=== PATIENT | female | born 1950 | race Caucasian/White ===

== ENCOUNTER 2017-10-20 06:07 | Inpatient (IN) | payer MEDICARE, OTHER, SELFPAY ==
[2017-10-20 06:08] VITALS: BP 173/86; PULSE 70; RESP 22; TEMP 36.4; O2SAT 95; BMI 28.9
--- NOTE | 2017-10-20 06:46 | ED.DCSUM_ITS ---
- ER Visit Summary Date of Service: 10/20/17 Chief Complaint: Nausea and vomiting History of Present Illness: The patient is a 67 F presents by EMS for nausea and vomiting since last evening. Total 4 episodes. No hematemesis. No diarrhea. 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 States his lives in an apartment, states her DPOA is next door. States she has not eaten in 2 days. Denies fever, chills, sweats. No abdominal pain. No cough. Has not vomited in a long while per patient. States unable to keep fluids down. Physical Examination: General: Alert and oriented ?3, no acute distress HEENT: Normocephalic, atraumatic. Moist mucosa membranes Neck: supple, nontender. Cardiovascular: Regular rate and rhythm, no murmurs Respiratory: Normal breath sounds, symmetric, no distress Abdomen: Soft, nontender, nondistended. No guarding or rebound. Negative Sanchez's or McBurney's tenderness. Extremities: Bilateral below knee amputation. No erythema. Neuro: no focal neurological deficits. Test Results: CBC, BMP pending Emergency Department Course and Treatment: Patient vital signs stable. Reports unable to tolerate p.o. intake. She had a emesis bag nearby. IV will be placed , fluids will be given. I will order for basic labs and Zofran. Plan to reevaluate in tests with p.o. challenge. Treatment Plan: [] Disposition: [] Impression: 1. Nausea and vomiting This note was generated with [employer] dictation software. It may contain incorrect words, spelling, and punctuation that were not noted in review of the chart prior to signing ED Disposition - Plan for ED Patient: Disposition: Home or Assisted Living Chief Complaint: Nausea/Vomiting Diagnosis: Nausea & vomiting Instructions: ED Nausea Vomiting Prescriptions: Ondansetron [Zofran Odt] 8 mg PO Q6H PRN PRN #10 PRN Reason: nausea or vomiting Referrals: Jarret Clark MD [Primary Care Provider] - 3-5 Days
[2017-10-20] MEDS: Ondansetron 4 MG/2 ML Vial IV (06:47)
[2017-10-20 06:58] LABS: Anion Gap 16 (5-15); BUN 63 mg/dL (7-18); BUN/Creat Ratio 33.7 RATIO (10-20); Calcium,Total 8.8 mg/dL (8.5-10.1); Chloride 110 mmol/L (98-107); Creatinine, Serum 1.87 mg/dL (0.55-1.02); EST Glomerular Filtration Rate 28 mL/min (>60); Est Glom Filt Rate - Afr Amer 34 mL/min (>60); Estimated Creatinine Clearance 22.77 ml/min; Glucose 235 mg/dL (70-110); Potassium 4.6 mmol/L (3.5-5.1); Sodium Level 140 mmol/L (136-145)
[2017-10-20 07:05] LABS: Absolute Lymphocyte Count 1.15 X10^3/ul (0.83-4.51); Absolute Neutrophil Count 7.7 X10^3/uL (2.0-7.7); Basophil# 0.03 X10^3/uL; Basophil% 0.3 % (0-1); Eosinophil# 0.05 X10^3/uL; Eosinophils% 0.5 % (0-5); Hematocrit 22.3 % (37-47); Hemoglobin 7.3 g/dl (12.0-15.0); Lymphocyte # 1.15 X10^3/ul (4.0); Lymphocyte % 12.3 % (19-41); Mean Corp Hgb Conc 32.7 g/gl (32-36); Mean Corpuscular Hgb 28.9 pg (27.0-32.0); Mean Corpuscular Volume 88.1 fL (81-99); Mean Platelet Vol. 10.2 fl (6.2-12.0); Monocyte# 0.36 X10^3/uL; Monocyte% 3.9 % (0-10); Neutrophil # 7.73 X10^3/uL (2.7-7.7); Neutrophil % 82.9 % (47-70); Platelet Count 418 K/mm3 (150-450); RBC Distribution Width CV 14.7 % (11.6-14.6); Red Blood Count 2.53 M/mm3 (4.2-5.4); White Blood Count 9.3 K/mm3 (4.4-11.0)
[2017-10-20 07:16] LABS: POSITIVE COUNT NO; POSITIVE DIFFERENTIAL NO; POSITIVE MORPHOLOGY NO
--- NOTE | 2017-10-20 07:39 | EKG12_ITS ---
Test Reason : N/V Blood Pressure : / mmHG Vent. Rate : 074 BPM Atrial Rate : 074 BPM P-R Int : 180 ms QRS Dur : 090 ms QT Int : 428 ms P-R-T Axes : 088 073 251 degrees QTc Int : 475 ms Normal sinus rhythm ST & T wave abnormality, consider inferior ischemia ST & T wave abnormality, consider anterolateral ischemia Prolonged QT Abnormal ECG Possible digoxin effect Confirmed by BRYANT KILGORE ([id number]), acquisitions editor TEVIN DE LA ROSA ([id number]) on 10/21/2017 11:35:58 AM Referred By: LORETO Confirmed By:BRYANT KILGORE
--- NOTE | 2017-10-20 08:04 | NURSING ---
called ccadriana suarez, talked to elena paul. she will fax most recent labs, last office visit and med list.
[2017-10-20 08:19] LABS: AST(SGOT) 11 U/L (15-37); Alanine Aminotransfer ALT/SGPT 11 U/L (12-78); Albumin, Serum 3.4 g/dL (3.4-5.0); Alkaline Phosphatase 74 U/L (45-117); Bilirubin, Direct 0.08 mg/dL (0.00-0.30); Globulin 3.4 g/dL (2.2-4.2); Protein, Total 6.8 g/dL (6.4-8.2)
[2017-10-20] MEDS: 0.9% Normal Saline 1,000 ML 999 ML IV (08:20)
[2017-10-20 08:22] LABS: Lipase 74 U/L (73-393)
[2017-10-20 08:23] LABS: Mucous, Urine 0 SEEN /hpf (<or=2+)
[2017-10-20 08:26] LABS: Color, Urine Yellow (Yellow); Glucose, Dipstick 50 mg/dl (Normal); Ketone-Dipstick 50 mg/dl (Negative); Leukocyte Esterase-Dipstick 25 /ul (Negative); Nitrite-Dipstick Negative (Negative); Occult Blood-Urine 10 /ul (Negative); Protein-Dipstick 100 mg/dl (Negative); Urine Bilirubin Dipstick Negative (Negative); Urine Clarity Sl. Cloudy (Clear); Urine Urobilinogen Normal (Normal)
[2017-10-20 08:32] LABS: Bacteria 2+ /hpf (None Seen); Red Blood Cells-Urine 0-5 SEEN /hpf (0-5); Squamous Epithelial Cells - UA 0-5 SEEN /hpf (5-10); White Blood Cells 0-5 SEEN /hpf (0-5)
[2017-10-20 08:32] LABS: Lactic Acid 2.1 mmol/L (0.4-2.0)
[2017-10-20 08:37] VITALS: BP 176/70; PULSE 88; RESP 17; O2SAT 99
[2017-10-20 09:01] VITALS: BP 180/63; PULSE 81; RESP 17; O2SAT 100
--- NOTE | 2017-10-20 09:01 | NURSING ---
MED SURG OBS N, Leonie VARMA
--- NOTE | 2017-10-20 09:19 | ED.RN ---
THIS NURSE NOTIFIED VANIA MARTIN PER PATIENT REQUEST THAT SHE WAS BEING ADMITTED. PATIENT ALSO REQUESTS THAT SHE BE ADDED TO HER CONTACT LIST. [phone]
[2017-10-20 09:58] VITALS: BMI 23.1; BMI 29.0
[2017-10-20] MEDS: 0.9% Normal Saline 1,000 ML 150 ML IV ×3 (10:00→23:02)
[2017-10-20 10:17] VITALS: BP 146/56; PULSE 87; RESP 18; TEMP 36.7; O2SAT 97
[2017-10-20 11:41] LABS: Bedside Glucose 168 mg/dL (70-110)
[2017-10-20] MEDS: Heparin Injection 5,000 UNITS/ML Syringe 5000 UNITS SC ×2 (11:41→22:00)
[2017-10-20 12:00] LABS: Reflex Lactate? Y
[2017-10-20 12:58] LABS: Lactic Acid 1.5 mmol/L (0.4-2.0)
--- NOTE | 2017-10-20 13:04 | HP.PCM_ITS ---
Problem List (1) RIK (acute kidney injury) Status: Acute (2) Dehydration Status: Acute (3) Nausea & vomiting Status: Acute (4) DM2 (diabetes mellitus, type 2) Status: Chronic Qualifiers: Diabetes mellitus complication status: with kidney complications Diabetes mellitus complication detail: with chronic kidney disease Chronic kidney disease stage: stage 3 (moderate) (5) Essential (primary) hypertension Status: Chronic History of Present Illness Date of Admission: 10/20/17 Chief Complaint: Intractable nausea and vomiting The patient is a 67 year old F with past medical history sent on for diabetes mellitus type 2, chronic kidney disease stage III, essential hypertension bilateral below knee amputee who presented with intractable nausea vomiting. Patient symptoms started a day prior to coming in. In addition to above symptoms patient did complain of chills but did not experience any subjective fever. Her symptoms persisted throughout the whole night and elected to present to the ED in the a.m. Patient workup was only significant for slight increase in her creatinine. She was admitted to regular nursing floor for subsequent management. Past Medical History Past Medical History (Chronic Problems): Chronic Problems DM2 (diabetes mellitus, type 2) (Chronic) Essential (primary) hypertension (Chronic) Allergies allopurinol Allergy (Verified 10/20/17 06:16) Unknown bacitracin Allergy (Verified 10/20/17 06:16) Unknown gemfibrozil [Gemfibrozil] Allergy (Verified 10/20/17 06:16) Unknown gentamicin [Gentamicin] Allergy (Verified 10/20/17 06:16) Unknown Penicillins Allergy (Verified 10/20/17 06:16) Unknown pentoxifylline Allergy (Verified 10/20/17 06:16) Unknown pioglitazone Allergy (Verified 10/20/17 06:16) Unknown pioglitazone HCl [From Actos] Allergy (Verified 10/20/17 06:16) Unknown tramadol HCl [From Ultram] Allergy (Verified 10/20/17 06:16) Unknown simvastatin Adverse Reaction (Verified 10/20/17 06:16) Pain in joints Home Medications: Ambulatory Orders Medication Instructions Recorded Enalapril Maleate [Vasotec] 10 mg PO DAILY 07/03/13 Gabapentin [Neurontin] 600 mg PO DAILY 07/03/13 Aspirin 325 mg PO DAILY@0800 07/18/13 Clopidogrel Bisulfate [Plavix] 75 mg PO DAILY 07/18/13 Fluoxetine [Prozac] 10 mg PO DAILY 02/08/14 Meloxicam [Meloxicam] 15 mg PO DAILY 10/20/17 Metformin HCl [Glucophage] 500 mg PO BID 10/20/17 Oxybutynin Chloride [Ditropan Xl] 15 mg PO DAILY 10/20/17 Surgical History: - - Bilateral BKA Lives: Alone Smoking Status: Former smoker - *Family History Maternal History Items: No pertinent history Review of Systems Constitutional: Reports: Chills HEENT: Denies: Head Aches, Sinus Congestion, Sinus Drainage Cardiovascular: Reports: Chest Pain Gastrointestinal: Reports: Nausea, Vomiting. Denies: Diarrhea Genitourinary: Denies: Dysuria, Frequency, Hematuria, Urgency Musculoskeletal: Denies: Joint Pain, Joint Tenderness Skin: Denies: Rash Neurological: Denies: Focal weakness, Numbness, Tingling Psychiatric: Reports: Anxiety Hematologic/ Lymphatic: Denies: Easy Bruising, Easy Bleeding VTE Information - Inpt Only VTE Present on Admission: No VTE Mechan Device Prophylaxis: Knee High QUINTIN Hose VTE Pharm Prophylaxis ordered?: Yes Patient Problems: Active and Suspected Problems Nausea & vomiting (Acute) RIK (acute kidney injury) (Acute) Dehydration (Acute) Objective: GENERAL: Appears ill looking HEENT: Clear conjunctiva, NECK; supple, normal thyroid, CHEST: Clear to auscultation bilaterally,. HEART: Regular S1 S2, no audible murmurs ABDOMEN: soft, normoactive bowel sounds, RECTAL: deferred EXTREMITIES: Right BKA SURGERY SCHEDULER: Awake, no lateralizing signs. SKIN: No rash - Physical Exam Vital Signs Temp Pulse Resp BP Pulse Ox 98.1 F 87 18 146/56 H 97 10/20/17 10:17 10/20/17 10:17 10/20/17 10:17 10/20/17 10:17 10/20/17 10:17 Oxygen Delivery Method Room Air Weight: 66.9 kg Body Mass Index (BMI) 23.1 Laboratory Tests Past 24 Hrs 10/20/17 12:20 Lactic Acid 1.5 POC Glucose 10/20/17 11:34 POC Glucose 168 H Assessment/Plan Active and Suspected Problems Nausea & vomiting (Acute) RIK (acute kidney injury) (Acute) Dehydration (Acute) Patient is a 67 year old lady with past medical history significant for for hypertension, diabetes mellitus type 2, bilateral BKA presented with intractable nausea and vomiting 1. Intractable nausea vomiting suspected to be secondary to gastritis admitted to regular nursing floor for symptomatic treatment with PPI as well as antinausea medication. In view of patient associated chills also ordered for influenza as a 2. Acute kidney injury secondary to dehydration as a result of above patient is on IV fluids with monitoring of electrolyte 3. Diabetes mellitus type 2 patient oral hypoglycemic agents held, subsequently placed on 1800 ADA diet with Accu-Cheks before meals and at bedtime with sliding scale coverage 4. Hypertension-blood pressure controlled, home medications continued with dose adjustment as needed 5. Lactic acidosis secondary to use of metformin; held patient does not have any evidence of sepsis 6. Chronic kidney disease stage III secondary to diabetic nephropathy X 7. Peripheral vascular disease with bilateral lower extremity below-knee amputation patient is currently on dual antiplatelet therapy with aspirin and Plavix did continue 8. Anemia secondary to anemia of chronic disorder/CKD monitoring H&H with plans to transfuse if patient becomes symptomatic or hemoglobin falls below 7. Did order for stool guaiac in addition to iron studies 9. DVT prophylaxis; SC heparin CODE STATUS; full code Code Visit Inpatient E&M: 24313 Init Hosp L3
[2017-10-20 16:15] VITALS: BP 141/61; PULSE 77; RESP 18; TEMP 36.7; O2SAT 97
[2017-10-20 17:26] LABS: Bedside Glucose 191 mg/dL (70-110)
[2017-10-20 20:59] VITALS: BP 104/70; PULSE 95; RESP 16; TEMP 37.2; O2SAT 92
[2017-10-20 22:01] LABS: Bedside Glucose 161 mg/dL (70-110)
[2017-10-20] MEDS: MELATONIN 10 MG TABLET PO (23:01)
[2017-10-21] VITALS (38 sets, daily range): BP systolic 88–122; BP diastolic 47–83; PULSE 62–89; RESP 13–20; TEMP 36.3–37.1; O2SAT 95–100
[2017-10-21] MEDS: 0.9% Normal Saline 1,000 ML 150 ML IV ×3 (05:38→22:57)
[2017-10-21 06:40] LABS: Anion Gap 12 (5-15); BUN 38 mg/dL (7-18); BUN/Creat Ratio 27.9 RATIO (10-20); Calcium,Total 7.8 mg/dL (8.5-10.1); Chloride 112 mmol/L (98-107); Creatinine, Serum 1.36 mg/dL (0.55-1.02); EST Glomerular Filtration Rate 41 mL/min (>60); Est Glom Filt Rate - Afr Amer 50 mL/min (>60); Glucose 186 mg/dL (70-110); Magnesium 1.7 mg/dL (1.6-2.6); Sodium Level 138 mmol/L (136-145)
[2017-10-21 06:41] LABS: Bedside Glucose 175 mg/dL (70-110)
[2017-10-21] MEDS: FLUoxetine 10 MG Capsule PO (08:21)
[2017-10-21] MEDS: Aspirin 325 MG Tablet PO (08:21)
[2017-10-21] MEDS: Clopidogrel Bisulfate 75 MG Tablet PO (08:21)
[2017-10-21] MEDS: Heparin Injection 5,000 UNITS/ML Syringe 5000 UNITS SC (08:21)
[2017-10-21] MEDS: Lisinopril 10 MG Tablet PO (08:21)
[2017-10-21] MEDS: Gabapentin 100 MG Capsule PO ×3 (08:21→16:54)
[2017-10-21] MEDS: Tolterodine Tartrate 4 MG CAP.SA PO (08:24)
--- NOTE | 2017-10-21 09:15 | PCM.PN.HOSP ---
Patient Problems: Active and Suspected Problems Nausea & vomiting (Acute) RIK (acute kidney injury) (Acute) Dehydration (Acute) Subjective: Patient seen still complains of nausea. She however has a new symptom which is significant epigastric discomfort. EKG obtained reviewed demonstrated anterolateral ischemia which is not new. Subsequently ordered serial cardiac enzymes and a nuclear stress test to be performed on 10/22/17 Objective: GENERAL: Appears ill looking HEENT: Clear conjunctiva, NECK; supple, normal thyroid, CHEST: Clear to auscultation bilaterally,. HEART: Regular S1 S2, no audible murmurs ABDOMEN: soft, normoactive bowel sounds, RECTAL: deferred EXTREMITIES: Bilateral BKA ESTATE PLANNING DIRECTOR: Awake, no lateralizing signs. SKIN: No rash Vitals/I&O's: Vital Signs Temp Pulse Resp BP Pulse Ox 98.2 F 89 18 105/70 95 10/21/17 03:00 10/21/17 03:00 10/21/17 03:00 10/21/17 03:00 10/21/17 03:00 Oxygen Delivery Method Room Air Weight: 66.9 kg Body Mass Index (BMI) 23.1 Intake and Output for Last 24 Hours 10/19/17 10/20/17 10/21/17 23:59 23:59 23:59 Intake Total 1450 / 1450 919 / 919 Balance 1450 / 1450 919 / 919 Laboratory Results 10/20/17 11:34: POC Glucose 168 H 10/20/17 12:20: Lactic Acid 1.5 10/20/17 17:20: POC Glucose 191 H 10/20/17 21:54: POC Glucose 161 H 10/21/17 05:52: Sodium 138, Potassium 4.0, Chloride 112 H, Carbon Dioxide 14.0 L, Anion Gap 12, BUN 38 H, Creatinine 1.36 H, Estim Creat Clear Calc 38.50, Est GFR (MDRD) Af Amer 50 L, Est GFR (MDRD) Non-Af 41 L, BUN/Creatinine Ratio 27.9 H, Glucose 186 H, Calcium 7.8 L, Magnesium 1.7 10/21/17 06:34: POC Glucose 175 H Current Medications Aspirin (Aspirin) 325 mg PO DAILY@0800 [facility] Last Admin: 10/21/17 08:21 Dose: 325 mg Clopidogrel Bisulfate (Plavix) 75 mg PO DAILY [facility] Last Admin: 10/21/17 08:21 Dose: 75 mg Dextrose (D50w Syringe) 0 gm IV X1 PRN; Protocol PRN Reason: Hypoglycemia Fluoxetine HCl (Prozac) 10 mg PO DAILY [facility] Last Admin: 10/21/17 08:21 Dose: 10 mg Gabapentin (Neurontin) 100 mg PO TIDCM [facility] Last Admin: 10/21/17 08:21 Dose: 100 mg Glucagon () 1 mg IM .X1 PRN PRN Reason: Hypoglycemia Heparin Sodium (Porcine) () 5,000 units SC BID [facility] Last Admin: 10/21/17 08:21 Dose: 5,000 units Sodium Chloride () 1,000 mls @ 150 mls/hr IV .Q6H40M [facility] Last Admin: 10/21/17 05:38 Dose: 150 mls/hr Insulin Aspart (Novolog Flexpen (Bkc)) 0 units SC TIDAC [facility] PRN Reason: Protocol Last Admin: 10/21/17 06:36 Dose: Not Given Lisinopril (Zestril) 10 mg PO DAILY [facility] Last Admin: 10/21/17 08:21 Dose: 10 mg Magnesium Hydroxide (Milk Of Magnesia) 30 ml PO DAILY PRN PRN PRN Reason: Constipation Melatonin (Melatonin) 10 mg PO QHS [facility] Last Admin: 10/20/17 23:01 Dose: 10 mg Sodium Chloride () 5 - 30 ml IV UD PRN PRN Reason: SALINE FLUSH Tolterodine Tartrate (Detrol La) 4 mg PO DAILY [facility] Last Admin: 10/21/17 08:24 Dose: 4 mg Assessment/Plan Active and Suspected Problems Nausea & vomiting (Acute) RIK (acute kidney injury) (Acute) Dehydration (Acute) Patient is a 67 year old lady with past medical history significant for for hypertension, diabetes mellitus type 2, bilateral BKA presented with intractable nausea and vomiting 1. Intractable nausea vomiting suspected to be secondary to gastritis admitted to regular nursing floor for symptomatic treatment with PPI as well as antinausea medication. In view of patient associated chills also ordered for influenza as a 2. Acute kidney injury secondary to dehydration as a result of above patient is on IV fluids with monitoring of electrolyte. Patient's kidney function improving 3. Chest pain ordered serial cardiac enzymes and EKGs. Given patient significant risk factors including her peripheral vascular disease, hypertension and diabetes mellitus type 2 ordered Lexiscan stress test to be performed on 10/22/17 4. Diabetes mellitus type 2 patient oral hypoglycemic agents held, subsequently placed on 1800 ADA diet with Accu-Cheks before meals and at bedtime with sliding scale coverage 5. Hypertension-blood pressure controlled, home medications continued with dose adjustment as needed 6. Lactic acidosis secondary to use of metformin; held patient does not have any evidence of sepsis 7. Chronic kidney disease stage III secondary to diabetic nephropathy X 8. Peripheral vascular disease with bilateral lower extremity below-knee amputation patient is currently on dual antiplatelet therapy with aspirin and Plavix did continue 9. Anemia secondary to anemia of chronic disorder/CKD monitoring H&H with plans to transfuse if patient becomes symptomatic or hemoglobin falls below 7. Did order for stool guaiac in addition to iron studies 10. DVT prophylaxis; SC heparin CODE STATUS; full code Code Visit OBSV E&M: 37006 Subsequent observation care L3
--- NOTE | 2017-10-21 09:24 | PN_ITS ---
Patient Problems: Active and Suspected Problems Nausea & vomiting (Acute) RIK (acute kidney injury) (Acute) Dehydration (Acute) Subjective: Patient seen still complains of nausea. She however has a new symptom which is significant epigastric discomfort. EKG obtained reviewed demonstrated anterolateral ischemia which is not new. Subsequently ordered serial cardiac enzymes and a nuclear stress test to be performed on 10/22/17 Objective: GENERAL: Appears ill looking HEENT: Clear conjunctiva, NECK; supple, normal thyroid, CHEST: Clear to auscultation bilaterally,. HEART: Regular S1 S2, no audible murmurs ABDOMEN: soft, normoactive bowel sounds, RECTAL: deferred EXTREMITIES: Bilateral BKA COURTROOM CLERK: Awake, no lateralizing signs. SKIN: No rash Vitals/I&O's: Vital Signs Temp Pulse Resp BP Pulse Ox 98.2 F 89 18 105/70 95 10/21/17 03:00 10/21/17 03:00 10/21/17 03:00 10/21/17 03:00 10/21/17 03:00 Oxygen Delivery Method Room Air Weight: 66.9 kg Body Mass Index (BMI) 23.1 Intake and Output for Last 24 Hours 10/19/17 10/20/17 10/21/17 23:59 23:59 23:59 Intake Total 1450 / 1450 919 / 919 Balance 1450 / 1450 919 / 919 Laboratory Results 10/20/17 11:34: POC Glucose 168 H 10/20/17 12:20: Lactic Acid 1.5 10/20/17 17:20: POC Glucose 191 H 10/20/17 21:54: POC Glucose 161 H 10/21/17 05:52: Sodium 138, Potassium 4.0, Chloride 112 H, Carbon Dioxide 14.0 L , Anion Gap 12, BUN 38 H, Creatinine 1.36 H, Estim Creat Clear Calc 38.50, Est GFR (MDRD) Af Amer 50 L, Est GFR (MDRD) Non-Af 41 L, BUN/Creatinine Ratio 27.9 H , Glucose 186 H, Calcium 7.8 L, Magnesium 1.7 10/21/17 06:34: POC Glucose 175 H Current Medications Aspirin (Aspirin) 325 mg PO DAILY@0800 [facility] Last Admin: 10/21/17 08:21 Dose: 325 mg Clopidogrel Bisulfate (Plavix) 75 mg PO DAILY [facility] Last Admin: 10/21/17 08:21 Dose: 75 mg Dextrose (D50w Syringe) 0 gm IV X1 PRN; Protocol PRN Reason: Hypoglycemia Fluoxetine HCl (Prozac) 10 mg PO DAILY [facility] Last Admin: 10/21/17 08:21 Dose: 10 mg Gabapentin (Neurontin) 100 mg PO TIDCM [facility] Last Admin: 10/21/17 08:21 Dose: 100 mg Glucagon () 1 mg IM .X1 PRN PRN Reason: Hypoglycemia Heparin Sodium (Porcine) () 5,000 units SC BID [facility] Last Admin: 10/21/17 08:21 Dose: 5,000 units Sodium Chloride () 1,000 mls @ 150 mls/hr IV .Q6H40M [facility] Last Admin: 10/21/17 05:38 Dose: 150 mls/hr Insulin Aspart (Novolog Flexpen (Bkc)) 0 units SC TIDAC [facility] PRN Reason: Protocol Last Admin: 10/21/17 06:36 Dose: Not Given Lisinopril (Zestril) 10 mg PO DAILY [facility] Last Admin: 10/21/17 08:21 Dose: 10 mg Magnesium Hydroxide (Milk Of Magnesia) 30 ml PO DAILY PRN PRN PRN Reason: Constipation Melatonin (Melatonin) 10 mg PO QHS [facility] Last Admin: 10/20/17 23:01 Dose: 10 mg Sodium Chloride () 5 - 30 ml IV UD PRN PRN Reason: SALINE FLUSH Tolterodine Tartrate (Detrol La) 4 mg PO DAILY [facility] Last Admin: 10/21/17 08:24 Dose: 4 mg Assessment/Plan Active and Suspected Problems Nausea & vomiting (Acute) RIK (acute kidney injury) (Acute) Dehydration (Acute) Patient is a 67 year old lady with past medical history significant for for hypertension, diabetes mellitus type 2, bilateral BKA presented with intractable nausea and vomiting 1. Intractable nausea vomiting suspected to be secondary to gastritis admitted to regular nursing floor for symptomatic treatment with PPI as well as antinausea medication. In view of patient associated chills also ordered for influenza as a 2. Acute kidney injury secondary to dehydration as a result of above patient is on IV fluids with monitoring of electrolyte. Patient's kidney function improving 3. Chest pain ordered serial cardiac enzymes and EKGs. Given patient significant risk factors including her peripheral vascular disease, hypertension and diabetes mellitus type 2 ordered Lexiscan stress test to be performed on 10/22/17 4. Diabetes mellitus type 2 patient oral hypoglycemic agents held, subsequently placed on 1800 ADA diet with Accu-Cheks before meals and at bedtime with sliding scale coverage 5. Hypertension-blood pressure controlled, home medications continued with dose adjustment as needed 6. Lactic acidosis secondary to use of metformin; held patient does not have any evidence of sepsis 7. Chronic kidney disease stage III secondary to diabetic nephropathy X 8. Peripheral vascular disease with bilateral lower extremity below-knee amputation patient is currently on dual antiplatelet therapy with aspirin and Plavix did continue 9. Anemia secondary to anemia of chronic disorder/CKD monitoring H&H with plans to transfuse if patient becomes symptomatic or hemoglobin falls below 7. Did order for stool guaiac in addition to iron studies 10. DVT prophylaxis; SC heparin CODE STATUS; full code Code Visit OBSV E&M: 83423 Subsequent observation care L3
--- NOTE | 2017-10-21 09:28 | NURSING ---
0850-NOTIFIED BY BURRING WHEEL OPERATOR, MARIE-PT REPORTING MIDSTERNAL CHEST PAIN THAT HAS BEEN THERE ON/OFF SINCE YESTERDAY. VITALS RECENTLY OBTAINED. NOTIFIED.
--- NOTE | 2017-10-21 09:47 | EKG12_ITS ---
Test Reason : Blood Pressure : / mmHG Vent. Rate : 084 BPM Atrial Rate : 084 BPM P-R Int : 184 ms QRS Dur : 086 ms QT Int : 442 ms P-R-T Axes : 013 062 175 degrees QTc Int : 522 ms Normal sinus rhythm ST & T wave abnormality, consider anterolateral ischemia Prolonged QT Abnormal ECG When compared with ECG of 20-OCT-2017 07:50, MANUAL COMPARISON REQUIRED, DATA IS UNCONFIRMED Confirmed by DIMAS JOHNSON, SAUNDRA ([id number]), manager editorial TEVIN DE LA ROSA ([id number]) on 10/29/2017 11:58:36 AM Referred By: SUKHJINDER Confirmed By:SAUNDRA COCHRAN MD
--- NOTE | 2017-10-21 09:51 | NURSING ---
aware of orders to transfer pt to ICU, primary RN placing on tele, cps informed of stat EKG. Telegraph Dispatcher informed of orders awaiting bed. pt requesting Janeth contact lens flashing puncher to be notified. Janeth called by this nurse, awaRe she will be on her way in and was informed of transfer to icu order
--- NOTE | 2017-10-21 10:14 | NURSING ---
REPORT CALLED TO FRANKLIN AMAYA ON ICU FOR TRANSFER.
--- NOTE | 2017-10-21 10:33 | ECHOD_ITS ---
Reason For Study: S/P AK Procedure This was a 2D Doppler, Color Flow transthoracic echocardiogram. Exam performed portable in ICU/CCU. Left Ventricle Normal size and thickness. The estimated ejection fraction is 30-35 %. Anterior, Anterior apical akinesis. Right Ventricle Thickened RV free wall, consider pericardial fat. Atria The left atrium is mildly enlarged. Normal right atrium. Bubble contrast study negative for right to left interatrial shunt. Mitral Valve Moderate (2+) mitral valve insufficiency. Tricuspid Valve Trivial tricuspid valve insufficiency. Aortic Valve The aortic valve is not well visualized. Pulmonic Valve The pulmonic valve is not well visualized. Great Vessels Normal aortic root. Pericardium/Pleural No pericardial effusion. Pericardial fat pad. Medication Performed a rapid injection of agitated mix of 9 cc saline and 1cc air to assess for atrial septal defect. MMode/2D Measurements & Calculations LVIDd: 4.6 cm IVSd: 1.6 cm Ao root diam: 3.1 cm LVIDs: 3.3 cm LVPWd: 1.5 cm LA dimension: 3.7 cm RVDd: 2.7 cm FS: 29.4 % LAV(MOD-bp): 52.4 ml LAV(MOD-bp) Indexed: 29.4 ml/m2 LA A4 area: 16.8 cm2 RA A4 area: 9.9 cm2 LAV(MOD-sp2): 75.0 ml LAV(MOD-sp4): 37.0 ml Doppler Measurements & Calculations MV E max mayito: 52.6 cm/sec Lat Peak E' Mayito: 3.7 cm/sec Med Peak E' Mayito: 3.0 cm/sec MV A max mayito: 66.0 cm/sec E/E' lat: 14.3 E/E' med: 17.4 MV E/A: 0.80 Ao V2 max: 119.9 cm/sec LV V1 max: 79.4 cm/sec PA V2 max: 110.0 cm/sec Ao max P.8 mmHg LV V1 max P.5 mmHg TR max mayito: 281.0 cm/sec TR max P.7 mmHg Interpretation Summary The estimated ejection fraction is 30-35 %. Anterior, Anterior apical akinesis Thickened RV free wall, consider pericardial fat Moderate (2+) mitral valve insufficiency. Ordering Physician: Brock Villafuerte Referring Physician: MD Jarret Clark Performed By: Madalyn Terry RDCS
[2017-10-21 11:36] LABS: Bedside Glucose 179 mg/dL (70-110)
[2017-10-21] MEDS: Metoprolol Tartrate 25 MG Tablet 12.5 MG PO ×2 (11:36→22:56)
[2017-10-21 11:40] LABS: International Normalized Ratio 1.4; Prothrombin Time (Protime)PT. 16.2 SECONDS (11.7-14.9)
[2017-10-21 11:41] LABS: Partial Thromboplast Time 37.3 Seconds (24.1-36.2)
--- NOTE | 2017-10-21 11:56 | PCM.CONS.C ---
Problem List (1) NSTEMI (non-ST elevated myocardial infarction) Status: Acute Reason for Consult Date of Consultation: 10/21/17 History of Present Illness: The patient is a 67 year old F with past medical history significant for diabetes mellitus, hypertension, chronic kidney disease and peripheral arterial disease. She is status post bilateral below knee amputations. Patient presented to the hospital with complaints of intractable nausea and vomiting that started day before yesterday. It lasted the night and she was therefore admitted to the hospital. In, she also had some vague chest discomfort. Troponins were checked. They were noted to be elevated consistent with a non-ST elevation myocardial infarction. Patient not aware of any previous history of coronary artery disease. Records from the [facility] showed that she has had echocardiogram done which showed anterior and anteroseptal akinesis. She apparently also had a stress test done suggested possibility of an anterior scar with minimal rosalie-infarct ischemia. Patient denies any history of angina pectoris. Her functional capacity is limited secondary to her bilateral below knee amputations. She denies any history of orthopnea paroxysmal nocturnal dyspnea. No history of CVA. Denies any shortness of breath. [] Past Medical History Allergies/Adverse Reactions: Allergies allopurinol Allergy (Verified 10/20/17 06:16) Unknown bacitracin Allergy (Verified 10/20/17 06:16) Unknown gemfibrozil [Gemfibrozil] Allergy (Verified 10/20/17 06:16) Unknown gentamicin [Gentamicin] Allergy (Verified 10/20/17 06:16) Unknown Penicillins Allergy (Verified 10/20/17 06:16) Unknown pentoxifylline Allergy (Verified 10/20/17 06:16) Unknown pioglitazone Allergy (Verified 10/20/17 06:16) Unknown pioglitazone HCl [From Actos] Allergy (Verified 10/20/17 06:16) Unknown tramadol HCl [From Ultram] Allergy (Verified 10/20/17 06:16) Unknown simvastatin Adverse Reaction (Verified 10/20/17 06:16) Pain in joints Home Medications: Ambulatory Orders Medication Instructions Recorded Enalapril Maleate [Vasotec] 10 mg PO DAILY 07/03/13 Gabapentin [Neurontin] 600 mg PO DAILY 07/03/13 Aspirin 325 mg PO DAILY@0800 07/18/13 Clopidogrel Bisulfate [Plavix] 75 mg PO DAILY 07/18/13 Fluoxetine [Prozac] 10 mg PO DAILY 02/08/14 Meloxicam [Meloxicam] 15 mg PO DAILY 10/20/17 Metformin HCl [Glucophage] 500 mg PO BID 10/20/17 Oxybutynin Chloride [Ditropan Xl] 15 mg PO DAILY 10/20/17 Past Medical History (Chronic Problems): Chronic Problems DM2 (diabetes mellitus, type 2) (Chronic) Essential (primary) hypertension (Chronic) Surgical History: - - Bilateral BKA - *Family History Maternal History Items: No pertinent history Lives: Alone Smoking Status: Former smoker Review of Systems - Review of Systems General: Reports: Normal Appetite. Denies: Anorexia Cardiovascular: Denies: Chest Discomfort, Shortness of Breath, PND, Near Syncope, Syncope Respiratory: Denies: Hemoptysis, Shortness of Breath, Wheezing Gastrointestinal: Reports: Nausea, Emesis. Denies: Hematemesis, Hematochezia, Melena Skin: Denies: Jaundice Neurological: Denies: History of TIA, History of CVA Psychiatric: Reports: Depression Endocrine: Denies: Heat Intolerance, Cold Intolerance Hematologic/ Lymphatic: Denies: Easy Brusing, Easy Bleeding Subjectve: Comfortable. No apparent distress. Lying flat in the bed. Objective: Vital Signs Temp Pulse Resp BP Pulse Ox 98.3 F 84 18 116/70 95 10/21/17 08:20 10/21/17 11:36 10/21/17 08:20 10/21/17 11:36 10/21/17 08:20 Oxygen Delivery Method Nasal Cannula Weight: 66.9 kg Body Mass Index (BMI) 23.1 Intake and Output for Last 24 Hours 10/19/17 10/20/17 10/21/17 23:59 23:59 23:59 Intake Total 1450 / 1450 919 / 919 Balance 1450 / 1450 919 / 919 General: Awake, Alert, Oriented x 3 HEENT: Atraumatic, Normocephalic, Pallor Oral: Moist Mucosa Neck: Supple, No JVD Lungs: Clear to auscultation Cardiovascular: Regular Rhythm, Normal S1, Normal S2, No Murmurs Vascular: No Carotid Bruits Abdomen: Bowel Sounds Present, Soft, Non Tender Extremities: - - Bilateral below knee amputations Neurological: No Focal Motor or Sensory Deficit Psych/Mental Status: Appropriate 10/20/17 12:20: Lactic Acid 1.5 10/21/17 05:52: Sodium 138, Potassium 4.0, Chloride 112 H, Carbon Dioxide 14.0 L, Anion Gap 12, BUN 38 H, Creatinine 1.36 H, Est GFR (MDRD) Af Amer 50 L, Est GFR (MDRD) Non-Af 41 L, BUN/Creatinine Ratio 27.9 H, Glucose 186 H, Calcium 7.8 L, Magnesium 1.7 10/21/17 09:15: Troponin I 20.60 H* 10/21/17 11:15: PT 16.2 H, INR 1.4, APTT 37.3 H Rhythm: Normal sinus rhythm EKG: EKG shows normal sinus rhythm. ST-T changes consistent with anterolateral ischemia. She also had similar ST changes on an EKG from 2012. Since then, however she has developed new ST changes in inferior leads suggestive of inferior ischemia as well ECHO: Preliminary echocardiography shows ejection fraction of 30-35% Assessment/Plan 1. Non-ST elevation myocardial infarction. Patient has new ST segment changes in inferior leads. Continue with aspirin and Plavix. She has been ordered a heparin infusion. Monitor H&H closely. Recommend doing a stool guaiac examination to evaluate for occult blood prior to starting heparin infusion 2. Start low-dose beta blockers. Nitropaste next 3. Patient will eventually need coronary angiography to evaluate her coronary anatomy and possible revascularization. However I will defer that for now in view of her significant anemia and mild renal insufficiency. Monitor H&H closely. If her hemoglobin stays stable, then would proceed with coronary angiography. The plan was discussed with the patient. Risks benefits and alternatives explained. She understands and agrees 4. Severe LV systolic dysfunction. Ischemic cardiomyopathy. Be judicious with IV fluids not to overload her. Patient is on HEATHER inhibitors. Start low-dose beta blockers clinically patient is euvolemic at present 5. Severe anemia. Manage as per internal medicine. However in view of her NSTEMI, recommend keeping hemoglobin more than 8. Transfuse 1 unit PRBC 6. Renal insufficiency. Recommend consultation with nephrology next 7. History of peripheral arterial disease status post bilateral below-knee amputations 8. Diabetes mellitus 9. Will continue to follow with you
--- NOTE | 2017-10-21 12:10 | CON.PCM_ITS ---
Problem List (1) NSTEMI (non-ST elevated myocardial infarction) Status: Acute Reason for Consult Date of Consultation: 10/21/17 History of Present Illness: The patient is a 67 year old F with past medical history significant for diabetes mellitus, hypertension, chronic kidney disease and peripheral arterial disease. She is status post bilateral below knee amputations. Patient presented to the hospital with complaints of intractable nausea and vomiting that started day before yesterday. It lasted the night and she was therefore admitted to the hospital. In, she also had some vague chest discomfort. Troponins were checked. They were noted to be elevated consistent with a non-ST elevation myocardial infarction. Patient not aware of any previous history of coronary artery disease. Records from the [facility] showed that she has had echocardiogram done which showed anterior and anteroseptal akinesis. She apparently also had a stress test done suggested possibility of an anterior scar with minimal rosalie- infarct ischemia. Patient denies any history of angina pectoris. Her functional capacity is limited secondary to her bilateral below knee amputations. She denies any history of orthopnea paroxysmal nocturnal dyspnea. No history of CVA. Denies any shortness of breath. [] Past Medical History Allergies/Adverse Reactions: Allergies allopurinol Allergy (Verified 10/20/17 06:16) Unknown bacitracin Allergy (Verified 10/20/17 06:16) Unknown gemfibrozil [Gemfibrozil] Allergy (Verified 10/20/17 06:16) Unknown gentamicin [Gentamicin] Allergy (Verified 10/20/17 06:16) Unknown Penicillins Allergy (Verified 10/20/17 06:16) Unknown pentoxifylline Allergy (Verified 10/20/17 06:16) Unknown pioglitazone Allergy (Verified 10/20/17 06:16) Unknown pioglitazone HCl [From Actos] Allergy (Verified 10/20/17 06:16) Unknown tramadol HCl [From Ultram] Allergy (Verified 10/20/17 06:16) Unknown simvastatin Adverse Reaction (Verified 10/20/17 06:16) Pain in joints Home Medications: Ambulatory Orders Medication Instructions Recorded Enalapril Maleate [Vasotec] 10 mg PO DAILY 07/03/13 Gabapentin [Neurontin] 600 mg PO DAILY 07/03/13 Aspirin 325 mg PO DAILY@0800 07/18/13 Clopidogrel Bisulfate [Plavix] 75 mg PO DAILY 07/18/13 Fluoxetine [Prozac] 10 mg PO DAILY 02/08/14 Meloxicam [Meloxicam] 15 mg PO DAILY 10/20/17 Metformin HCl [Glucophage] 500 mg PO BID 10/20/17 Oxybutynin Chloride [Ditropan Xl] 15 mg PO DAILY 10/20/17 Past Medical History (Chronic Problems): Chronic Problems DM2 (diabetes mellitus, type 2) (Chronic) Essential (primary) hypertension (Chronic) Surgical History: - - Bilateral BKA - *Family History Maternal History Items: No pertinent history Lives: Alone Smoking Status: Former smoker Review of Systems - Review of Systems General: Reports: Normal Appetite. Denies: Anorexia Cardiovascular: Denies: Chest Discomfort, Shortness of Breath, PND, Near Syncope , Syncope Respiratory: Denies: Hemoptysis, Shortness of Breath, Wheezing Gastrointestinal: Reports: Nausea, Emesis. Denies: Hematemesis, Hematochezia, Melena Skin: Denies: Jaundice Neurological: Denies: History of TIA, History of CVA Psychiatric: Reports: Depression Endocrine: Denies: Heat Intolerance, Cold Intolerance Hematologic/ Lymphatic: Denies: Easy Brusing, Easy Bleeding Subjectve: Comfortable. No apparent distress. Lying flat in the bed. Objective: Vital Signs Temp Pulse Resp BP Pulse Ox 98.3 F 84 18 116/70 95 10/21/17 08:20 10/21/17 11:36 10/21/17 08:20 10/21/17 11:36 10/21/17 08:20 Oxygen Delivery Method Nasal Cannula Weight: 66.9 kg Body Mass Index (BMI) 23.1 Intake and Output for Last 24 Hours 10/19/17 10/20/17 10/21/17 23:59 23:59 23:59 Intake Total 1450 / 1450 919 / 919 Balance 1450 / 1450 919 / 919 General: Awake, Alert, Oriented x 3 HEENT: Atraumatic, Normocephalic, Pallor Oral: Moist Mucosa Neck: Supple, No JVD Lungs: Clear to auscultation Cardiovascular: Regular Rhythm, Normal S1, Normal S2, No Murmurs Vascular: No Carotid Bruits Abdomen: Bowel Sounds Present, Soft, Non Tender Extremities: - - Bilateral below knee amputations Neurological: No Focal Motor or Sensory Deficit Psych/Mental Status: Appropriate 10/20/17 12:20: Lactic Acid 1.5 10/21/17 05:52: Sodium 138, Potassium 4.0, Chloride 112 H, Carbon Dioxide 14.0 L , Anion Gap 12, BUN 38 H, Creatinine 1.36 H, Est GFR (MDRD) Af Amer 50 L, Est GFR (MDRD) Non-Af 41 L, BUN/Creatinine Ratio 27.9 H, Glucose 186 H, Calcium 7.8 L, Magnesium 1.7 10/21/17 09:15: Troponin I 20.60 H* 10/21/17 11:15: PT 16.2 H, INR 1.4, APTT 37.3 H Rhythm: Normal sinus rhythm EKG: EKG shows normal sinus rhythm. ST-T changes consistent with anterolateral ischemia. She also had similar ST changes on an EKG from 2012. Since then, however she has developed new ST changes in inferior leads suggestive of inferior ischemia as well ECHO: Preliminary echocardiography shows ejection fraction of 30-35% Assessment/Plan 1. Non-ST elevation myocardial infarction. Patient has new ST segment changes in inferior leads. Continue with aspirin and Plavix. She has been ordered a heparin infusion. Monitor H&H closely. Recommend doing a stool guaiac examination to evaluate for occult blood prior to starting heparin infusion 2. Start low-dose beta blockers. Nitropaste next 3. Patient will eventually need coronary angiography to evaluate her coronary anatomy and possible revascularization. However I will defer that for now in view of her significant anemia and mild renal insufficiency. Monitor H&H closely. If her hemoglobin stays stable, then would proceed with coronary angiography. The plan was discussed with the patient. Risks benefits and alternatives explained. She understands and agrees 4. Severe LV systolic dysfunction. Ischemic cardiomyopathy. Be judicious with IV fluids not to overload her. Patient is on HEATHER inhibitors. Start low- dose beta blockers clinically patient is euvolemic at present 5. Severe anemia. Manage as per internal medicine. However in view of her NSTEMI, recommend keeping hemoglobin more than 8. Transfuse 1 unit PRBC 6. Renal insufficiency. Recommend consultation with nephrology next 7. History of peripheral arterial disease status post bilateral below-knee amputations 8. Diabetes mellitus 9. Will continue to follow with you
[2017-10-21 13:12] LABS: Hematocrit 20.5 % (37-47); Hemoglobin 6.6 g/dl (12.0-15.0); Mean Corp Hgb Conc 32.2 g/gl (32-36); Mean Corpuscular Hgb 29.3 pg (27.0-32.0); Mean Corpuscular Volume 91.1 fL (81-99); Mean Platelet Vol. 10.3 fl (6.2-12.0); Platelet Count 337 K/mm3 (150-450); RBC Distribution Width CV 15.4 % (11.6-14.6); RBC Distribution Width SD 47.7 fl (35.1-43.9); Red Blood Count 2.25 M/mm3 (4.2-5.4); White Blood Count 10.2 K/mm3 (4.4-11.0)
[2017-10-21 13:17] LABS: Scan Indicated on CBC? Y/N NO
[2017-10-21 13:38] LABS: M R Staph aureus DNA By PCR POSITIVE (Negative); Probe Check PASS
[2017-10-21] MEDS: Nitroglycerin Oint 1 INCH PACKET TRANSDERM. ×2 (14:14→22:44)
[2017-10-21 14:52] LABS: Immature Platelet Fraction 1.4 % (1.0-7.9); RET-HE 30.4 pg (30-35); Reticulocyte Count 5.88 % (0.5-1.5)
[2017-10-21 15:46] LABS: Iron 41 ug/dL (50-170); Iron Binding Capacity,Total 300 ug/dL (250-450); PERCENT IRON SATURATION 13.7 % (15.0-55.0)
--- NOTE | 2017-10-21 16:35 | CHAPLAIN ---
Type of Pastoral Visit _x__ Initial Visit ___ Follow-up Visit ___ On-call Visit ___ General Patient Visit ___ Spiritual Assessment ___ Family Conference ___ Bereavement ___ Rapid Response ___ Code Blue ___ Other (describe below) Pastoral Care Referral From _x__ Patient ___ Family _x__ Nurse ___ Physician ___ Director Of Partner Marketing ___ Computer Designer ___ Other (describe below) Sacrament/Intervention _x__ Active listening ___ Anointing ___ Rastafarian ___ Bereavement ___ Communion _x__ Sabina exploration ___ ___ Life review _x__ Prayer ___ Reconciliation ___ Sacrament of Sick _x__ Supportive presence ___ Wedding ___ Other (describe below) Pastoral Comments
[2017-10-21] MEDS: 0.9% NaCl Peripheral Flush Adult/Peds IV (16:54)
[2017-10-21 16:55] LABS: Bedside Glucose 159 mg/dL (70-110)
[2017-10-21] MEDS: Furosemide 20 MG/2 ML VIAL IV (17:56)
[2017-10-21 19:09] LABS: Hemoglobin 7.4 g/dl (12.0-15.0)
[2017-10-21 19:10] LABS: Hematocrit 22.9 % (37-47)
[2017-10-21] MEDS: MELATONIN 10 MG TABLET PO (22:44)
[2017-10-21 22:56] LABS: Bedside Glucose 183 mg/dL (70-110)
[2017-10-22] VITALS (36 sets, daily range): BP systolic 72–137; BP diastolic 34–73; PULSE 46–71; RESP 10–17; TEMP 36.6–37; O2SAT 95–100
[2017-10-22 04:43] LABS: Hematocrit 25.2 % (37-47); Hemoglobin 8.4 g/dl (12.0-15.0)
[2017-10-22 05:22] LABS: Anion Gap 11 (5-15); BUN 31 mg/dL (7-18); BUN/Creat Ratio 20.7 RATIO (10-20); Calcium,Total 7.4 mg/dL (8.5-10.1); Chloride 110 mmol/L (98-107); EST Glomerular Filtration Rate 37 mL/min (>60); Est Glom Filt Rate - Afr Amer 44 mL/min (>60); Estimated Creatinine Clearance 34.91 ml/min; Glucose 204 mg/dL (70-110); Potassium 4.1 mmol/L (3.5-5.1); Sodium Level 137 mmol/L (136-145)
[2017-10-22] MEDS: 0.9% NaCl Peripheral Flush Adult/Peds IV (05:28)
[2017-10-22] MEDS: 0.9% Normal Saline 1,000 ML 150 ML IV (05:28)
[2017-10-22] MEDS: Nitroglycerin Oint 1 INCH PACKET TRANSDERM. (05:29)
[2017-10-22 06:11] LABS: Bedside Glucose 194 mg/dL (70-110)
--- NOTE | 2017-10-22 07:13 | PN_ITS ---
Patient Problems: Active and Suspected Problems Nausea & vomiting (Acute) RIK (acute kidney injury) (Acute) Dehydration (Acute) NSTEMI (non-ST elevated myocardial infarction) (Acute) Subjective: Patient was transferred on the regular nursing floor to the ICU on 10/21/17 following development of chest pain and subsequent elevation in her troponin level consistent with acute non-ST PA. Patient was also found to have drop in her hemoglobin level from 1.3 on admission to 6.6. Patient was transfused 2 units PRBC and order given by cardiology. Patient was not started on heparin in view of her significant anemia consultation was placed to Dr. Aquino for possible endoscopic evaluation as part of management of his severe anemia. Decision for patient to undergo intervention deferred to cardiology. Objective: GENERAL: Appears ill looking HEENT: Clear conjunctiva, NECK; supple, normal thyroid, CHEST: Clear to auscultation bilaterally,. HEART: Regular S1 S2, no audible murmurs ABDOMEN: soft, normoactive bowel sounds, RECTAL: deferred EXTREMITIES: Bilateral BKA LINE CLOSER: Awake, no lateralizing signs. SKIN: No rash Vitals/I&O's: Vital Signs Temp Pulse Resp BP Pulse Ox 97.9 F 65 16 137/66 H 97 10/22/17 05:00 10/22/17 06:00 10/22/17 06:00 10/22/17 06:00 10/22/17 06:00 Oxygen Flow Rate 2 Oxygen Delivery Method Room Air Weight: 72.4 kg Body Mass Index (BMI) 23.1 Intake and Output for Last 24 Hours 10/20/17 10/21/17 10/22/17 23:59 23:59 23:59 Intake Total 1450 / 1450 4526 / 4526 1773 / 1773 Balance 1450 / 1450 4526 / 4526 1773 / 1773 Microbiology Past 72 Hours 10/20/17 13:55 Mucosa - Nasopharyngeal Respiratory Panel (PCR) - Final Laboratory Results 10/21/17 05:52: Iron 41 L, TIBC 300, Iron Saturation 13.7 L, Folate 8.90 10/21/17 09:15: Troponin I 20.60 H* 10/21/17 10:40: MRSA (PCR) POSITIVE H 10/21/17 11:15: PT 16.2 H, INR 1.4, APTT 37.3 H 10/21/17 11:28: POC Glucose 179 H 10/21/17 12:50: Troponin I 27.40 H* 10/21/17 12:50: WBC 10.2, RBC 2.25 L, Hgb 6.6 L, Hct 20.5 L, MCV 91.1, MCH 29.3 , MCHC 32.2, RDW 15.4 H, RDW Differential 47.7 H, Plt Count 337, MPV 10.3 10/21/17 12:50: Blood Type AB POSITIVE, Antibody Screen NEGATIVE, Crossmatch See Detail 10/21/17 12:50: Crossmatch See Detail 10/21/17 12:50: Immature Plt Fraction 1.4, Retic Count 5.88 H, Immature Retic Fraction 21.00 H, Retic Hgb Equivalent 30.4 10/21/17 15:10: Vitamin B12 Pending 10/21/17 16:49: POC Glucose 159 H 10/21/17 18:40: Troponin I 37.10 H* 10/21/17 18:40: Hgb 7.4 L, Hct 22.9 L 10/21/17 22:41: POC Glucose 183 H 10/21/17 23:05: Troponin I 36.50 H* 10/22/17 04:20: Hgb 8.4 L, Hct 25.2 L 10/22/17 05:00: Sodium 137, Potassium 4.1, Chloride 110 H, Carbon Dioxide 16.0 L , Anion Gap 11, BUN 31 H, Creatinine 1.50 H, Estim Creat Clear Calc 34.91, Est GFR (MDRD) Af Amer 44 L, Est GFR (MDRD) Non-Af 37 L, BUN/Creatinine Ratio 20.7 H , Glucose 204 H, Calcium 7.4 L 10/22/17 06:04: POC Glucose 194 H Current Medications Aspirin (Aspirin) 325 mg PO DAILY@0800 [facility] Last Admin: 10/21/17 08:21 Dose: 325 mg Clopidogrel Bisulfate (Plavix) 75 mg PO DAILY [facility] Last Admin: 10/21/17 08:21 Dose: 75 mg Dextrose (D50w Syringe) 0 gm IV X1 PRN; Protocol PRN Reason: Hypoglycemia Fluoxetine HCl (Prozac) 10 mg PO DAILY [facility] Last Admin: 10/21/17 08:21 Dose: 10 mg Gabapentin (Neurontin) 100 mg PO TIDCM [facility] Last Admin: 10/21/17 16:54 Dose: 100 mg Glucagon () 1 mg IM .X1 PRN PRN Reason: Hypoglycemia Heparin Sodium (Porcine) () 0 units IV UD PRN PRN Reason: Protocol Sodium Chloride () 1,000 mls @ 150 mls/hr IV .Q6H40M [facility] Last Admin: 10/22/17 05:28 Dose: 150 mls/hr Insulin Aspart (Novolog Flexpen (Bkc)) 0 units SC TIDAC [facility] PRN Reason: Protocol Last Admin: 10/21/17 16:53 Dose: 2 u Lisinopril (Zestril) 10 mg PO DAILY [facility] Last Admin: 10/21/17 08:21 Dose: 10 mg Magnesium Hydroxide (Milk Of Magnesia) 30 ml PO DAILY PRN PRN PRN Reason: Constipation Melatonin (Melatonin) 10 mg PO QHS [facility] Last Admin: 10/21/17 22:44 Dose: 10 mg Metoprolol Tartrate (Lopressor (Beta Ghassan)) 12.5 mg PO BID [facility] Last Admin: 10/21/17 22:56 Dose: 12.5 mg Nitroglycerin (Nitrostat) 0.4 mg SUBLINGUAL Q5M PRN PRN Reason: CHEST PAIN Nitroglycerin (Nitrobid) 1 inch TRANSDERM. Q8 [facility] Last Admin: 10/22/17 05:29 Dose: 1 inch Sodium Chloride () 5 - 30 ml IV UD PRN PRN Reason: SALINE FLUSH Last Admin: 10/22/17 05:28 Dose: 20 ml Tolterodine Tartrate (Detrol La) 4 mg PO DAILY [facility] Last Admin: 10/21/17 08:24 Dose: 4 mg Assessment/Plan Active and Suspected Problems Nausea & vomiting (Acute) RIK (acute kidney injury) (Acute) Dehydration (Acute) NSTEMI (non-ST elevated myocardial infarction) (Acute) Patient is a 67 year old lady with past medical history significant for for hypertension, diabetes mellitus type 2, bilateral BKA presented with intractable nausea and vomiting. Patient did develop chest pain on the morning of 10/21/17 cardiac enzymes obtained as part of her evaluation came back at 20 consistent with acute non-ST PA. Did initiate treatment per protocol consult placed to cardiology and patient transferred to the ICU 1. Acute non-ST PA: Patient started on HEATHER inhibitors as well as dual antiplatelet therapy added beta-blockers. Did not initiate statins patient states she has allergy to statins. Patient transferred from a regular nursing floor to the ICU with consultation placed to cardiology patient heparin was not initiated in view of her significant anemia. Decision for patient undergo intervention deferred to cardiology 2. Intractable nausea vomiting to be precipitated by above 3. Acute kidney injury secondary to dehydration as a result of above patient is on IV fluids with monitoring of electrolyte. Patient's kidney function improving 4. Diabetes mellitus type 2 patient oral hypoglycemic agents held, subsequently placed on 1800 ADA diet with Accu-Cheks before meals and at bedtime with sliding scale coverage 5. Hypertension-blood pressure controlled, home medications continued with dose adjustment as needed 6. Lactic acidosis secondary to use of metformin; held patient does not have any evidence of sepsis 7. Chronic kidney disease stage III secondary to diabetic nephropathy consultation was placed to nephrology 8. Peripheral vascular disease with bilateral lower extremity below-knee amputation patient is currently on dual antiplatelet therapy with aspirin and Plavix did continue 9. Anemia secondary to anemia of chronic disorder/CKD did order iron studies as well as stool guaiac. Consult was placed to Dr. Aquino with general surgery for endoscopic evaluation prior to patient being discharged. Patient did receive 2 units PRBC transfusion on 10. DVT prophylaxis; SC heparin TOTAL CC TIME 50 MINUTES CODE STATUS; full code Code Visit Inpatient E&M: 03525 Subs Hosp L3
[2017-10-22] MEDS: Gabapentin 100 MG Capsule PO ×3 (08:19→18:00)
[2017-10-22] MEDS: Aspirin 325 MG Tablet PO (08:19)
[2017-10-22 08:23] LABS: Vitamin B12 190 pg/mL (211-911)
[2017-10-22] MEDS: oxyCODONE 5 MG Tablet PO (08:32)
[2017-10-22] MEDS: FLUoxetine 10 MG Capsule PO (10:12)
[2017-10-22] MEDS: Lisinopril 10 MG Tablet PO (10:12)
[2017-10-22] MEDS: Clopidogrel Bisulfate 75 MG Tablet PO (10:12)
[2017-10-22] MEDS: Tolterodine Tartrate 4 MG CAP.SA PO (10:12)
[2017-10-22] MEDS: Metoprolol Tartrate 25 MG Tablet 12.5 MG PO (10:13)
[2017-10-22] MEDS: CHLORHEXIDINE GLUC 2% CLOTH 1 EACH TOWELETTE TOPICAL (10:17)
--- NOTE | 2017-10-22 10:30 | PCM.PN.CARD ---
Subjectve: No chest pain or shortness of breath. Received 2 units of packed red blood cells yesterday for severe anemia Objective: Vital Signs Temp Pulse Resp BP Pulse Ox 98.4 F 69 15 137/73 H 98 10/22/17 10:00 10/22/17 10:13 10/22/17 10:00 10/22/17 10:00 10/22/17 10:00 Oxygen Flow Rate 2 Oxygen Delivery Method Room Air Weight: 72.4 kg Intake and Output for Last 24 Hours 10/20/17 10/21/17 10/22/17 23:59 23:59 23:59 Intake Total 360 / [id number] 177 Balance 3606 General: - - Appears pale. Lying flat in the bed. No apparent distress HEENT: Atraumatic Oral: Moist Mucosa Neck: Supple, No JVD Lungs: Clear to auscultation Cardiovascular: Normal S1, Normal S2 Abdomen: Bowel Sounds Present, Soft - Mildly tender in epigastric region with palpation. No guarding. No rigidity Extremities: - - Bilateral below knee amputations Neurological: No Focal Motor or Sensory Deficit Psych/Mental Status: Appropriate 10/21/17 11:15: PT 16.2 H, INR 1.4, APTT 37.3 H 10/21/17 12:50: Troponin I 27.40 H* 10/21/17 12:50: WBC 10.2, RBC 2.25 L, Hgb 6.6 L, Hct 20.5 L, MCV 91.1, MCH 29.3, MCHC 32.2, RDW 15.4 H, RDW Differential 47.7 H, Plt Count 337, MPV 10.3 10/21/17 18:40: Troponin I 37.10 H* 10/21/17 18:40: Hgb 7.4 L, Hct 22.9 L 10/21/17 23:05: Troponin I 36.50 H* 10/22/17 04:20: Hgb 8.4 L, Hct 25.2 L 10/22/17 05:00: Sodium 137, Potassium 4.1, Chloride 110 H, Carbon Dioxide 16.0 L, Anion Gap 11, BUN 31 H, Creatinine 1.50 H, Est GFR (MDRD) Af Amer 44 L, Est GFR (MDRD) Non-Af 37 L, BUN/Creatinine Ratio 20.7 H, Glucose 204 H, Calcium 7.4 L Rhythm: Normal sinus ECHO: EF approximately 30% : Assessment/Plan 1. Non-ST elevation myocardial infarction. Continue current medications. No anticoagulation as patient's hemoglobin is not stable. She has received 2 units of blood and her hemoglobin only went from 6.6 to 8.4. This morning again she looks very pale. Check serial H&H. Per RN, GI has already been consulted. If further drop in hemoglobin, then may even need to consider stopping clopidogrel and/or aspirin 2. No coronary angiography for now until her severe anemia is addressed in her H&H is stable 3. Renal insufficiency. 4. Severe LV systolic dysfunction. Ischemic cardiomyopathy. Be judicious with IV fluids not to overload her. Patient is on HEATHER inhibitors. Start low-dose beta blockers clinically patient is euvolemic at present 5. Severe anemia. GI has been consulted 6. Diabetes mellitus 7. History of peripheral arterial disease status post bilateral below-knee amputations Overall prognosis is guarded
--- NOTE | 2017-10-22 10:37 | PN.CARD_ITS ---
Subjectve: No chest pain or shortness of breath. Received 2 units of packed red blood cells yesterday for severe anemia Objective: Vital Signs Temp Pulse Resp BP Pulse Ox 98.4 F 69 15 137/73 H 98 10/22/17 10:00 10/22/17 10:13 10/22/17 10:00 10/22/17 10:00 10/22/17 10:00 Oxygen Flow Rate 2 Oxygen Delivery Method Room Air Weight: 72.4 kg Intake and Output for Last 24 Hours 10/20/17 10/21/17 10/22/17 23:59 23:59 23:59 Intake Total 360 / [id number] 177 Balance 3606 General: - - Appears pale. Lying flat in the bed. No apparent distress HEENT: Atraumatic Oral: Moist Mucosa Neck: Supple, No JVD Lungs: Clear to auscultation Cardiovascular: Normal S1, Normal S2 Abdomen: Bowel Sounds Present, Soft - Mildly tender in epigastric region with palpation. No guarding. No rigidity Extremities: - - Bilateral below knee amputations Neurological: No Focal Motor or Sensory Deficit Psych/Mental Status: Appropriate 10/21/17 11:15: PT 16.2 H, INR 1.4, APTT 37.3 H 10/21/17 12:50: Troponin I 27.40 H* 10/21/17 12:50: WBC 10.2, RBC 2.25 L, Hgb 6.6 L, Hct 20.5 L, MCV 91.1, MCH 29.3 , MCHC 32.2, RDW 15.4 H, RDW Differential 47.7 H, Plt Count 337, MPV 10.3 10/21/17 18:40: Troponin I 37.10 H* 10/21/17 18:40: Hgb 7.4 L, Hct 22.9 L 10/21/17 23:05: Troponin I 36.50 H* 10/22/17 04:20: Hgb 8.4 L, Hct 25.2 L 10/22/17 05:00: Sodium 137, Potassium 4.1, Chloride 110 H, Carbon Dioxide 16.0 L , Anion Gap 11, BUN 31 H, Creatinine 1.50 H, Est GFR (MDRD) Af Amer 44 L, Est GFR (MDRD) Non-Af 37 L, BUN/Creatinine Ratio 20.7 H, Glucose 204 H, Calcium 7.4 L Rhythm: Normal sinus ECHO: EF approximately 30% : Assessment/Plan 1. Non-ST elevation myocardial infarction. Continue current medications. No anticoagulation as patient's hemoglobin is not stable. She has received 2 units of blood and her hemoglobin only went from 6.6 to 8.4. This morning again she looks very pale. Check serial H&H. Per RN, GI has already been consulted. If further drop in hemoglobin, then may even need to consider stopping clopidogrel and/or aspirin 2. No coronary angiography for now until her severe anemia is addressed in her H&H is stable 3. Renal insufficiency. 4. Severe LV systolic dysfunction. Ischemic cardiomyopathy. Be judicious with IV fluids not to overload her. Patient is on HEATHER inhibitors. Start low- dose beta blockers clinically patient is euvolemic at present 5. Severe anemia. GI has been consulted 6. Diabetes mellitus 7. History of peripheral arterial disease status post bilateral below-knee amputations Overall prognosis is guarded
--- NOTE | 2017-10-22 11:13 | PCM.CONS.R ---
Problem List (1) Acute kidney injury superimposed on chronic kidney disease Status: Acute Consultation - Renal PCP/ Referring MD: Requesting physician: [] Primary care physician: Jarret Clark - History of Present Illness History of Present Illness: The patient is a 67 year old F past medical history of hypertension , diabetes for 20 years , chronic kidney disease from diabetic nephropathy , below knee amputation bilaterally , peripheral vascular disease , osteoarthritis presented to the hospital on October 21 for intractable nausea and vomiting . Initially the patient was thought to have gastritis . Then troponin came back elevated at 20 . EKG shows no ST elevation . Patient was transferred to ICU for further care . Patient was found to creatinine elevation at 1.8 mg/dL presentation. A care was contributed to dehydration from the nausea vomiting and was started on fluid normal saline 1 50 cc/h. creatinine improved to 1.39 yesterday creatinine today is 1.5 mg/dL.. Patient still in IV fluid at the same rate. Patient also was found to have anemia at presentation 7.3 . Hemoglobin dropped to 6.6 . Cardiology was consulted for non-ST MS inpatient management . Patient was not started on heparin due to anemia . Cardiac cath was not done due to kidney acute kidney injury . Echocardiogram showed severe left ventricular dysfunction Patient is currently in the ICU . Hemodynamically stable . She said she is tolerating liquid intake but she does not have any appetite to have solid food . No chest pain . Her breathing is okay [ By reviewing her medication at home, patient was taken meloxicam for hip pain. Also the patient was on enalapril 10 mg p.o. daily which she was kept on for left ventricular dysfunction and MS ROS: 12 systems review is negative except what mentioned in HPI] - Allergies Allergies: Allergies allopurinol Allergy (Verified 10/20/17 06:16) Unknown bacitracin Allergy (Verified 10/20/17 06:16) Unknown gemfibrozil [Gemfibrozil] Allergy (Verified 10/20/17 06:16) Unknown gentamicin [Gentamicin] Allergy (Verified 10/20/17 06:16) Unknown Penicillins Allergy (Verified 10/20/17 06:16) Unknown pentoxifylline Allergy (Verified 10/20/17 06:16) Unknown pioglitazone Allergy (Verified 10/20/17 06:16) Unknown pioglitazone HCl [From Actos] Allergy (Verified 10/20/17 06:16) Unknown tramadol HCl [From Ultram] Allergy (Verified 10/20/17 06:16) Unknown simvastatin Adverse Reaction (Verified 10/20/17 06:16) Pain in joints - Current Medications Current Medications: Current Medications Aspirin (Aspirin) 325 mg PO DAILY@0800 [facility] Last Admin: 10/22/17 08:19 Dose: 325 mg Chlorhexidine Gluconate () 1 each TOPICAL DAILY [facility] Last Admin: 10/22/17 10:17 Dose: 1 each Clopidogrel Bisulfate (Plavix) 75 mg PO DAILY [facility] Last Admin: 10/22/17 10:12 Dose: 75 mg Dextrose (D50w Syringe) 0 gm IV X1 PRN; Protocol PRN Reason: Hypoglycemia Fluoxetine HCl (Prozac) 10 mg PO DAILY [facility] Last Admin: 10/22/17 10:12 Dose: 10 mg Gabapentin (Neurontin) 100 mg PO TIDCM [facility] Last Admin: 10/22/17 08:19 Dose: 100 mg Glucagon () 1 mg IM .X1 PRN PRN Reason: Hypoglycemia Heparin Sodium (Porcine) () 0 units IV UD PRN PRN Reason: Protocol Insulin Aspart (Novolog Flexpen (Bkc)) 0 units SC TIDAC [facility] PRN Reason: Protocol Last Admin: 10/22/17 08:18 Dose: 2 u Lisinopril (Zestril) 10 mg PO DAILY [facility] Last Admin: 10/22/17 10:12 Dose: 10 mg Magnesium Hydroxide (Milk Of Magnesia) 30 ml PO DAILY PRN PRN PRN Reason: Constipation Melatonin (Melatonin) 10 mg PO QHS [facility] Last Admin: 10/21/17 22:44 Dose: 10 mg Metoprolol Tartrate (Lopressor (Beta Ghassan)) 12.5 mg PO BID [facility] Last Admin: 10/22/17 10:13 Dose: 12.5 mg Nitroglycerin (Nitrostat) 0.4 mg SUBLINGUAL Q5M PRN PRN Reason: CHEST PAIN Nitroglycerin (Nitrobid) 1 inch TRANSDERM. Q8 [facility] Last Admin: 10/22/17 05:29 Dose: 1 inch Oxycodone HCl (Oxyir) 5 mg PO Q4H PRN PRN PRN Reason: PAIN Last Admin: 10/22/17 08:32 Dose: 5 mg Sodium Chloride () 5 - 30 ml IV UD PRN PRN Reason: SALINE FLUSH Last Admin: 10/22/17 05:28 Dose: 20 ml Tolterodine Tartrate (Detrol La) 4 mg PO DAILY [facility] Last Admin: 10/22/17 10:12 Dose: 4 mg - Past Medical History Past Medical History (Chronic Problems): Chronic Problems DM2 (diabetes mellitus, type 2) (Chronic) Essential (primary) hypertension (Chronic) - Past Surgical History Surgical History: - - Bilateral BKA - Social History Smoking Status: Former smoker - Family History Maternal History Items: No pertinent history Patient Problems: Active and Suspected Problems Nausea & vomiting (Acute) RIK (acute kidney injury) (Acute) Dehydration (Acute) NSTEMI (non-ST elevated myocardial infarction) (Acute) Acute kidney injury superimposed on chronic kidney disease (Acute) - Physical Exam General: Alert, Oriented x3 HEENT: Atraumatic Oral: Moist Mucosa Neck: Supple, No JVD Lungs: Clear to auscultation, Normal air movement, No rhonchi, No wheeze Cardiovascular: Regular rate, Regular Rhythm, Normal S2 Abdomen: Bowel Sounds Present, Soft, Non Tender, Non-Distended Extremities: - - Below knee amputation laterally Skin: No rashes Musculoskeletal: No Tenderness to Palpation of Joints or Extremities Lymphatic: No Cervical, Supraclavicular, or Inguinal Adenopathy Neurological: Cranial nerves II-XII grossly intact, Neuro grossly intact Psych/Mental Status: Normal Affect Vital Signs Temp Pulse Resp BP Pulse Ox 98.4 F 65 17 122/62 H 100 10/22/17 10:00 10/22/17 11:00 10/22/17 11:00 10/22/17 11:00 10/22/17 11:00 Oxygen Flow Rate 2 Oxygen Delivery Method Room Air Weight: 72.4 kg Intake and Output for Last 24 Hours 10/20/17 10/21/17 10/22/17 23:59 23:59 23:59 Intake Total 1747 / 4526 1773 / 1773 Balance 3607 / 4526 1773 / 177 Laboratory Tests Past 24 Hrs 10/21/17 10/21/17 10/21/17 10:40 11:15 12:50 WBC RBC Hgb Hct MCV MCH MCHC RDW RDW Differential Plt Count MPV Immature Plt Fraction Retic Count Immature Retic Fraction Retic Hgb Equivalent PT 16.2 H INR 1.4 APTT 37.3 H Sodium Potassium Chloride Carbon Dioxide Anion Gap BUN Creatinine Estim Creat Clear Calc Est GFR (MDRD) Af Amer Est GFR (MDRD) Non-Af BUN/Creatinine Ratio Glucose Calcium Troponin I 27.40 H* Vitamin B12 MRSA (PCR) POSITIVE H Blood Type Antibody Screen Crossmatch 10/21/17 10/21/17 10/21/17 12:50 12:50 12:50 WBC 10.2 RBC 2.25 L Hgb 6.6 L Hct 20.5 L MCV 91.1 MCH 29.3 MCHC 32.2 RDW 15.4 H RDW Differential 47.7 H Plt Count 337 MPV 10.3 Immature Plt Fraction Retic Count Immature Retic Fraction Retic Hgb Equivalent PT INR APTT Sodium Potassium Chloride Carbon Dioxide Anion Gap BUN Creatinine Estim Creat Clear Calc Est GFR (MDRD) Af Amer Est GFR (MDRD) Non-Af BUN/Creatinine Ratio Glucose Calcium Troponin I Vitamin B12 MRSA (PCR) Blood Type AB POSITIVE Antibody Screen NEGATIVE Crossmatch See Detail See Detail 10/21/17 10/21/17 10/21/17 12:50 15:10 18:40 WBC RBC Hgb Hct MCV MCH MCHC RDW RDW Differential Plt Count MPV Immature Plt Fraction 1.4 Retic Count 5.88 H Immature Retic Fraction 21.00 H Retic Hgb Equivalent 30.4 PT INR APTT Sodium Potassium Chloride Carbon Dioxide Anion Gap BUN Creatinine Estim Creat Clear Calc Est GFR (MDRD) Af Amer Est GFR (MDRD) Non-Af BUN/Creatinine Ratio Glucose Calcium Troponin I 37.10 H* Vitamin B12 190 L MRSA (PCR) Blood Type Antibody Screen Crossmatch 10/21/17 10/21/17 10/22/17 18:40 23:05 04:20 WBC RBC Hgb 7.4 L 8.4 L Hct 22.9 L 25.2 L MCV MCH MCHC RDW RDW Differential Plt Count MPV Immature Plt Fraction Retic Count Immature Retic Fraction Retic Hgb Equivalent PT INR APTT Sodium Potassium Chloride Carbon Dioxide Anion Gap BUN Creatinine Estim Creat Clear Calc Est GFR (MDRD) Af Amer Est GFR (MDRD) Non-Af BUN/Creatinine Ratio Glucose Calcium Troponin I 36.50 H* Vitamin B12 MRSA (PCR) Blood Type Antibody Screen Crossmatch 10/22/17 05:00 WBC RBC Hgb Hct MCV MCH MCHC RDW RDW Differential Plt Count MPV Immature Plt Fraction Retic Count Immature Retic Fraction Retic Hgb Equivalent PT INR APTT Sodium 137 Potassium 4.1 Chloride 110 H Carbon Dioxide 16.0 L Anion Gap 11 BUN 31 H Creatinine 1.50 H Estim Creat Clear Calc 34.91 Est GFR (MDRD) Af Amer 44 L Est GFR (MDRD) Non-Af 37 L BUN/Creatinine Ratio 20.7 H Glucose 204 H Calcium 7.4 L Troponin I Vitamin B12 MRSA (PCR) Blood Type Antibody Screen Crossmatch POC Glucose 10/22/17 10/21/17 10/21/17 06:04 22:41 16:49 POC Glucose 194 H 183 H 159 H 10/21/17 11:28 POC Glucose 179 H Assessment/Plan Active and Suspected Problems Nausea & vomiting (Acute) RIK (acute kidney injury) (Acute) Dehydration (Acute) NSTEMI (non-ST elevated myocardial infarction) (Acute) Acute kidney injury superimposed on chronic kidney disease (Acute) 1-acute kidney injury on chronic kidney disease. Unknown baseline. Patient seems has diabetic nephropathy with proteinuria. Patient presented with a creatinine 1.8 and improved with IV fluid to 1.39 yesterday. Acute kidney injury is most probably prerenal from dehydration in addition to HEATHER inhibitor and meloxicam . Now on IV fluid 1 50 cc/h. echocardiogram shows severe left ventricular dysfunction. Creatinine is slightly up today at 1.5. I will DC the IV fluid since creatinine went up today from yesterday and to avoid CHF exacerbation. Okay to continue enalapril. If kidney function continues to worsen, enalapril dose may be decreased or discontinued No need for replacement therapy. No need for further workup for acute kidney injury at this point I will continue to monitor kidney function along with a accurate input and output documentation. Keep mean arterial pressure more than 65. Okay to pursue cardiac cath if indicated by cardiology service. I explained to the patient that her kidney function might worsen with IV contrast exposure and she might end up needing dialysis. She did verbalize understanding. 2-hypertension. Blood pressure is well controlled. Patient on Enalapril 10 mg p.o. daily. 4-high anion gap metabolic acidosis. Most probably related to acute kidney injury and metformin use. Improving. No need for sodium bicarb was replacement 5-anemia. Rule out GI bleed. Status post 2 RBCs unit transfusion. I will defer the management to the primary service/GI team 6-non-ST MS elevation. Cardiology is following. Not on heparin drip due to anemia. 7-diabetes. Glucose management as per the primary service. Thank you for the consult. We will continue to follow. Yon Browning MD
--- NOTE | 2017-10-22 11:26 | CON.PCM_ITS ---
Problem List (1) Acute kidney injury superimposed on chronic kidney disease Status: Acute Consultation - Renal PCP/ Referring MD: Requesting physician: [] Primary care physician: Jarret Clark - History of Present Illness History of Present Illness: The patient is a 67 year old F past medical history of hypertension , diabetes for 20 years , chronic kidney disease from diabetic nephropathy , below knee amputation bilaterally , peripheral vascular disease , osteoarthritis presented to the hospital on October 21 for intractable nausea and vomiting . Initially the patient was thought to have gastritis . Then troponin came back elevated at 20 . EKG shows no ST elevation . Patient was transferred to ICU for further care . Patient was found to creatinine elevation at 1.8 mg/dL presentation. A care was contributed to dehydration from the nausea vomiting and was started on fluid normal saline 1 50 cc/h. creatinine improved to 1.39 yesterday creatinine today is 1.5 mg/dL.. Patient still in IV fluid at the same rate. Patient also was found to have anemia at presentation 7.3 . Hemoglobin dropped to 6.6 . Cardiology was consulted for non-ST PR inpatient management . Patient was not started on heparin due to anemia . Cardiac cath was not done due to kidney acute kidney injury . Echocardiogram showed severe left ventricular dysfunction Patient is currently in the ICU . Hemodynamically stable . She said she is tolerating liquid intake but she does not have any appetite to have solid food . No chest pain . Her breathing is okay [ By reviewing her medication at home, patient was taken meloxicam for hip pain. Also the patient was on enalapril 10 mg p.o. daily which she was kept on for left ventricular dysfunction and PR ROS: 12 systems review is negative except what mentioned in HPI] - Allergies Allergies: Allergies allopurinol Allergy (Verified 10/20/17 06:16) Unknown bacitracin Allergy (Verified 10/20/17 06:16) Unknown gemfibrozil [Gemfibrozil] Allergy (Verified 10/20/17 06:16) Unknown gentamicin [Gentamicin] Allergy (Verified 10/20/17 06:16) Unknown Penicillins Allergy (Verified 10/20/17 06:16) Unknown pentoxifylline Allergy (Verified 10/20/17 06:16) Unknown pioglitazone Allergy (Verified 10/20/17 06:16) Unknown pioglitazone HCl [From Actos] Allergy (Verified 10/20/17 06:16) Unknown tramadol HCl [From Ultram] Allergy (Verified 10/20/17 06:16) Unknown simvastatin Adverse Reaction (Verified 10/20/17 06:16) Pain in joints - Current Medications Current Medications: Current Medications Aspirin (Aspirin) 325 mg PO DAILY@0800 [facility] Last Admin: 10/22/17 08:19 Dose: 325 mg Chlorhexidine Gluconate () 1 each TOPICAL DAILY [facility] Last Admin: 10/22/17 10:17 Dose: 1 each Clopidogrel Bisulfate (Plavix) 75 mg PO DAILY [facility] Last Admin: 10/22/17 10:12 Dose: 75 mg Dextrose (D50w Syringe) 0 gm IV X1 PRN; Protocol PRN Reason: Hypoglycemia Fluoxetine HCl (Prozac) 10 mg PO DAILY [facility] Last Admin: 10/22/17 10:12 Dose: 10 mg Gabapentin (Neurontin) 100 mg PO TIDCM [facility] Last Admin: 10/22/17 08:19 Dose: 100 mg Glucagon () 1 mg IM .X1 PRN PRN Reason: Hypoglycemia Heparin Sodium (Porcine) () 0 units IV UD PRN PRN Reason: Protocol Insulin Aspart (Novolog Flexpen (Bkc)) 0 units SC TIDAC [facility] PRN Reason: Protocol Last Admin: 10/22/17 08:18 Dose: 2 u Lisinopril (Zestril) 10 mg PO DAILY [facility] Last Admin: 10/22/17 10:12 Dose: 10 mg Magnesium Hydroxide (Milk Of Magnesia) 30 ml PO DAILY PRN PRN PRN Reason: Constipation Melatonin (Melatonin) 10 mg PO QHS [facility] Last Admin: 10/21/17 22:44 Dose: 10 mg Metoprolol Tartrate (Lopressor (Beta Ghassan)) 12.5 mg PO BID [facility] Last Admin: 10/22/17 10:13 Dose: 12.5 mg Nitroglycerin (Nitrostat) 0.4 mg SUBLINGUAL Q5M PRN PRN Reason: CHEST PAIN Nitroglycerin (Nitrobid) 1 inch TRANSDERM. Q8 [facility] Last Admin: 10/22/17 05:29 Dose: 1 inch Oxycodone HCl (Oxyir) 5 mg PO Q4H PRN PRN PRN Reason: PAIN Last Admin: 10/22/17 08:32 Dose: 5 mg Sodium Chloride () 5 - 30 ml IV UD PRN PRN Reason: SALINE FLUSH Last Admin: 10/22/17 05:28 Dose: 20 ml Tolterodine Tartrate (Detrol La) 4 mg PO DAILY [facility] Last Admin: 10/22/17 10:12 Dose: 4 mg - Past Medical History Past Medical History (Chronic Problems): Chronic Problems DM2 (diabetes mellitus, type 2) (Chronic) Essential (primary) hypertension (Chronic) - Past Surgical History Surgical History: - - Bilateral BKA - Social History Smoking Status: Former smoker - Family History Maternal History Items: No pertinent history Patient Problems: Active and Suspected Problems Nausea & vomiting (Acute) RIK (acute kidney injury) (Acute) Dehydration (Acute) NSTEMI (non-ST elevated myocardial infarction) (Acute) Acute kidney injury superimposed on chronic kidney disease (Acute) - Physical Exam General: Alert, Oriented x3 HEENT: Atraumatic Oral: Moist Mucosa Neck: Supple, No JVD Lungs: Clear to auscultation, Normal air movement, No rhonchi, No wheeze Cardiovascular: Regular rate, Regular Rhythm, Normal S2 Abdomen: Bowel Sounds Present, Soft, Non Tender, Non-Distended Extremities: - - Below knee amputation laterally Skin: No rashes Musculoskeletal: No Tenderness to Palpation of Joints or Extremities Lymphatic: No Cervical, Supraclavicular, or Inguinal Adenopathy Neurological: Cranial nerves II-XII grossly intact, Neuro grossly intact Psych/Mental Status: Normal Affect Vital Signs Temp Pulse Resp BP Pulse Ox 98.4 F 65 17 122/62 H 100 10/22/17 10:00 10/22/17 11:00 10/22/17 11:00 10/22/17 11:00 10/22/17 11:00 Oxygen Flow Rate 2 Oxygen Delivery Method Room Air Weight: 72.4 kg Intake and Output for Last 24 Hours 10/20/17 10/21/17 10/22/17 23:59 23:59 23:59 Intake Total 6427 / 4526 1773 / 1773 Balance 3607 / 4526 1773 / 177 Laboratory Tests Past 24 Hrs 10/21/17 10/21/17 10/21/17 10:40 11:15 12:50 WBC RBC Hgb Hct MCV MCH MCHC RDW RDW Differential Plt Count MPV Immature Plt Fraction Retic Count Immature Retic Fraction Retic Hgb Equivalent PT 16.2 H INR 1.4 APTT 37.3 H Sodium Potassium Chloride Carbon Dioxide Anion Gap BUN Creatinine Estim Creat Clear Calc Est GFR (MDRD) Af Amer Est GFR (MDRD) Non-Af BUN/Creatinine Ratio Glucose Calcium Troponin I 27.40 H* Vitamin B12 MRSA (PCR) POSITIVE H Blood Type Antibody Screen Crossmatch 10/21/17 10/21/17 10/21/17 12:50 12:50 12:50 WBC 10.2 RBC 2.25 L Hgb 6.6 L Hct 20.5 L MCV 91.1 MCH 29.3 MCHC 32.2 RDW 15.4 H RDW Differential 47.7 H Plt Count 337 MPV 10.3 Immature Plt Fraction Retic Count Immature Retic Fraction Retic Hgb Equivalent PT INR APTT Sodium Potassium Chloride Carbon Dioxide Anion Gap BUN Creatinine Estim Creat Clear Calc Est GFR (MDRD) Af Amer Est GFR (MDRD) Non-Af BUN/Creatinine Ratio Glucose Calcium Troponin I Vitamin B12 MRSA (PCR) Blood Type AB POSITIVE Antibody Screen NEGATIVE Crossmatch See Detail See Detail 10/21/17 10/21/17 10/21/17 12:50 15:10 18:40 WBC RBC Hgb Hct MCV MCH MCHC RDW RDW Differential Plt Count MPV Immature Plt Fraction 1.4 Retic Count 5.88 H Immature Retic Fraction 21.00 H Retic Hgb Equivalent 30.4 PT INR APTT Sodium Potassium Chloride Carbon Dioxide Anion Gap BUN Creatinine Estim Creat Clear Calc Est GFR (MDRD) Af Amer Est GFR (MDRD) Non-Af BUN/Creatinine Ratio Glucose Calcium Troponin I 37.10 H* Vitamin B12 190 L MRSA (PCR) Blood Type Antibody Screen Crossmatch 10/21/17 10/21/17 10/22/17 18:40 23:05 04:20 WBC RBC Hgb 7.4 L 8.4 L Hct 22.9 L 25.2 L MCV MCH MCHC RDW RDW Differential Plt Count MPV Immature Plt Fraction Retic Count Immature Retic Fraction Retic Hgb Equivalent PT INR APTT Sodium Potassium Chloride Carbon Dioxide Anion Gap BUN Creatinine Estim Creat Clear Calc Est GFR (MDRD) Af Amer Est GFR (MDRD) Non-Af BUN/Creatinine Ratio Glucose Calcium Troponin I 36.50 H* Vitamin B12 MRSA (PCR) Blood Type Antibody Screen Crossmatch 10/22/17 05:00 WBC RBC Hgb Hct MCV MCH MCHC RDW RDW Differential Plt Count MPV Immature Plt Fraction Retic Count Immature Retic Fraction Retic Hgb Equivalent PT INR APTT Sodium 137 Potassium 4.1 Chloride 110 H Carbon Dioxide 16.0 L Anion Gap 11 BUN 31 H Creatinine 1.50 H Estim Creat Clear Calc 34.91 Est GFR (MDRD) Af Amer 44 L Est GFR (MDRD) Non-Af 37 L BUN/Creatinine Ratio 20.7 H Glucose 204 H Calcium 7.4 L Troponin I Vitamin B12 MRSA (PCR) Blood Type Antibody Screen Crossmatch POC Glucose 10/22/17 10/21/17 10/21/17 06:04 22:41 16:49 POC Glucose 194 H 183 H 159 H 10/21/17 11:28 POC Glucose 179 H Assessment/Plan Active and Suspected Problems Nausea & vomiting (Acute) RIK (acute kidney injury) (Acute) Dehydration (Acute) NSTEMI (non-ST elevated myocardial infarction) (Acute) Acute kidney injury superimposed on chronic kidney disease (Acute) 1-acute kidney injury on chronic kidney disease. Unknown baseline. Patient seems has diabetic nephropathy with proteinuria. Patient presented with a creatinine 1.8 and improved with IV fluid to 1.39 yesterday. Acute kidney injury is most probably prerenal from dehydration in addition to HEATHER inhibitor and meloxicam . Now on IV fluid 1 50 cc/h. echocardiogram shows severe left ventricular dysfunction. Creatinine is slightly up today at 1.5. I will DC the IV fluid since creatinine went up today from yesterday and to avoid CHF exacerbation. Okay to continue enalapril. If kidney function continues to worsen, enalapril dose may be decreased or discontinued No need for replacement therapy. No need for further workup for acute kidney injury at this point I will continue to monitor kidney function along with a accurate input and output documentation. Keep mean arterial pressure more than 65. Okay to pursue cardiac cath if indicated by cardiology service. I explained to the patient that her kidney function might worsen with IV contrast exposure and she might end up needing dialysis. She did verbalize understanding. 2-hypertension. Blood pressure is well controlled. Patient on Enalapril 10 mg p.o. daily. 4-high anion gap metabolic acidosis. Most probably related to acute kidney injury and metformin use. Improving. No need for sodium bicarb was replacement 5-anemia. Rule out GI bleed. Status post 2 RBCs unit transfusion. I will defer the management to the primary service/GI team 6-non-ST PR elevation. Cardiology is following. Not on heparin drip due to anemia. 7-diabetes. Glucose management as per the primary service. Thank you for the consult. We will continue to follow. Yon Browning MD
[2017-10-22] MEDS: oxyCODONE 5 MG Tablet 10 MG PO ×2 (11:54→21:41)
[2017-10-22] MEDS: Cyanocobalamin 500 MCG Tablet 1000 MCG PO (12:03)
[2017-10-22 12:06] LABS: Bedside Glucose 182 mg/dL (70-110)
--- NOTE | 2017-10-22 12:51 | CASEMGMT ---
See RN CM assessment Link. DC Plan: home on discharge. Pt lives independently in own apartment. Utilizes wheelchair around apartment. Denies needs at this time. Pt states she does not need assistance and is able to manage at home.Sydni REID BSN ACM
[2017-10-22 13:03] LABS: Hematocrit 23.6 % (37-47)
[2017-10-22 17:17] LABS: Bedside Glucose 159 mg/dL (70-110)
--- NOTE | 2017-10-22 18:19 | CON.PCM_ITS ---
Reason for Consult Date of Consultation: 10/22/17 History of Present Illness: The patient is a 67 year old F admitted with an NSTEMI. She is anemic. on admission she was found hemoglobin of 7.0, which dropped to 6.6. She was transfused 2 units of packed red cells. Her hemoglobin increased to 8.4 and his symptoms slightly decreased to 8.0. Given her recent myocardial infarction , course of action would include anticoagulation. There is concern if she may have peptic ulcer disease. I am asked to perform upper endoscopy to assess for risk of GI bleeding on anticoagulation. The patient has a long-standing history of diabetes and severe peripheral vascular disease. she has had multiple vascular interventions including occlusion of her lower extremity arterial. The patient has had a lateral below- knee amputations. The patient denies abdominal pain. She denies black tarry stools or other difficulties. Hemoccult cards of her stool have been ordered, but the patient has not had a bowel movement since admission. She had unremarkable. Upper and lower endoscopy performed by Dr. Sanchez in 2004. There is also a note of upper endoscopy performed in 2010. Past Medical History Past Medical History (Chronic Problems): Chronic Problems DM2 (diabetes mellitus, type 2) (Chronic) Essential (primary) hypertension (Chronic) Allergies allopurinol Allergy (Verified 10/20/17 06:16) Unknown bacitracin Allergy (Verified 10/20/17 06:16) Unknown gemfibrozil [Gemfibrozil] Allergy (Verified 10/20/17 06:16) Unknown gentamicin [Gentamicin] Allergy (Verified 10/20/17 06:16) Unknown Penicillins Allergy (Verified 10/20/17 06:16) Unknown pentoxifylline Allergy (Verified 10/20/17 06:16) Unknown pioglitazone Allergy (Verified 10/20/17 06:16) Unknown pioglitazone HCl [From Actos] Allergy (Verified 10/20/17 06:16) Unknown tramadol HCl [From Ultram] Allergy (Verified 10/20/17 06:16) Unknown simvastatin Adverse Reaction (Verified 10/20/17 06:16) Pain in joints Home Medications: Ambulatory Orders Medication Instructions Recorded Enalapril Maleate [Vasotec] 10 mg PO DAILY 07/03/13 Gabapentin [Neurontin] 600 mg PO DAILY 07/03/13 Aspirin 325 mg PO DAILY@0800 07/18/13 Clopidogrel Bisulfate [Plavix] 75 mg PO DAILY 07/18/13 Fluoxetine [Prozac] 10 mg PO DAILY 02/08/14 Meloxicam [Meloxicam] 15 mg PO DAILY 10/20/17 Metformin HCl [Glucophage] 500 mg PO BID 10/20/17 Oxybutynin Chloride [Ditropan Xl] 15 mg PO DAILY 10/20/17 Surgical History: - - Bilateral BKA, previous endovascular interventions for severe peripheral vascular disease Lives: Alone Smoking Status: Former smoker - *Family History Maternal History Items: No pertinent history Review of Systems Constitutional: Denies: Chills, Fever, Weight Change HEENT: Denies: Head Aches, Sinus Congestion, Sinus Drainage Cardiovascular: Denies: Chest Pain, Palpitations Respiratory: Denies: Cough, Shortness of breath at rest, Sputum production Gastrointestinal: Denies: Abdominal Pain, Nausea, Vomiting Genitourinary: Denies: Dysuria Musculoskeletal: Denies: Joint Pain, Joint Tenderness Skin: Denies: Rash, Wounds Neurological: Denies: Numbness, Tingling, Focal weakness Psychiatric: Denies: Anxiety, Depression, Homicidal Ideations, Suicidal Ideations Hematologic/ Lymphatic: Denies: Easy Bruising, Easy Bleeding Patient Problems: Active and Suspected Problems Nausea & vomiting (Acute) RIK (acute kidney injury) (Acute) Dehydration (Acute) NSTEMI (non-ST elevated myocardial infarction) (Acute) Acute kidney injury superimposed on chronic kidney disease (Acute) - Physical Exam General: Alert, Oriented x3 Lungs: Clear to auscultation, Normal air movement Cardiovascular: Regular rate, Regular Rhythm Abdomen: Bowel Sounds Present, Soft, Non Tender Extremities: - - bilateral lower extremity below-knee amputations Vital Signs Temp Pulse Resp BP Pulse Ox 98.6 F 54 L 10 L 130/66 H 96 10/22/17 12:00 10/22/17 15:00 10/22/17 15:00 10/22/17 15:00 10/22/17 15:00 Oxygen Flow Rate 2 Oxygen Delivery Method Room Air Weight: 72.4 kg Intake and Output for Last 24 Hours 10/20/17 10/21/17 10/22/17 23:59 23:59 23:59 Intake Total 2739 / 8771 2968 / 2968 Balance 3607 / 4583 2968 / 2968 Laboratory Tests Past 24 Hrs 10/21/17 10/21/17 10/21/17 12:50 12:50 15:10 Hgb Hct Sodium Potassium Chloride Carbon Dioxide Anion Gap BUN Creatinine Estim Creat Clear Calc Est GFR (MDRD) Af Amer Est GFR (MDRD) Non-Af BUN/Creatinine Ratio Glucose Calcium Troponin I Vitamin B12 190 L Crossmatch See Detail See Detail 10/21/17 10/21/17 10/21/17 18:40 18:40 23:05 Hgb 7.4 L Hct 22.9 L Sodium Potassium Chloride Carbon Dioxide Anion Gap BUN Creatinine Estim Creat Clear Calc Est GFR (MDRD) Af Amer Est GFR (MDRD) Non-Af BUN/Creatinine Ratio Glucose Calcium Troponin I 37.10 H* 36.50 H* Vitamin B12 Crossmatch 10/22/17 10/22/17 10/22/17 04:20 05:00 12:53 Hgb 8.4 L 8.0 L Hct 25.2 L 23.6 L Sodium 137 Potassium 4.1 Chloride 110 H Carbon Dioxide 16.0 L Anion Gap 11 BUN 31 H Creatinine 1.50 H Estim Creat Clear Calc 34.91 Est GFR (MDRD) Af Amer 44 L Est GFR (MDRD) Non-Af 37 L BUN/Creatinine Ratio 20.7 H Glucose 204 H Calcium 7.4 L Troponin I Vitamin B12 Crossmatch POC Glucose 10/22/17 10/22/17 10/22/17 17:09 11:56 06:04 POC Glucose 159 H 182 H 194 H 10/21/17 22:41 POC Glucose 183 H Assessment/Plan Active and Suspected Problems Nausea & vomiting (Acute) RIK (acute kidney injury) (Acute) Dehydration (Acute) NSTEMI (non-ST elevated myocardial infarction) (Acute) Acute kidney injury superimposed on chronic kidney disease (Acute) anemia-rule out GI bleed Patient's hemoglobin has responded appropriately to transfusion. She is not having bowel movements, which decreases the chance of significant ongoing bleeding. We will ask for Hemoccult of stool. We'll plan for upper endoscopy. I discussed with the patient the risks, benefits and possible complications endoscopy and the patient consents to planned procedure. Given the fact that she has a recent myocardial infarction. Her risks for sedation are increased, but I feel this is necessary given the patient's optimal plan of action to include anticoagulants. We will plan for anesthesia sedation with endoscopy on Wednesday. If the patient's hemoglobin dropped substantially or there are signs of active bleeding, will perform endoscopy emergently.
[2017-10-22] MEDS: MELATONIN 10 MG TABLET PO (21:39)
[2017-10-22 22:36] LABS: Bedside Glucose 196 mg/dL (70-110)
[2017-10-23] VITALS (34 sets, daily range): BP systolic 74–137; BP diastolic 42–91; PULSE 51–87; RESP 8–20; TEMP 36.6–36.8; O2SAT 92–100
[2017-10-23] MEDS: CHLORHEXIDINE GLUC 2% CLOTH 1 EACH TOWELETTE TOPICAL (03:30)
[2017-10-23] MEDS: oxyCODONE 5 MG Tablet 10 MG PO ×4 (03:30→21:08)
[2017-10-23] MEDS: 0.9% NaCl Peripheral Flush Adult/Peds IV ×2 (04:26→21:08)
[2017-10-23 04:35] LABS: Hematocrit 23.3 % (37-47); Hemoglobin 7.6 g/dl (12.0-15.0); Mean Corp Hgb Conc 32.6 g/gl (32-36); Mean Corpuscular Hgb 29.1 pg (27.0-32.0); Mean Corpuscular Volume 89.3 fL (81-99); Mean Platelet Vol. 10.5 fl (6.2-12.0); Platelet Count 223 K/mm3 (150-450); RBC Distribution Width CV 15.9 % (11.6-14.6); RBC Distribution Width SD 48.3 fl (35.1-43.9); Red Blood Count 2.61 M/mm3 (4.2-5.4); Scan Indicated on CBC? Y/N NO; White Blood Count 6.9 K/mm3 (4.4-11.0)
[2017-10-23 04:49] LABS: Anion Gap 13 (5-15); BUN 30 mg/dL (7-18); BUN/Creat Ratio 18.5 RATIO (10-20); Calcium,Total 7.4 mg/dL (8.5-10.1); Chloride 110 mmol/L (98-107); Creatinine, Serum 1.62 mg/dL (0.55-1.02); EST Glomerular Filtration Rate 34 mL/min (>60); Est Glom Filt Rate - Afr Amer 41 mL/min (>60); Estimated Creatinine Clearance 32.32 ml/min; Glucose 203 mg/dL (70-110); Sodium Level 140 mmol/L (136-145)
--- NOTE | 2017-10-23 07:26 | PCM.PN.HOSP ---
Patient Problems: Active and Suspected Problems Nausea & vomiting (Acute) RIK (acute kidney injury) (Acute) Dehydration (Acute) NSTEMI (non-ST elevated myocardial infarction) (Acute) Acute kidney injury superimposed on chronic kidney disease (Acute) Subjective: Patient seen still remains in ICU. Hemoglobin dropped to 7.6. Patient still complaining of chest pain and order was given for 1 additional unit of PRBC. Echo obtained on 10/21/17 demonstrated EF of 30-35% with anterior apical kinesis. Patient was also seen by Dr. Aquino plan is for patient undergo endoscopic evaluation for her significant anemia on 10/24/17 Objective: GENERAL: Appears ill looking HEENT: Clear conjunctiva, NECK; supple, normal thyroid, CHEST: Clear to auscultation bilaterally,. 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 SKIN: No rash Vitals/I&O's: Vital Signs Temp Pulse Resp BP Pulse Ox 98.1 F 59 L 11 L 105/69 100 10/23/17 00:00 10/23/17 07:00 10/23/17 07:00 10/23/17 07:00 10/23/17 07:00 Oxygen Flow Rate 2 Oxygen Delivery Method Room Air Weight: 73.8 kg Intake and Output for Last 24 Hours 10/21/17 10/22/17 10/23/17 23:59 23:59 23:59 Intake Total 3607 / 4526 3388 / 3388 60 / 60 Balance 3607 / 4526 3388 / 3388 60 / 60 Laboratory Results 10/21/17 15:10: Vitamin B12 190 L 10/22/17 11:56: POC Glucose 182 H 10/22/17 12:53: Hgb 8.0 L, Hct 23.6 L 10/22/17 17:09: POC Glucose 159 H 10/22/17 22:32: POC Glucose 196 H 10/23/17 04:20: Sodium 140, Potassium 4.0, Chloride 110 H, Carbon Dioxide 17.0 L, Anion Gap 13, BUN 30 H, Creatinine 1.62 H, Estim Creat Clear Calc 32.32, Est GFR (MDRD) Af Amer 41 L, Est GFR (MDRD) Non-Af 34 L, BUN/Creatinine Ratio 18.5, Glucose 203 H, Calcium 7.4 L 10/23/17 04:20: WBC 6.9, RBC 2.61 L, Hgb 7.6 L, Hct 23.3 L, MCV 89.3, MCH 29.1, MCHC 32.6, RDW 15.9 H, RDW Differential 48.3 H, Plt Count 223, MPV 10.5 Current Medications Aspirin (Aspirin) 325 mg PO DAILY@0800 [facility] Last Admin: 10/22/17 08:19 Dose: 325 mg Chlorhexidine Gluconate () 1 each TOPICAL DAILY [facility] Last Admin: 10/23/17 03:30 Dose: 1 each Clopidogrel Bisulfate (Plavix) 75 mg PO DAILY [facility] Last Admin: 10/22/17 10:12 Dose: 75 mg Cyanocobalamin (Vitamin B12) 1,000 mcg PO DAILY@0800 [facility] Last Admin: 10/22/17 12:03 Dose: 1,000 mcg Dextrose (D50w Syringe) 0 gm IV X1 PRN; Protocol PRN Reason: Hypoglycemia Fluoxetine HCl (Prozac) 10 mg PO DAILY [facility] Last Admin: 10/22/17 10:12 Dose: 10 mg Gabapentin (Neurontin) 100 mg PO TIDCM [facility] Last Admin: 10/22/17 18:00 Dose: 100 mg Glucagon () 1 mg IM .X1 PRN PRN Reason: Hypoglycemia Heparin Sodium (Porcine) () 0 units IV UD PRN PRN Reason: Protocol Insulin Aspart (Novolog Flexpen (Bkc)) 0 units SC TIDAC [facility] PRN Reason: Protocol Last Admin: 10/22/17 18:00 Dose: 2 u Lisinopril (Zestril) 10 mg PO DAILY [facility] Last Admin: 10/22/17 10:12 Dose: 10 mg Magnesium Hydroxide (Milk Of Magnesia) 30 ml PO DAILY PRN PRN PRN Reason: Constipation Melatonin (Melatonin) 10 mg PO QHS [facility] Last Admin: 10/22/17 21:39 Dose: 10 mg Metoprolol Tartrate (Lopressor (Beta Ghassan)) 12.5 mg PO BID [facility] Last Admin: 10/22/17 23:10 Dose: Not Given Nitroglycerin (Nitrostat) 0.4 mg SUBLINGUAL Q5M PRN PRN Reason: CHEST PAIN Nitroglycerin (Nitrobid) 1 inch TRANSDERM. Q8 [facility] Last Admin: 10/23/17 05:25 Dose: Not Given Oxycodone HCl (Oxyir) 10 mg PO Q4H PRN PRN PRN Reason: PAIN Last Admin: 10/23/17 03:30 Dose: 10 mg Sodium Chloride () 5 - 30 ml IV UD PRN PRN Reason: SALINE FLUSH Last Admin: 10/23/17 04:26 Dose: 10 ml Tolterodine Tartrate (Detrol La) 4 mg PO DAILY [facility] Last Admin: 10/22/17 10:12 Dose: 4 mg Assessment/Plan Active and Suspected Problems Nausea & vomiting (Acute) RIK (acute kidney injury) (Acute) Dehydration (Acute) NSTEMI (non-ST elevated myocardial infarction) (Acute) Acute kidney injury superimposed on chronic kidney disease (Acute) Patient is a 67 year old lady with past medical history significant for for hypertension, diabetes mellitus type 2, bilateral BKA presented with intractable nausea and vomiting. Patient did develop chest pain on the morning of 10/21/17 cardiac enzymes obtained as part of her evaluation came back at 20 consistent with acute non-ST [place]. Did initiate treatment per protocol consult placed to cardiology and patient transferred to the ICU. Patient was found to have significant anemia left heart catheterization was therefore deferred. Patient has been transfused a total of 3 units PRBC as of 10/22/17. Plan is for patient undergo endoscopic evaluation by Dr. Aquino on 10/24/16. 1. Acute non-ST [place]: Patient started on HEATHER inhibitors as well as dual antiplatelet therapy added beta-blockers. Did not initiate statins patient states she has allergy to statins. Patient transferred from a regular nursing floor to the ICU with consultation placed to cardiology patient heparin was not initiated in view of her significant anemia. I am for patient to undergo left heart catheterization deferred pending evaluation of patient's severe anemia 2. Anemia secondary to anemia of chronic disorder/CKD did order iron studies as well as stool guaiac. Consult was placed to Dr. Aquino with general surgery for endoscopic evaluation prior to patient being discharged. Patient did receive 2 units PRBC transfusion on 3. Cardiomyopathy with an ejection fraction of 30-35% suspected to be ischemic. Plan is for patient to undergo left heart catheterization sterilization of her significant anemia 4. Diabetes mellitus type 2 patient oral hypoglycemic agents held, subsequently placed on 1800 ADA diet with Accu-Cheks before meals and at bedtime with sliding scale coverage 5. Hypertension-blood pressure controlled, home medications continued with dose adjustment as needed 6. Lactic acidosis secondary to use of metformin; held patient does not have any evidence of sepsis 7. Chronic kidney disease stage III secondary to diabetic nephropathy consultation was placed to nephrology 8. Peripheral vascular disease with bilateral lower extremity below-knee amputation patient is currently on dual antiplatelet therapy with aspirin and Plavix did continue 9. Acute kidney injury secondary to dehydration as a result of above patient is on IV fluids with monitoring of electrolyte. Patient's kidney function improving 10. DVT prophylaxis; SC heparin CODE STATUS; full code Code Visit Inpatient E&M: 89838 Subs Hosp L3
--- NOTE | 2017-10-23 07:36 | PN_ITS ---
Patient Problems: Active and Suspected Problems Nausea & vomiting (Acute) RIK (acute kidney injury) (Acute) Dehydration (Acute) NSTEMI (non-ST elevated myocardial infarction) (Acute) Acute kidney injury superimposed on chronic kidney disease (Acute) Subjective: Patient seen still remains in ICU. Hemoglobin dropped to 7.6. Patient still complaining of chest pain and order was given for 1 additional unit of PRBC. Echo obtained on 10/21/17 demonstrated EF of 30-35% with anterior apical kinesis. Patient was also seen by Dr. Aquino plan is for patient undergo endoscopic evaluation for her significant anemia on 10/24/17 Objective: GENERAL: Appears ill looking HEENT: Clear conjunctiva, NECK; supple, normal thyroid, CHEST: Clear to auscultation bilaterally,. 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 SKIN: No rash Vitals/I&O's: Vital Signs Temp Pulse Resp BP Pulse Ox 98.1 F 59 L 11 L 105/69 100 10/23/17 00:00 10/23/17 07:00 10/23/17 07:00 10/23/17 07:00 10/23/17 07:00 Oxygen Flow Rate 2 Oxygen Delivery Method Room Air Weight: 73.8 kg Intake and Output for Last 24 Hours 10/21/17 10/22/17 10/23/17 23:59 23:59 23:59 Intake Total 3607 / 4526 3388 / 3388 60 / 60 Balance 3607 / 4526 3388 / 3388 60 / 60 Laboratory Results 10/21/17 15:10: Vitamin B12 190 L 10/22/17 11:56: POC Glucose 182 H 10/22/17 12:53: Hgb 8.0 L, Hct 23.6 L 10/22/17 17:09: POC Glucose 159 H 10/22/17 22:32: POC Glucose 196 H 10/23/17 04:20: Sodium 140, Potassium 4.0, Chloride 110 H, Carbon Dioxide 17.0 L , Anion Gap 13, BUN 30 H, Creatinine 1.62 H, Estim Creat Clear Calc 32.32, Est GFR (MDRD) Af Amer 41 L, Est GFR (MDRD) Non-Af 34 L, BUN/Creatinine Ratio 18.5, Glucose 203 H, Calcium 7.4 L 10/23/17 04:20: WBC 6.9, RBC 2.61 L, Hgb 7.6 L, Hct 23.3 L, MCV 89.3, MCH 29.1, MCHC 32.6, RDW 15.9 H, RDW Differential 48.3 H, Plt Count 223, MPV 10.5 Current Medications Aspirin (Aspirin) 325 mg PO DAILY@0800 [facility] Last Admin: 10/22/17 08:19 Dose: 325 mg Chlorhexidine Gluconate () 1 each TOPICAL DAILY [facility] Last Admin: 10/23/17 03:30 Dose: 1 each Clopidogrel Bisulfate (Plavix) 75 mg PO DAILY [facility] Last Admin: 10/22/17 10:12 Dose: 75 mg Cyanocobalamin (Vitamin B12) 1,000 mcg PO DAILY@0800 [facility] Last Admin: 10/22/17 12:03 Dose: 1,000 mcg Dextrose (D50w Syringe) 0 gm IV X1 PRN; Protocol PRN Reason: Hypoglycemia Fluoxetine HCl (Prozac) 10 mg PO DAILY [facility] Last Admin: 10/22/17 10:12 Dose: 10 mg Gabapentin (Neurontin) 100 mg PO TIDCM [facility] Last Admin: 10/22/17 18:00 Dose: 100 mg Glucagon () 1 mg IM .X1 PRN PRN Reason: Hypoglycemia Heparin Sodium (Porcine) () 0 units IV UD PRN PRN Reason: Protocol Insulin Aspart (Novolog Flexpen (Bkc)) 0 units SC TIDAC [facility] PRN Reason: Protocol Last Admin: 10/22/17 18:00 Dose: 2 u Lisinopril (Zestril) 10 mg PO DAILY [facility] Last Admin: 10/22/17 10:12 Dose: 10 mg Magnesium Hydroxide (Milk Of Magnesia) 30 ml PO DAILY PRN PRN PRN Reason: Constipation Melatonin (Melatonin) 10 mg PO QHS [facility] Last Admin: 10/22/17 21:39 Dose: 10 mg Metoprolol Tartrate (Lopressor (Beta Ghassan)) 12.5 mg PO BID [facility] Last Admin: 10/22/17 23:10 Dose: Not Given Nitroglycerin (Nitrostat) 0.4 mg SUBLINGUAL Q5M PRN PRN Reason: CHEST PAIN Nitroglycerin (Nitrobid) 1 inch TRANSDERM. Q8 [facility] Last Admin: 10/23/17 05:25 Dose: Not Given Oxycodone HCl (Oxyir) 10 mg PO Q4H PRN PRN PRN Reason: PAIN Last Admin: 10/23/17 03:30 Dose: 10 mg Sodium Chloride () 5 - 30 ml IV UD PRN PRN Reason: SALINE FLUSH Last Admin: 10/23/17 04:26 Dose: 10 ml Tolterodine Tartrate (Detrol La) 4 mg PO DAILY [facility] Last Admin: 10/22/17 10:12 Dose: 4 mg Assessment/Plan Active and Suspected Problems Nausea & vomiting (Acute) RIK (acute kidney injury) (Acute) Dehydration (Acute) NSTEMI (non-ST elevated myocardial infarction) (Acute) Acute kidney injury superimposed on chronic kidney disease (Acute) Patient is a 67 year old lady with past medical history significant for for hypertension, diabetes mellitus type 2, bilateral BKA presented with intractable nausea and vomiting. Patient did develop chest pain on the morning of 10/21/17 cardiac enzymes obtained as part of her evaluation came back at 20 consistent with acute non-ST [place]. Did initiate treatment per protocol consult placed to cardiology and patient transferred to the ICU. Patient was found to have significant anemia left heart catheterization was therefore deferred. Patient has been transfused a total of 3 units PRBC as of 10/22/17. Plan is for patient undergo endoscopic evaluation by Dr. Aquino on 10/24/16. 1. Acute non-ST [place]: Patient started on HEATHER inhibitors as well as dual antiplatelet therapy added beta-blockers. Did not initiate statins patient states she has allergy to statins. Patient transferred from a regular nursing floor to the ICU with consultation placed to cardiology patient heparin was not initiated in view of her significant anemia. I am for patient to undergo left heart catheterization deferred pending evaluation of patient's severe anemia 2. Anemia secondary to anemia of chronic disorder/CKD did order iron studies as well as stool guaiac. Consult was placed to Dr. Aquino with general surgery for endoscopic evaluation prior to patient being discharged. Patient did receive 2 units PRBC transfusion on 3. Cardiomyopathy with an ejection fraction of 30-35% suspected to be ischemic. Plan is for patient to undergo left heart catheterization sterilization of her significant anemia 4. Diabetes mellitus type 2 patient oral hypoglycemic agents held, subsequently placed on 1800 ADA diet with Accu-Cheks before meals and at bedtime with sliding scale coverage 5. Hypertension-blood pressure controlled, home medications continued with dose adjustment as needed 6. Lactic acidosis secondary to use of metformin; held patient does not have any evidence of sepsis 7. Chronic kidney disease stage III secondary to diabetic nephropathy consultation was placed to nephrology 8. Peripheral vascular disease with bilateral lower extremity below-knee amputation patient is currently on dual antiplatelet therapy with aspirin and Plavix did continue 9. Acute kidney injury secondary to dehydration as a result of above patient is on IV fluids with monitoring of electrolyte. Patient's kidney function improving 10. DVT prophylaxis; SC heparin CODE STATUS; full code Code Visit Inpatient E&M: [id number] Subs Hosp L3
[2017-10-23] MEDS: Aspirin 325 MG Tablet PO (08:35)
[2017-10-23] MEDS: Cyanocobalamin 500 MCG Tablet 1000 MCG PO (08:35)
[2017-10-23] MEDS: Gabapentin 100 MG Capsule PO ×3 (08:35→15:59)
[2017-10-23] MEDS: FLUoxetine 10 MG Capsule PO (10:12)
[2017-10-23] MEDS: Tolterodine Tartrate 4 MG CAP.SA PO (10:12)
[2017-10-23] MEDS: Clopidogrel Bisulfate 75 MG Tablet PO (10:13)
--- NOTE | 2017-10-23 11:49 | PCM.PN.CARD ---
Subjectve: The patient denies ongoing chest discomfort. She denies any worsening shortness of breath or dyspnea. Objective: Vital Signs Temp Pulse Resp BP Pulse Ox 98.1 F 65 11 L 92/42 L 100 10/23/17 00:00 10/23/17 10:11 10/23/17 07:00 10/23/17 10:11 10/23/17 07:00 Oxygen Flow Rate 2 Oxygen Delivery Method Room Air Weight: 162 lb 11.218 oz Intake and Output for Last 24 Hours 10/21/17 10/22/17 10/23/17 23:59 23:59 23:59 Intake Total 3607 / 4526 3388 / 3388 60 / 60 Balance 3607 / 4526 3388 / 3388 60 / 60 General: Awake, Alert, Oriented x 3, Cooperative, No Acute Distress Lungs: Diminished Rosales Bases - Minimal Cardiovascular: Regular Rhythm, Normal S1, Normal S2 Abdomen: Bowel Sounds Present, Soft, Non Tender 10/22/17 12:53: Hgb 8.0 L, Hct 23.6 L 10/23/17 04:20: Sodium 140, Potassium 4.0, Chloride 110 H, Carbon Dioxide 17.0 L, Anion Gap 13, BUN 30 H, Creatinine 1.62 H, Est GFR (MDRD) Af Amer 41 L, Est GFR (MDRD) Non-Af 34 L, BUN/Creatinine Ratio 18.5, Glucose 203 H, Calcium 7.4 L 10/23/17 04:20: WBC 6.9, RBC 2.61 L, Hgb 7.6 L, Hct 23.3 L, MCV 89.3, MCH 29.1, MCHC 32.6, RDW 15.9 H, RDW Differential 48.3 H, Plt Count 223, MPV 10.5 Rhythm: Sinus rhythm/sinus bradycardia Assessment/Plan 1. CAD/non-ST segment elevation SC At the present time the patient will continue to be monitored. She will continue medical management as tolerated. At the moment this includes her aspirin therapy and antiplatelet therapy. She has also been on nitrates, beta-blockers, and afterload reducing agents. She apparently has allergies to statins. Based upon her low heart rate in her low blood pressure her medications have had to be readjusted. Her data blockers are low dose. Her nitrates and afterload reducing agents with respect to her HEATHER inhibitors have been on hold and will be temporarily discontinued. She also remains anemic. Supplying her with PRBCs to increasing her H&H hopefully will be helpful with respect to her blood pressure as well as her oxygen carrying capacity in her cardiovascular status. 2. Cardiomyopathy: Ischemic mediated There is concerns that she has an underlying ischemic mediated cardiomyopathy based upon her objective findings. At the moment she is without acute symptoms of CHF/pulmonary edema. She will need to be monitored. Ideally she would continue medical therapy which would include agents such as beta blockers and HEATHER inhibitors. However given her medications are being adjusted, placed on hold, or discontinued secondary to a combination of her low heart rate and low blood pressure. 3. Peripheral vascular disease According to her medical record she has underlying peripheral vascular disease. Apparently this was a contributing factor to her lower extremity issues. She has continued aspirin and antiplatelet therapy. 4. Hypertension At the moment her blood pressure remains on the low side. Her medications are being adjusted to avoid additional hypotension. She is going to receive additional PRBCs which hopefully will help support her blood pressure. 5. Diabetes mellitus She will continue under the care of internal medicine for this. 6. Chronic renal insufficiency Her renal function is being followed. This does have an impact with respect to her volume status medications, etc. 7. Anemia She remains anemic. Again recommendations have been made to keep her hemoglobin and hematocrit elevated to assist with her oxygen carrying capacity her cardiovascular status. Thus she is going to receive additional PRBCs. In the interim she has been evaluated by general surgery. She is tentatively scheduled for upcoming endoscopy on 10/25/2017 to evaluate for a source of gastrointestinal bleeding. Overall, she will continue conservative cardiovascular medical management at this time. She is not an ideal candidate for additional invasive cardiovascular evaluation or care at the moment. Future invasive evaluation and/or care will depend upon her clinical course. This note was generated with [employer] software. Every effort was made to ensure accuracy, however, computerized client success manager mistakes may persist.
[2017-10-23 14:41] LABS: Bedside Glucose 161 mg/dL (70-110)
[2017-10-23 14:41] LABS: Bedside Glucose 180 mg/dL (70-110)
--- NOTE | 2017-10-23 15:24 | PCM.PN.SRG ---
Patient Problems: Active and Suspected Problems Nausea & vomiting (Acute) RIK (acute kidney injury) (Acute) Dehydration (Acute) NSTEMI (non-ST elevated myocardial infarction) (Acute) Acute kidney injury superimposed on chronic kidney disease (Acute) Subjective: no complaints - Physical Exam General: Alert, Oriented x3, Cooperative Lungs: Clear to auscultation, Normal air movement Cardiovascular: Regular rate, No murmurs Abdomen: Bowel Sounds Present, Soft, Non Tender Vital Signs Temp Pulse Resp BP Pulse Ox 98.0 F 65 12 91/61 98 10/23/17 14:00 10/23/17 15:00 10/23/17 15:00 10/23/17 15:00 10/23/17 15:00 Oxygen Flow Rate 2 Oxygen Delivery Method Room Air Weight: 73.8 kg Intake and Output for Last 24 Hours 10/21/17 10/22/17 10/23/17 23:59 23:59 23:59 Intake Total 3607 / 4526 3388 / 3388 400 / 400 Balance 3607 / 4526 3388 / 3388 400 / 400 Laboratory Tests Past 24 Hrs 10/21/17 10/21/17 10/23/17 12:50 12:50 04:20 WBC RBC Hgb Hct MCV MCH MCHC RDW RDW Differential Plt Count MPV Sodium 140 Potassium 4.0 Chloride 110 H Carbon Dioxide 17.0 L Anion Gap 13 BUN 30 H Creatinine 1.62 H Estim Creat Clear Calc 32.32 Est GFR (MDRD) Af Amer 41 L Est GFR (MDRD) Non-Af 34 L BUN/Creatinine Ratio 18.5 Glucose 203 H Calcium 7.4 L Crossmatch See Detail See Detail 10/23/17 04:20 WBC 6.9 RBC 2.61 L Hgb 7.6 L Hct 23.3 L MCV 89.3 MCH 29.1 MCHC 32.6 RDW 15.9 H RDW Differential 48.3 H Plt Count 223 MPV 10.5 Sodium Potassium Chloride Carbon Dioxide Anion Gap BUN Creatinine Estim Creat Clear Calc Est GFR (MDRD) Af Amer Est GFR (MDRD) Non-Af BUN/Creatinine Ratio Glucose Calcium Crossmatch POC Glucose 10/23/17 10/23/17 10/22/17 14:04 08:33 22:32 POC Glucose 180 H 161 H 196 H 10/22/17 17:09 POC Glucose 159 H Assessment/Plan Active and Suspected Problems Nausea & vomiting (Acute) RIK (acute kidney injury) (Acute) Dehydration (Acute) NSTEMI (non-ST elevated myocardial infarction) (Acute) Acute kidney injury superimposed on chronic kidney disease (Acute) anemia-rule out GI bleed Patient's hemoglobin has responded appropriately to transfusion. She is not having bowel movements, which decreases the chance of significant ongoing bleeding. Hemoccult of stool still pending as patient is not a bowel movement since admission. We'll plan for upper endoscopy. I discussed with the patient the risks, benefits and possible complications endoscopy and the patient consents to planned procedure. Given the fact that she has a recent myocardial infarction. Her risks for sedation are increased, but I feel this is necessary given the patient's optimal plan of action to include anticoagulants. We will plan for anesthesia sedation with endoscopy on Wednesday - discussed with Dr. Manzo today. If the patient's hemoglobin dropped substantially or there are signs of active bleeding, will perform endoscopy emergently.
[2017-10-23] MEDS: Senna Tablet 1 TABLET PO (15:59)
[2017-10-23 17:41] LABS: Bedside Glucose 165 mg/dL (70-110)
--- NOTE | 2017-10-23 19:26 | PCM.PN.REN ---
Patient Problems: Active and Suspected Problems Nausea & vomiting (Acute) RIK (acute kidney injury) (Acute) Dehydration (Acute) NSTEMI (non-ST elevated myocardial infarction) (Acute) Acute kidney injury superimposed on chronic kidney disease (Acute) Subjective: Following for RIK on CKD. Pt denies CP, SOB at rest. No nausea or increasing edema. - Physical Exam General: Alert, Oriented x3 HEENT: Atraumatic, Normocephalic Oral: Moist Mucosa Lungs: Clear to auscultation - anteriorly Cardiovascular: Normal S1, Normal S2, No murmurs Abdomen: Bowel Sounds Present, Soft, Non Tender Extremities: No clubbing, No cyanosis, No edema, - - s/p BL BKA Vital Signs Temp Pulse Resp BP Pulse Ox 97.9 F 55 L 10 L 124/72 H 99 10/23/17 16:00 10/23/17 16:00 10/23/17 16:00 10/23/17 16:00 10/23/17 16:00 Oxygen Flow Rate 2 Oxygen Delivery Method Room Air Weight: 73.8 kg Intake and Output for Last 24 Hours 10/21/17 10/22/17 10/23/17 23:59 23:59 23:59 Intake Total 3607 / 4526 3388 / 3388 1200 / 1200 Balance 3607 / 4526 3388 / 3388 1200 / 1200 Laboratory Tests Past 24 Hrs 10/21/17 10/21/17 10/23/17 12:50 12:50 04:20 WBC RBC Hgb Hct MCV MCH MCHC RDW RDW Differential Plt Count MPV Sodium 140 Potassium 4.0 Chloride 110 H Carbon Dioxide 17.0 L Anion Gap 13 BUN 30 H Creatinine 1.62 H Estim Creat Clear Calc 32.32 Est GFR (MDRD) Af Amer 41 L Est GFR (MDRD) Non-Af 34 L BUN/Creatinine Ratio 18.5 Glucose 203 H Calcium 7.4 L Crossmatch See Detail See Detail 10/23/17 04:20 WBC 6.9 RBC 2.61 L Hgb 7.6 L Hct 23.3 L MCV 89.3 MCH 29.1 MCHC 32.6 RDW 15.9 H RDW Differential 48.3 H Plt Count 223 MPV 10.5 Sodium Potassium Chloride Carbon Dioxide Anion Gap BUN Creatinine Estim Creat Clear Calc Est GFR (MDRD) Af Amer Est GFR (MDRD) Non-Af BUN/Creatinine Ratio Glucose Calcium Crossmatch POC Glucose 10/23/17 10/23/17 10/23/17 17:31 14:04 08:33 POC Glucose 165 H 180 H 161 H 10/22/17 22:32 POC Glucose 196 H Assessment/Plan Active and Suspected Problems Nausea & vomiting (Acute) RIK (acute kidney injury) (Acute) Dehydration (Acute) NSTEMI (non-ST elevated myocardial infarction) (Acute) Acute kidney injury superimposed on chronic kidney disease (Acute) 1-acute kidney injury on chronic kidney disease. Unknown baseline. Patient likely has diabetic nephropathy. Acute kidney injury is most probably prerenal due to decreased o HEATHER inhibitor and meloxicam . SCr 1.5->1.62 in the last 24hrs. Now off IVF but she is taking po well. Difficult to tell what her urine output is since she is incontinent. No need for replacement therapy. I will continue to monitor kidney function. Keep mean arterial pressure more than 65. Current meds were reviewed and are appropriately dosed for the current CrCl. Okay to pursue cardiac cath if indicated by cardiology service. I explained to the patient that her kidney function might worsen with IV contrast exposure and she might end up needing dialysis. She did verbalize understanding. 2-hypertension. Blood pressure is well controlled. Continue current meds. 4-high anion gap metabolic acidosis. Most probably related to acute kidney injury. Stable. No need for sodium bicarb was replacement. Recheck in am. 5-anemia. Rule out GI bleed. Status post 2 RBCs unit transfusion. I will defer the management to the primary service/GI team 6-non-ST ID elevation. Cardiology is following. Not on heparin drip due to anemia. 7-diabetes. Glucose management as per the primary service.
[2017-10-23] MEDS: MELATONIN 10 MG TABLET PO (21:07)
[2017-10-24] VITALS (22 sets, daily range): BP systolic 72–125; BP diastolic 45–79; PULSE 46–78; RESP 8–16; TEMP 36.7–36.9; O2SAT 93–100
[2017-10-24] MEDS: oxyCODONE 5 MG Tablet 10 MG PO ×5 (04:37→22:45)
[2017-10-24] MEDS: 0.9% NaCl Peripheral Flush Adult/Peds IV (04:37)
[2017-10-24 04:42] LABS: Hemoglobin 9.5 g/dl (12.0-15.0); Mean Corp Hgb Conc 33.9 g/gl (32-36); Mean Corpuscular Hgb 30.2 pg (27.0-32.0); Mean Corpuscular Volume 88.9 fL (81-99); Mean Platelet Vol. 10.3 fl (6.2-12.0); Platelet Count 269 K/mm3 (150-450); RBC Distribution Width CV 15.5 % (11.6-14.6); RBC Distribution Width SD 46.4 fl (35.1-43.9); Red Blood Count 3.15 M/mm3 (4.2-5.4); White Blood Count 8.7 K/mm3 (4.4-11.0)
[2017-10-24 04:46] LABS: Scan Indicated on CBC? Y/N NO
[2017-10-24 04:51] LABS: Anion Gap 11 (5-15); BUN 31 mg/dL (7-18); BUN/Creat Ratio 17.8 RATIO (10-20); Calcium,Total 7.7 mg/dL (8.5-10.1); Chloride 109 mmol/L (98-107); Creatinine, Serum 1.74 mg/dL (0.55-1.02); EST Glomerular Filtration Rate 31 mL/min (>60); Est Glom Filt Rate - Afr Amer 37 mL/min (>60); Estimated Creatinine Clearance 30.09 ml/min; Glucose 134 mg/dL (70-110); Potassium 4.3 mmol/L (3.5-5.1); Sodium Level 138 mmol/L (136-145)
--- NOTE | 2017-10-24 06:43 | NURSING ---
Pt.'s attends changed x2 at 0620. After the first change, pt. then stated that she was urinating again. SIGNAL REPAIRER waited a few minutes and then changed the attends a second time. Pt. then stated that if she urinates again she won't say anything until after shift change so this shift doesn't have to change her again. The SIGNAL REPAIRER stated that if she urinates again to put her call light on, so that we can change her so she doesn't sit in the urine and risk her skin breaking down.
--- NOTE | 2017-10-24 07:25 | PN_ITS ---
Patient Problems: Active and Suspected Problems Nausea & vomiting (Acute) RIK (acute kidney injury) (Acute) Dehydration (Acute) NSTEMI (non-ST elevated myocardial infarction) (Acute) Acute kidney injury superimposed on chronic kidney disease (Acute) Subjective: Patient seen hemoglobin up to 9.5. Blood pressure relatively low in the 90s heart rate is controlled. Patient was seen by Dr. Stephen the day prior to his note and recommendation regarding patient medication regimen reviewed Objective: GENERAL: Appears ill looking HEENT: Clear conjunctiva, NECK; supple, normal thyroid, CHEST: Clear to auscultation bilaterally,. HEART: Regular S1 S2, no audible murmurs ABDOMEN: soft, normoactive bowel sounds, RECTAL: deferred EXTREMITIES: Bilateral BKA RADIATION CONTROL TECHNICIAN: Awake, no lateralizing signs. SKIN: No rash Vitals/I&O's: Vital Signs Temp Pulse Resp BP Pulse Ox 98.5 F 54 L 12 85/57 L 98 10/24/17 04:00 10/24/17 06:00 10/24/17 06:00 10/24/17 06:23 10/24/17 06:00 Oxygen Flow Rate 2 Oxygen Delivery Method Room Air Weight: 74 kg Intake and Output for Last 24 Hours 10/22/17 10/23/17 10/24/17 23:59 23:59 23:59 Intake Total 3388 / 3388 1620 / 1620 180 / 180 Balance 3388 / 3388 1620 / 1620 180 / 180 Laboratory Results 10/21/17 12:50: Crossmatch See Detail 10/21/17 12:50: Crossmatch See Detail 10/23/17 08:33: POC Glucose 161 H 10/23/17 14:04: POC Glucose 180 H 10/23/17 17:31: POC Glucose 165 H 10/24/17 04:30: WBC 8.7, RBC 3.15 L, Hgb 9.5 L, Hct 28.0 L, MCV 88.9, MCH 30.2, MCHC 33.9, RDW 15.5 H, RDW Differential 46.4 H, Plt Count 269, MPV 10.3 10/24/17 04:30: Sodium 138, Potassium 4.3, Chloride 109 H, Carbon Dioxide 18.0 L , Anion Gap 11, BUN 31 H, Creatinine 1.74 H, Estim Creat Clear Calc 30.09, Est GFR (MDRD) Af Amer 37 L, Est GFR (MDRD) Non-Af 31 L, BUN/Creatinine Ratio 17.8, Glucose 134 H, Calcium 7.7 L Current Medications Aspirin (Aspirin) 325 mg PO DAILY@0800 [facility] Last Admin: 10/23/17 08:35 Dose: 325 mg Chlorhexidine Gluconate () 1 each TOPICAL DAILY [facility] Last Admin: 10/23/17 03:30 Dose: 1 each Clopidogrel Bisulfate (Plavix) 75 mg PO DAILY [facility] Last Admin: 10/23/17 10:13 Dose: 75 mg Cyanocobalamin (Vitamin B12) 1,000 mcg PO DAILY@0800 [facility] Last Admin: 10/23/17 08:35 Dose: 1,000 mcg Dextrose (D50w Syringe) 0 gm IV X1 PRN; Protocol PRN Reason: Hypoglycemia Fluoxetine HCl (Prozac) 10 mg PO DAILY [facility] Last Admin: 10/23/17 10:12 Dose: 10 mg Gabapentin (Neurontin) 100 mg PO TIDCM [facility] Last Admin: 10/23/17 15:59 Dose: 100 mg Glucagon () 1 mg IM .X1 PRN PRN Reason: Hypoglycemia Heparin Sodium (Porcine) () 0 units IV UD PRN PRN Reason: Protocol Insulin Aspart (Novolog Flexpen (Bkc)) 0 units SC TIDAC [facility] PRN Reason: Protocol Last Admin: 10/23/17 17:35 Dose: 2 u Magnesium Hydroxide (Milk Of Magnesia) 30 ml PO DAILY PRN PRN PRN Reason: Constipation Melatonin (Melatonin) 10 mg PO QHS [facility] Last Admin: 10/23/17 21:07 Dose: 10 mg Metoprolol Tartrate (Lopressor (Beta Ghassan)) 12.5 mg PO BID [facility] Last Admin: 10/23/17 21:12 Dose: Not Given Nitroglycerin (Nitrostat) 0.4 mg SUBLINGUAL Q5M PRN PRN Reason: CHEST PAIN Oxycodone HCl (Oxyir) 10 mg PO Q4H PRN PRN PRN Reason: PAIN Last Admin: 10/24/17 04:37 Dose: 10 mg Senna (Senokot) 1 tablet PO DAILY [facility] Last Admin: 10/23/17 15:59 Dose: 1 tablet Sodium Chloride () 5 - 30 ml IV UD PRN PRN Reason: SALINE FLUSH Last Admin: 10/24/17 04:37 Dose: 10 ml Tolterodine Tartrate (Detrol La) 4 mg PO DAILY [facility] Last Admin: 10/23/17 10:12 Dose: 4 mg Assessment/Plan Active and Suspected Problems Nausea & vomiting (Acute) RIK (acute kidney injury) (Acute) Dehydration (Acute) NSTEMI (non-ST elevated myocardial infarction) (Acute) Acute kidney injury superimposed on chronic kidney disease (Acute) Patient is a 67 year old lady with past medical history significant for for hypertension, diabetes mellitus type 2, bilateral BKA presented with intractable nausea and vomiting. Patient did develop chest pain on the morning of 10/21/17 cardiac enzymes obtained as part of her evaluation came back at 20 consistent with acute non-ST GA. Did initiate treatment per protocol consult placed to cardiology and patient transferred to the ICU. Patient was found to have significant anemia left heart catheterization was therefore deferred. Patient has been transfused a total of 3 units PRBC as of 10/22/17. Plan is for patient undergo endoscopic evaluation by Dr. Aquino on 10/25/16. 1. Acute non-ST GA: Patient started on HEATHER inhibitors as well as dual antiplatelet therapy added beta-blockers. Did not initiate statins patient states she has allergy to statins. Patient transferred from a regular nursing floor to the ICU with consultation placed to cardiology patient heparin was not initiated in view of her significant anemia. Plan is for patient to undergo left heart catheterization; deferred pending evaluation of patient's severe anemia 2. Anemia secondary to anemia of chronic disorder/CKD did order iron studies as well as stool guaiac. Consult was placed to Dr. Aquino with general surgery for endoscopic evaluation prior to patient being discharged. Patient did receive 2 units PRBC transfusion on 3. Cardiomyopathy with an ejection fraction of 30-35% suspected to be ischemic. Plan is for patient to undergo left heart catheterization once evaluation of his severe anemia is completed 4. Diabetes mellitus type 2 patient oral hypoglycemic agents held, subsequently placed on 1800 ADA diet with Accu-Cheks before meals and at bedtime with sliding scale coverage 5. Hypertension-blood pressure controlled, home medications continued with dose adjustment as needed 6. Lactic acidosis secondary to use of metformin; held patient does not have any evidence of sepsis 7. Chronic kidney disease stage III secondary to diabetic nephropathy consultation was placed to nephrology 8. Peripheral vascular disease with bilateral lower extremity below-knee amputation patient is currently on dual antiplatelet therapy with aspirin and Plavix did continue 9. Acute kidney injury secondary to dehydration as a result of above patient is on IV fluids with monitoring of electrolyte. Patient's kidney function improving 10. DVT prophylaxis; SC heparin CODE STATUS; full code Code Visit Inpatient E&M: 59352 Subs Hosp L3
[2017-10-24] MEDS: Aspirin 325 MG Tablet PO (09:28)
[2017-10-24] MEDS: Gabapentin 100 MG Capsule PO ×3 (09:28→17:29)
[2017-10-24] MEDS: Cyanocobalamin 500 MCG Tablet 1000 MCG PO (09:29)
[2017-10-24] MEDS: Tolterodine Tartrate 4 MG CAP.SA PO (09:29)
[2017-10-24] MEDS: FLUoxetine 10 MG Capsule PO (09:30)
[2017-10-24] MEDS: Metoprolol Tartrate 25 MG Tablet 12.5 MG PO (09:30)
[2017-10-24] MEDS: Clopidogrel Bisulfate 75 MG Tablet PO (09:30)
--- NOTE | 2017-10-24 10:48 | PCM.PN.SRG ---
Patient Problems: Active and Suspected Problems Nausea & vomiting (Acute) RIK (acute kidney injury) (Acute) Dehydration (Acute) NSTEMI (non-ST elevated myocardial infarction) (Acute) Acute kidney injury superimposed on chronic kidney disease (Acute) - Physical Exam General: Alert, Oriented x3 Lungs: Clear to auscultation, Normal air movement Cardiovascular: Regular rate, Regular Rhythm Abdomen: Bowel Sounds Present, Soft, Non Tender Vital Signs Temp Pulse Resp BP Pulse Ox 98.4 F 78 12 125/79 H 98 10/24/17 08:00 10/24/17 09:30 10/24/17 08:00 10/24/17 09:30 10/24/17 08:00 Oxygen Flow Rate 2 Oxygen Delivery Method Room Air Weight: 74 kg Intake and Output for Last 24 Hours 10/22/17 10/23/17 10/24/17 23:59 23:59 23:59 Intake Total 3388 / 3388 1620 / 1620 180 / 180 Balance 3388 / 3388 1620 / 1620 180 / 180 Laboratory Tests Past 24 Hrs 10/21/17 10/21/17 10/24/17 12:50 12:50 04:30 WBC 8.7 RBC 3.15 L Hgb 9.5 L Hct 28.0 L MCV 88.9 MCH 30.2 MCHC 33.9 RDW 15.5 H RDW Differential 46.4 H Plt Count 269 MPV 10.3 Sodium Potassium Chloride Carbon Dioxide Anion Gap BUN Creatinine Estim Creat Clear Calc Est GFR (MDRD) Af Amer Est GFR (MDRD) Non-Af BUN/Creatinine Ratio Glucose Calcium Crossmatch See Detail See Detail 10/24/17 04:30 WBC RBC Hgb Hct MCV MCH MCHC RDW RDW Differential Plt Count MPV Sodium 138 Potassium 4.3 Chloride 109 H Carbon Dioxide 18.0 L Anion Gap 11 BUN 31 H Creatinine 1.74 H Estim Creat Clear Calc 30.09 Est GFR (MDRD) Af Amer 37 L Est GFR (MDRD) Non-Af 31 L BUN/Creatinine Ratio 17.8 Glucose 134 H Calcium 7.7 L Crossmatch POC Glucose 10/23/17 10/23/17 10/23/17 17:31 14:04 08:33 POC Glucose 165 H 180 H 161 H Assessment/Plan Active and Suspected Problems Nausea & vomiting (Acute) RIK (acute kidney injury) (Acute) Dehydration (Acute) NSTEMI (non-ST elevated myocardial infarction) (Acute) Acute kidney injury superimposed on chronic kidney disease (Acute) anemia-rule out GI bleed Patient's hemoglobin has responded appropriately to transfusion. She is not having bowel movements, which decreases the chance of significant ongoing bleeding. Hemoccult of stool still pending as patient is not a bowel movement since admission. We'll plan for upper endoscopy. I discussed with the patient the risks, benefits and possible complications endoscopy and the patient consents to planned procedure. Given the fact that she has a recent myocardial infarction. Her risks for sedation are increased, but I feel this is necessary given the patient's optimal plan of action to include anticoagulants. We will plan for anesthesia sedation with endoscopy on Wednesday - discussed with Dr. Manzo today. If the patient's hemoglobin dropped substantially or there are signs of active bleeding, will perform endoscopy emergently.
--- NOTE | 2017-10-24 11:26 | PCM.PN.CARD ---
Subjectve: The patient remains without acute concerns of chest discomfort or difficulty breathing. There continues to concerns of anemia possibly secondary to gastrointestinal bleeding. Objective: Vital Signs Temp Pulse Resp BP Pulse Ox 98.4 F 76 15 113/76 99 10/24/17 08:00 10/24/17 10:00 10/24/17 10:00 10/24/17 10:00 10/24/17 10:00 Oxygen Flow Rate 2 Oxygen Delivery Method Room Air Weight: 163 lb 2.273 oz Intake and Output for Last 24 Hours 10/22/17 10/23/17 10/24/17 23:59 23:59 23:59 Intake Total 3388 / 3388 1620 / 1620 180 / 180 Balance 3388 / 3388 1620 / 1620 180 / 180 General: Awake, Alert, Oriented x 3, Cooperative, No Acute Distress Lungs: Clear to auscultation Cardiovascular: Regular Rhythm, Normal S1, Normal S2 Abdomen: Bowel Sounds Present, Soft, Non Tender 10/24/17 04:30: WBC 8.7, RBC 3.15 L, Hgb 9.5 L, Hct 28.0 L, MCV 88.9, MCH 30.2, MCHC 33.9, RDW 15.5 H, RDW Differential 46.4 H, Plt Count 269, MPV 10.3 10/24/17 04:30: Sodium 138, Potassium 4.3, Chloride 109 H, Carbon Dioxide 18.0 L, Anion Gap 11, BUN 31 H, Creatinine 1.74 H, Est GFR (MDRD) Af Amer 37 L, Est GFR (MDRD) Non-Af 31 L, BUN/Creatinine Ratio 17.8, Glucose 134 H, Calcium 7.7 L Rhythm: Sinus rhythm Assessment/Plan 1. CAD/non-ST segment elevation [place] At the present time the patient will continue to be monitored. She will continue medical management as tolerated. At the moment this includes her aspirin therapy and antiplatelet therapy. She has also been on nitrates, beta-blockers, and afterload reducing agents. She apparently has allergies to statins. Based upon her low heart rate in her low blood pressure her medications have had to be readjusted. Her beta blockers are low dose. Her nitrates and afterload reducing agents with respect to her HEATHER inhibitors have been on hold and will be temporarily discontinued. She also remains anemic. Supplying her with PRBCs to increasing her H&H hopefully will be helpful with respect to her blood pressure as well as her oxygen carrying capacity in her cardiovascular status. If there is concerns of ongoing anemia thought secondary to gastrointestinal bleeding then she may need to temporarily interrupt her aspirin therapy and antiplatelet therapy. It appears she has been evaluated by Dr. Aquino of general surgery and is tentatively scheduled for upcoming endoscopy procedures. 2. Cardiomyopathy: Ischemic mediated There is concerns that she has an underlying ischemic mediated cardiomyopathy based upon her objective findings. At the moment she is without acute symptoms of CHF/pulmonary edema. She will need to be monitored. Ideally she would continue medical therapy which would include agents such as beta blockers and HEATHER inhibitors. However given her medications are being adjusted, placed on hold, or discontinued secondary to a combination of her low heart rate and low blood pressure. 3. Peripheral vascular disease According to her medical record she has underlying peripheral vascular disease. Apparently this was a contributing factor to her lower extremity issues. She has continued aspirin and antiplatelet therapy. 4. Hypertension Her blood pressures are being followed and supported as deemed appropriate. 5. Diabetes mellitus She will continue under the care of internal medicine for this. 6. Chronic renal insufficiency Her renal function is being followed. This does have an impact with respect to her volume status medications, etc. 7. Anemia She remains anemic. Again recommendations have been made to keep her hemoglobin and hematocrit elevated to assist with her oxygen carrying capacity her cardiovascular status. Overall, she will continue conservative cardiovascular medical management at this time. She is not an ideal candidate for additional invasive cardiovascular evaluation or care at the moment. Future invasive evaluation and/or care will depend upon her clinical course. This note was generated with [employer] Dictation software. Every effort was made to ensure accuracy, however, computerized high school principal mistakes may persist.
--- NOTE | 2017-10-24 11:29 | PN.CARD_ITS ---
Subjectve: The patient remains without acute concerns of chest discomfort or difficulty breathing. There continues to concerns of anemia possibly secondary to gastrointestinal bleeding. Objective: Vital Signs Temp Pulse Resp BP Pulse Ox 98.4 F 76 15 113/76 99 10/24/17 08:00 10/24/17 10:00 10/24/17 10:00 10/24/17 10:00 10/24/17 10:00 Oxygen Flow Rate 2 Oxygen Delivery Method Room Air Weight: 163 lb 2.273 oz Intake and Output for Last 24 Hours 10/22/17 10/23/17 10/24/17 23:59 23:59 23:59 Intake Total 3388 / 3388 1620 / 1620 180 / 180 Balance 3388 / 3388 1620 / 1620 180 / 180 General: Awake, Alert, Oriented x 3, Cooperative, No Acute Distress Lungs: Clear to auscultation Cardiovascular: Regular Rhythm, Normal S1, Normal S2 Abdomen: Bowel Sounds Present, Soft, Non Tender 10/24/17 04:30: WBC 8.7, RBC 3.15 L, Hgb 9.5 L, Hct 28.0 L, MCV 88.9, MCH 30.2, MCHC 33.9, RDW 15.5 H, RDW Differential 46.4 H, Plt Count 269, MPV 10.3 10/24/17 04:30: Sodium 138, Potassium 4.3, Chloride 109 H, Carbon Dioxide 18.0 L , Anion Gap 11, BUN 31 H, Creatinine 1.74 H, Est GFR (MDRD) Af Amer 37 L, Est GFR (MDRD) Non-Af 31 L, BUN/Creatinine Ratio 17.8, Glucose 134 H, Calcium 7.7 L Rhythm: Sinus rhythm Assessment/Plan 1. CAD/non-ST segment elevation [place] At the present time the patient will continue to be monitored. She will continue medical management as tolerated. At the moment this includes her aspirin therapy and antiplatelet therapy. She has also been on nitrates, beta- blockers, and afterload reducing agents. She apparently has allergies to statins. Based upon her low heart rate in her low blood pressure her medications have had to be readjusted. Her beta blockers are low dose. Her nitrates and afterload reducing agents with respect to her HEATHER inhibitors have been on hold and will be temporarily discontinued. She also remains anemic. Supplying her with PRBCs to increasing her H&H hopefully will be helpful with respect to her blood pressure as well as her oxygen carrying capacity in her cardiovascular status. If there is concerns of ongoing anemia thought secondary to gastrointestinal bleeding then she may need to temporarily interrupt her aspirin therapy and antiplatelet therapy. It appears she has been evaluated by Dr. Aquino of general surgery and is tentatively scheduled for upcoming endoscopy procedures. 2. Cardiomyopathy: Ischemic mediated There is concerns that she has an underlying ischemic mediated cardiomyopathy based upon her objective findings. At the moment she is without acute symptoms of CHF/pulmonary edema. She will need to be monitored. Ideally she would continue medical therapy which would include agents such as beta blockers and HEATHER inhibitors. However given her medications are being adjusted, placed on hold, or discontinued secondary to a combination of her low heart rate and low blood pressure. 3. Peripheral vascular disease According to her medical record she has underlying peripheral vascular disease. Apparently this was a contributing factor to her lower extremity issues. She has continued aspirin and antiplatelet therapy. 4. Hypertension Her blood pressures are being followed and supported as deemed appropriate. 5. Diabetes mellitus She will continue under the care of internal medicine for this. 6. Chronic renal insufficiency Her renal function is being followed. This does have an impact with respect to her volume status medications, etc. 7. Anemia She remains anemic. Again recommendations have been made to keep her hemoglobin and hematocrit elevated to assist with her oxygen carrying capacity her cardiovascular status. Overall, she will continue conservative cardiovascular medical management at this time. She is not an ideal candidate for additional invasive cardiovascular evaluation or care at the moment. Future invasive evaluation and /or care will depend upon her clinical course. This note was generated with [employer] Dictation software. Every effort was made to ensure accuracy, however, computerized cytogenetic technician mistakes may persist.
[2017-10-24 12:16] LABS: Bedside Glucose 219 mg/dL (70-110)
--- NOTE | 2017-10-24 12:45 | NURSING ---
TRANSFER FROM ICU - PATIENT ARRIVED AT THIS TIME. TELE ON. IV SITE WNL. BED LOCKED/LOW - TRANSFERRED TO PCU BED. PT DENIES PAIN OR SOB ON ROOM AIR.
[2017-10-24 17:31] LABS: Bedside Glucose 144 mg/dL (70-110)
--- NOTE | 2017-10-24 18:29 | NURSING ---
REVIEWED AND AGREED W/ Anju STEPHEN'S CHARTING.
--- NOTE | 2017-10-24 19:31 | PCM.PN.REN ---
Patient Problems: Active and Suspected Problems Nausea & vomiting (Acute) RIK (acute kidney injury) (Acute) Dehydration (Acute) NSTEMI (non-ST elevated myocardial infarction) (Acute) Acute kidney injury superimposed on chronic kidney disease (Acute) Subjective: Following for acute kidney injury. Patient denies of breath, nausea, vomiting. She has midsternal sharp chest pain which remains unchanged. - Physical Exam General: Alert, Oriented x3 HEENT: Atraumatic, Normocephalic Oral: Moist Mucosa Neck: Supple Lungs: Clear to auscultation Cardiovascular: Normal S1, Normal S2, No murmurs Abdomen: Bowel Sounds Present, Soft, Non Tender Extremities: - - status post bilateral AKA. Vital Signs Temp Pulse Resp BP Pulse Ox 98.5 F 66 16 100/72 94 10/24/17 17:00 10/24/17 17:00 10/24/17 17:00 10/24/17 17:00 10/24/17 17:00 Oxygen Flow Rate 2 Oxygen Delivery Method Room Air Weight: 74 kg Intake and Output for Last 24 Hours 10/22/17 10/23/17 10/24/17 23:59 23:59 23:59 Intake Total 3388 / 3388 1620 / 1620 1080 / 1080 Output Total 0 / 0 Balance 3388 / 3388 1620 / 1620 1080 / 1080 Laboratory Tests Past 24 Hrs 10/24/17 10/24/17 04:30 04:30 WBC 8.7 RBC 3.15 L Hgb 9.5 L Hct 28.0 L MCV 88.9 MCH 30.2 MCHC 33.9 RDW 15.5 H RDW Differential 46.4 H Plt Count 269 MPV 10.3 Sodium 138 Potassium 4.3 Chloride 109 H Carbon Dioxide 18.0 L Anion Gap 11 BUN 31 H Creatinine 1.74 H Estim Creat Clear Calc 30.09 Est GFR (MDRD) Af Amer 37 L Est GFR (MDRD) Non-Af 31 L BUN/Creatinine Ratio 17.8 Glucose 134 H Calcium 7.7 L POC Glucose 10/24/17 10/24/17 16:57 12:06 POC Glucose 144 H 219 H Assessment/Plan Active and Suspected Problems Nausea & vomiting (Acute) RIK (acute kidney injury) (Acute) Dehydration (Acute) NSTEMI (non-ST elevated myocardial infarction) (Acute) Acute kidney injury superimposed on chronic kidney disease (Acute) 1-acute kidney injury on chronic kidney disease. Unknown baseline. Patient likely has diabetic nephropathy. Acute kidney injury is most probably prerenal vs ATN due to decreased o HEATHER inhibitor and meloxicam . SCr 1.5->1.62->1.74 in the last 48hrs. Now off IVF but she is taking po well. Difficult to tell what her urine output is since she is incontinent. No need for replacement therapy. I will continue to monitor kidney function. Keep mean arterial pressure more than 65. Current meds were reviewed and are appropriately dosed for the current CrCl. Okay to pursue cardiac cath if indicated by cardiology service. Explained to the patient that her kidney function might worsen with IV contrast exposure and she might end up needing dialysis. She did verbalize understanding. 2-hypertension. Blood pressure is well controlled. Continue current meds. 4-anion gap metabolic acidosis. Most probably related to acute kidney injury. HCO3 is stable. No need for sodium bicarb was replacement. Recheck in am. 5-anemia. Rule out GI bleed. Status post 2 RBCs unit transfusion. I will defer the management to the primary service/GI team 6-non-ST [place] elevation. Cardiology is following. Not on heparin drip due to anemia. 7-diabetes. Glucose management as per the primary service.
[2017-10-24] MEDS: MELATONIN 10 MG TABLET PO (21:46)
[2017-10-24 23:26] LABS: Bedside Glucose 180 mg/dL (70-110)
[2017-10-25] VITALS (17 sets, daily range): BP systolic 82–125; BP diastolic 53–72; PULSE 48–74; RESP 10–16; TEMP 36.6–36.8; O2SAT 95–99; BMI 25.6; BMI 25.9
--- NOTE | 2017-10-25 | IMM_PTH ---
PATIENT: CONG SHAW LOC: PCU U#:[id number] AGE/SX: 67/F ROOM: [facility] RE10/21/[address]: Dr. Jarret Ruby DO : 1950 BED: 1 DIS: 10/26/2017 SPEC #: [id number] RECD: 10/27/17 10:58 STATUS: AMAYA REQ #: [id number] LEWIS: 10/25/17 00:[address]: Triston Denny DEPT: IMMUNOHISTOCHEMISTRY RECD BY: Ashanti Stewart ENTERED: 10/27/17 10:58 SP TYPE: IMMUNO OTHR DR: MD Dr. Sushila Sherwood MD Dr. David Kittoe, MD Dr. Mark Elderbrock, MD Dr. Mark Tereletsky, DO Tissues: A - Stomach, NOS Procedures: H Pylori (initial) PHYSICIAN & INSTITUTION [place] [id number] SPECIMEN INFORMATION: Tissue Source: A ? Antral biopsy Clinical Info: Lucrecia Specimen Number: [id number] CPT code: 02783 METHODOLOGY: Deparaffinized sections of prefer/formalin-fixed tissue or PAP/DQ stained slides are incubated with monoclonal/polyclonal antibodies/oligonucleotide probes. Localization is made via biotin free immunoperoxidase method. Appropriate controls are performed and reacted as expected. Results on target cell population are indicated in the following table: RESULTS: ANTIBODY / CLONE RESULT Block A H Pylori (polyclonal) negative These tests were developed and their performance characteristics determined by [facility]. They may not have been cleared or approved by the U.S. Food and Drug Administration. The FDA has determined that such clearance or approval is not necessary. INTERPRETATION: A. Antral biopsy: Negative for Helicobacter pylori organisms. AM:tashia 10/28/17
--- NOTE | 2017-10-25 | GASB_PTH ---
PATIENT: CONG SHAW LOC: [facility] U#:[id number] AGE/SX: 67/F ROOM: [facility] RE10/21/[address]: Dr. Jarret Ruby, : 1950 BED: 1 DIS: 10/26/2017 SPEC #: [id number] RECD: 10/25/17 16:46 STATUS: AMAYA REQ #: [id number] LEWIS: 10/25/17 00:[address]: Triston Denny DEPT: SURGICAL PATHOLOGY RECD BY: Tab Betancourt ENTERED: 10/26/17 08:55 SP TYPE: Gastric Bx OTHR DR: MD Dr. Sushila Sherwood MD Dr. David Kittoe, MD Dr. Mark Elderbrock, MD Dr. Mark Tereletsky, Tissues: A - Gastric mucous membrane B - Esophagus, NOS Procedures: Special Stain Group I Surgery Specimen Level IV AFB Stain (control) GMS Stain (control) Comments: @ Ordering doctor for SUIV edited from to @ by CHRISTIAN at 10/26/17 1229 @ Submitting doctor edited from to @ by CHRISTIAN at 10/26/17 1229 HEADER OPERATION: EGD PRE-OP DIAGNOSIS: Anemia TISSUE SUBMITTED: A ? Antral biopsy, B ? Distal esophagus biopsy MICROSCOPIC DIAGNOSIS A. Gastric antrum, biopsy: Gastritis. B. Distal esophagus, biopsy: Fibrinopurulent material. Rare fragments of benign squamous epithelium. Negative for acid-fast bacilli and fungal organisms. AM:tashia 10/27/17 COMMENT A. The results of immunohistochemistry for Helicobacter pylori will be reported separately ([id number]). B. The findings are suggestive of an ulcer. Clinical correlation is suggested. AFB and GMS stains with matched controls were used in the evaluation of this case. Case has been reviewed in consultation with Dr. Judd who concurs with the above diagnosis. IDC:SJ MICROSCOPIC DESCRIPTION Slides are reviewed. A. Sections show small collections and groups of plasma cells in the mucosa. Active inflammation is not present. These findings are consistent with mild to moderate chronic gastritis. GROSS DESCRIPTION A - Received in fixative is one container labeled with the patient's name and designated antral biopsy. The specimen consists of one irregular fragment of light berg soft tissue that measures 0.3 x 0.3 x 0.1 cm. The specimen is totally submitted in one cassette. B - Received in fixative is one container labeled with the patient's name and designated distal esophagus biopsy. The specimen consists of multiple irregular fragments of light berg soft tissue that in aggregate measure 0.3 x 0.3 x 0.1 cm. The specimen is totally submitted in one cassette. / SJ:tashia 10/26/17 TC:2 CPT: 99236 x2, 12700 x2
[2017-10-25 04:19] LABS: Absolute Lymphocyte Count 1.19 X10^3/ul (0.83-4.51); Absolute Neutrophil Count 5.9 X10^3/uL (2.0-7.7); Basophil# 0.03 X10^3/uL; Basophil% 0.4 % (0-1); Eosinophils% 3.7 % (0-5); Hematocrit 28.3 % (37-47); Hemoglobin 9.4 g/dl (12.0-15.0); Lymphocyte # 1.19 X10^3/ul (4.0); Lymphocyte % 14.6 % (19-41); Mean Corp Hgb Conc 33.2 g/gl (32-36); Mean Corpuscular Hgb 29.8 pg (27.0-32.0); Mean Corpuscular Volume 89.8 fL (81-99); Mean Platelet Vol. 10.3 fl (6.2-12.0); Monocyte# 0.74 X10^3/uL; Monocyte% 9.1 % (0-10); Neutrophil # 5.85 X10^3/uL (2.7-7.7); Neutrophil % 71.7 % (47-70); Platelet Count 312 K/mm3 (150-450); RBC Distribution Width CV 15.9 % (11.6-14.6); RBC Distribution Width SD 48.6 fl (35.1-43.9); Red Blood Count 3.15 M/mm3 (4.2-5.4); White Blood Count 8.2 K/mm3 (4.4-11.0)
[2017-10-25 04:26] LABS: POSITIVE COUNT NO; POSITIVE DIFFERENTIAL NO; POSITIVE MORPHOLOGY NO
[2017-10-25 04:32] LABS: International Normalized Ratio 1.2; Prothrombin Time (Protime)PT. 14.4 SECONDS (11.7-14.9)
[2017-10-25 04:33] LABS: Partial Thromboplast Time 33.1 Seconds (24.1-36.2)
[2017-10-25 04:35] LABS: Albumin, Serum 2.2 g/dL (3.4-5.0); BUN 34 mg/dL (7-18); BUN/Creat Ratio 19.2 RATIO (10-20); Calcium,Total 7.9 mg/dL (8.5-10.1); Chloride 110 mmol/L (98-107); Creatinine, Serum 1.77 mg/dL (0.55-1.02); EST Glomerular Filtration Rate 30 mL/min (>60); Est Glom Filt Rate - Afr Amer 37 mL/min (>60); Estimated Creatinine Clearance 29.58 ml/min; Glucose 147 mg/dL (70-110); Phosphorus 4.4 mg/dL (2.5-4.9); Potassium 4.7 mmol/L (3.5-5.1); Sodium Level 137 mmol/L (136-145)
--- NOTE | 2017-10-25 05:55 | EKG12_ITS ---
Test Reason : AM EKG Blood Pressure : / mmHG Vent. Rate : 059 BPM Atrial Rate : 059 BPM P-R Int : 196 ms QRS Dur : 092 ms QT Int : 466 ms P-R-T Axes : 011 037 160 degrees QTc Int : 461 ms Sinus bradycardia Marked ST abnormality, possible anterior subendocardial injury Abnormal ECG When compared with ECG of 21-OCT-2017 11:04, MANUAL COMPARISON REQUIRED, DATA IS UNCONFIRMED Confirmed by BRYANT KILGORE ([id number]), editor producer TEVIN DE LA ROSA ([id number]) on 10/28/2017 1:58:06 PM Referred By: FLORENTINO Confirmed By:BRYANT KILGORE
[2017-10-25 07:01] LABS: Bedside Glucose 170 mg/dL (70-110)
[2017-10-25] MEDS: Metoprolol Tartrate 25 MG Tablet 12.5 MG PO (10:02)
[2017-10-25] MEDS: Gabapentin 100 MG Capsule PO ×3 (10:02→21:13)
[2017-10-25 11:46] LABS: Bedside Glucose 139 mg/dL (70-110)
--- NOTE | 2017-10-25 14:29 | PCM.OPRPT ---
Report of Operation Date of Procedure: 10/25/17 Pre-Operative Diagnosis: anemia Post-Operative Diagnosis: gastric ulcer - prepyloric Surgery/Procedure Performed:: EGD with Biopsy hand router operator: None Type of Anesthesia:: MAC Anesthesiologist: Ba Ricketts ASA3 Specimen's removed: gastric Description of Procedure: The patient was brought to the endoscopy suite. Sign in was performed verifying patient, site, planned procedure, critical nursing information, the patient was monitored with cardiac, pulse oximetric, and blood pressure monitoring devices. Monitored anesthetic care was provided for sedation. Following IV sedation and after the oropharynx was sprayed with Cetacaine spray, a video gastroscope was inserted in the oropharynx and advanced down the esophagus without difficulty. The scope was advanced through the stomach, through the pylorus through the duodenum to the proximal jejunum. the jejunum and third to fourth portion appeared unremarkable. As the scope was withdrawn, there was mild duodenitis in the bulb. As the scope was further withdrawn. There was a deep cratered ulcer with a white base located along the lesser curvature just prepyloric. This was approximately one quarter circumference of the prepyloric area. There is no stigmata of recent bleeding. Biopsies were obtained for H. pylori and pathology. The remainder of the stomach appeared relatively unremarkable. There was food still in the stomach. The scope was retroflexed. No specific abnormality seen in the GE junction. As the scope was withdrawn. The patient have distal mild esophagitis with remainder esophagus unremarkable. The patient tolerated the procedure well and was brought to recovery in stable condition
--- NOTE | 2017-10-25 14:33 | OP.PCM_ITS ---
Report of Operation Date of Procedure: 10/25/17 Pre-Operative Diagnosis: anemia Post-Operative Diagnosis: gastric ulcer - prepyloric Surgery/Procedure Performed:: EGD with Biopsy director of human resources: None Type of Anesthesia:: MAC Anesthesiologist: Ba Ricketts ASA3 Specimen's removed: gastric Description of Procedure: The patient was brought to the endoscopy suite. Sign in was performed verifying patient, site, planned procedure, critical nursing information, the patient was monitored with cardiac, pulse oximetric, and blood pressure monitoring devices. Monitored anesthetic care was provided for sedation. Following IV sedation and after the oropharynx was sprayed with Cetacaine spray , a video gastroscope was inserted in the oropharynx and advanced down the esophagus without difficulty. The scope was advanced through the stomach, through the pylorus through the duodenum to the proximal jejunum. the jejunum and third to fourth portion appeared unremarkable. As the scope was withdrawn, there was mild duodenitis in the bulb. As the scope was further withdrawn. There was a deep cratered ulcer with a white base located along the lesser curvature just prepyloric. This was approximately one quarter circumference of the prepyloric area. There is no stigmata of recent bleeding. Biopsies were obtained for H. pylori and pathology. The remainder of the stomach appeared relatively unremarkable. There was food still in the stomach. The scope was retroflexed. No specific abnormality seen in the GE junction. As the scope was withdrawn. The patient have distal mild esophagitis with remainder esophagus unremarkable. The patient tolerated the procedure well and was brought to recovery in stable condition
--- NOTE | 2017-10-25 15:15 | PCM.PROGNOTE ---
Patient Problems: Active and Suspected Problems Nausea & vomiting (Acute) RIK (acute kidney injury) (Acute) Dehydration (Acute) NSTEMI (non-ST elevated myocardial infarction) (Acute) Acute kidney injury superimposed on chronic kidney disease (Acute) Subjective: Patient seen and examined. Underwent EGD this afternoon which showed gastric ulcer. Patient denies symptoms currently. Denies further nausea, vomiting. Denies abdominal pain. Patient was given the option to be discharged home this evening and she wishes to stay until tomorrow morning. She states her drink mixer is not able to pick her up tonight. Plan on discharge in the morning. Hemoglobin has remained stable. - Physical Exam General: Alert, Oriented x3, Cooperative HEENT: Atraumatic, PERRLA, EOMI, Normocephalic Neck: Supple, No JVD, Negative Carotid Bruits Lungs: Clear to auscultation, Normal air movement Cardiovascular: Regular rate, Regular Rhythm, Normal S1, Normal S2, No murmurs Abdomen: Bowel Sounds Present, Soft, Non Tender, Non-Distended Extremities: No clubbing, No cyanosis, No edema, Capillary Refill Less than 3 Seconds Skin: No rashes, No breakdown Musculoskeletal: No Tenderness to Palpation of Joints or Extremities, - - Bilateral BKA Neurological: Cranial nerves II-XII grossly intact, Neuro grossly intact Psych/Mental Status: Normal Affect, Appropriate Vital Signs Temp Pulse Resp BP Pulse Ox 98.2 F 54 L 16 108/57 L 98 10/25/17 15:04 10/25/17 15:04 10/25/17 15:04 10/25/17 15:04 10/25/17 15:04 Oxygen Flow Rate 2 Oxygen Delivery Method Room Air Weight: 74.8 kg Body Mass Index (BMI) 25.9 Intake and Output for Last 24 Hours 10/23/17 10/24/17 10/25/17 23:59 23:59 23:59 Intake Total 1620 / 1620 1642 / 1642 564 / 564 Output Total 0 / 0 Balance 1620 / 1620 1642 / 1642 564 / 564 Laboratory Tests Past 24 Hrs 10/25/17 10/25/17 10/25/17 04:06 04:06 04:06 WBC 8.2 RBC 3.15 L Hgb 9.4 L Hct 28.3 L MCV 89.8 MCH 29.8 MCHC 33.2 RDW 15.9 H RDW Differential 48.6 H Plt Count 312 MPV 10.3 Immature Gran % (Auto) 0.500 Neut % (Auto) 71.7 H Lymph % (Auto) 14.6 L Robeson % (Auto) 9.1 Eos % (Auto) 3.7 Baso % (Auto) 0.4 Absolute Neuts (auto) 5.9 Absolute Lymphs (auto) 1.19 Total Counted Not Reportable PT 14.4 INR 1.2 APTT 33.1 Sodium 137 Potassium 4.7 Chloride 110 H Carbon Dioxide 18.0 L BUN 34 H Creatinine 1.77 H Estim Creat Clear Calc 29.58 Est GFR (MDRD) Af Amer 37 L Est GFR (MDRD) Non-Af 30 L BUN/Creatinine Ratio 19.2 Glucose 147 H Calcium 7.9 L Phosphorus 4.4 Albumin 2.2 L POC Glucose 10/25/17 10/25/17 10/24/17 11:14 06:53 23:16 POC Glucose 139 H 170 H 180 H 10/24/17 16:57 POC Glucose 144 H Assessment/Plan Active and Suspected Problems Nausea & vomiting (Acute) RIK (acute kidney injury) (Acute) Dehydration (Acute) NSTEMI (non-ST elevated myocardial infarction) (Acute) Acute kidney injury superimposed on chronic kidney disease (Acute) Patient is a 67-year-old male admitted 10/20/2017 due to intractable nausea, vomiting. She has a past medical history of type 2 diabetes mellitus, hypertension, chronic kidney disease stage III, peripheral vascular disease, anemia of chronic disease, bilateral BKA. 1. Acute blood loss anemia secondary to acute gastric ulcer-prepyloric on anemia of chronic disease-requiring 3 units blood transfusion. Hemoglobin now stable. Monitor CBC. Continue PPI twice daily. Patient underwent EGD with biopsy 10/25/2017 which demonstrated prepyloric gastric ulcer. She will need to discontinue meloxicam usage at discharge and continue twice daily PPI therapy until further reassessed by surgery. Patient to receive iron IV. 2. Acute kidney injury on chronic kidney disease stage III-acutely suspected secondary to dehydration versus HEATHER inhibitor/meloxicam use. Suspected chronically due to diabetic neuropathy. Nephrology following. Continue to monitor. HEATHER inhibitor and meloxicam discontinued. 3. CAD/non-ST segment elevation [place]/ischemic cardiomyopathy-cardiology consulted. Patient is to continue medical therapy. Continue aspirin, Plavix, beta-shelby. Patient has a reported allergy to statins. Patient denies chest pain. Heart catheterization deferred given acute anemia. Patient may require cardiac catheterization in the future. She will follow with cardiology as outpatient. Echocardiogram shows an estimated ejection fraction of 30-35%, moderate mitral valve insufficiency. Not a candidate for HEATHER inhibitor given RIK/CKD. 4. PVD-continue aspirin, Plavix. Patient has an intolerance to statins. 5. Type 2 diabetes [id number] before meals at bedtime with sliding scale insulin. Hemoglobin A1c 6.1%. 6. Hypertension-stable, running on the low side. Continue to monitor. 7. Bilateral BKA-PT/OT. Patient denies home-going needs. She is wheelchair-bound. DVT prophylaxis-SCDs, pharmacologic prophylaxis contraindicated given acute anemia. Discharge planning: Plan for discharge in a.m. This patient was seen by DONNA Carranza under the supervision of Dr. Ruby.
--- NOTE | 2017-10-25 15:38 | PN_ITS ---
Patient Problems: Active and Suspected Problems Nausea & vomiting (Acute) RIK (acute kidney injury) (Acute) Dehydration (Acute) NSTEMI (non-ST elevated myocardial infarction) (Acute) Acute kidney injury superimposed on chronic kidney disease (Acute) Subjective: Patient seen and examined. Underwent EGD this afternoon which showed gastric ulcer. Patient denies symptoms currently. Denies further nausea, vomiting. Denies abdominal pain. Patient was given the option to be discharged home this evening and she wishes to stay until tomorrow morning. She states her intake nurse is not able to pick her up tonight. Plan on discharge in the morning. Hemoglobin has remained stable. - Physical Exam General: Alert, Oriented x3, Cooperative HEENT: Atraumatic, PERRLA, EOMI, Normocephalic Neck: Supple, No JVD, Negative Carotid Bruits Lungs: Clear to auscultation, Normal air movement Cardiovascular: Regular rate, Regular Rhythm, Normal S1, Normal S2, No murmurs Abdomen: Bowel Sounds Present, Soft, Non Tender, Non-Distended Extremities: No clubbing, No cyanosis, No edema, Capillary Refill Less than 3 Seconds Skin: No rashes, No breakdown Musculoskeletal: No Tenderness to Palpation of Joints or Extremities, - - Bilateral BKA Neurological: Cranial nerves II-XII grossly intact, Neuro grossly intact Psych/Mental Status: Normal Affect, Appropriate Vital Signs Temp Pulse Resp BP Pulse Ox 98.2 F 54 L 16 108/57 L 98 10/25/17 15:04 10/25/17 15:04 10/25/17 15:04 10/25/17 15:04 10/25/17 15:04 Oxygen Flow Rate 2 Oxygen Delivery Method Room Air Weight: 74.8 kg Body Mass Index (BMI) 25.9 Intake and Output for Last 24 Hours 10/23/17 10/24/17 10/25/17 23:59 23:59 23:59 Intake Total 1620 / 1620 1642 / 1642 564 / 564 Output Total 0 / 0 Balance 1620 / 1620 1642 / 1642 564 / 564 Laboratory Tests Past 24 Hrs 10/25/17 10/25/17 10/25/17 04:06 04:06 04:06 WBC 8.2 RBC 3.15 L Hgb 9.4 L Hct 28.3 L MCV 89.8 MCH 29.8 MCHC 33.2 RDW 15.9 H RDW Differential 48.6 H Plt Count 312 MPV 10.3 Immature Gran % (Auto) 0.500 Neut % (Auto) 71.7 H Lymph % (Auto) 14.6 L Butts % (Auto) 9.1 Eos % (Auto) 3.7 Baso % (Auto) 0.4 Absolute Neuts (auto) 5.9 Absolute Lymphs (auto) 1.19 Total Counted Not Reportable PT 14.4 INR 1.2 APTT 33.1 Sodium 137 Potassium 4.7 Chloride 110 H Carbon Dioxide 18.0 L BUN 34 H Creatinine 1.77 H Estim Creat Clear Calc 29.58 Est GFR (MDRD) Af Amer 37 L Est GFR (MDRD) Non-Af 30 L BUN/Creatinine Ratio 19.2 Glucose 147 H Calcium 7.9 L Phosphorus 4.4 Albumin 2.2 L POC Glucose 10/25/17 10/25/17 10/24/17 11:14 06:53 23:16 POC Glucose 139 H 170 H 180 H 10/24/17 16:57 POC Glucose 144 H Assessment/Plan Active and Suspected Problems Nausea & vomiting (Acute) RKI (acute kidney injury) (Acute) Dehydration (Acute) NSTEMI (non-ST elevated myocardial infarction) (Acute) Acute kidney injury superimposed on chronic kidney disease (Acute) Patient is a 67-year-old male admitted 10/20/2017 due to intractable nausea, vomiting. She has a past medical history of type 2 diabetes mellitus, hypertension, chronic kidney disease stage III, peripheral vascular disease, anemia of chronic disease, bilateral BKA. 1. Acute blood loss anemia secondary to acute gastric ulcer-prepyloric on anemia of chronic disease-requiring 3 units blood transfusion. Hemoglobin now stable. Monitor CBC. Continue PPI twice daily. Patient underwent EGD with biopsy 10/25/2017 which demonstrated prepyloric gastric ulcer. She will need to discontinue meloxicam usage at discharge and continue twice daily PPI therapy until further reassessed by surgery. Patient to receive iron IV. 2. Acute kidney injury on chronic kidney disease stage III-acutely suspected secondary to dehydration versus HEATHER inhibitor/meloxicam use. Suspected chronically due to diabetic neuropathy. Nephrology following. Continue to monitor. HEATHER inhibitor and meloxicam discontinued. 3. CAD/non-ST segment elevation [place]/ischemic cardiomyopathy-cardiology consulted. Patient is to continue medical therapy. Continue aspirin, Plavix, beta-shelby. Patient has a reported allergy to statins. Patient denies chest pain. Heart catheterization deferred given acute anemia. Patient may require cardiac catheterization in the future. She will follow with cardiology as outpatient. Echocardiogram shows an estimated ejection fraction of 30-35%, moderate mitral valve insufficiency. Not a candidate for HEATHER inhibitor given RIK/CKD. 4. PVD-continue aspirin, Plavix. Patient has an intolerance to statins. 5. Type 2 diabetes [id number] before meals at bedtime with sliding scale insulin. Hemoglobin A1c 6.1%. 6. Hypertension-stable, running on the low side. Continue to monitor. 7. Bilateral BKA-PT/OT. Patient denies home-going needs. She is wheelchair- bound. DVT prophylaxis-SCDs, pharmacologic prophylaxis contraindicated given acute anemia. Discharge planning: Plan for discharge in a.m. This patient was seen by DONNA Carranza under the supervision of Dr. Ruby.
[2017-10-25] MEDS: Cyanocobalamin 500 MCG Tablet 1000 MCG PO (15:58)
[2017-10-25] MEDS: Senna Tablet 1 TABLET PO (15:59)
[2017-10-25] MEDS: Clopidogrel Bisulfate 75 MG Tablet PO (15:59)
[2017-10-25] MEDS: Tolterodine Tartrate 4 MG CAP.SA PO (15:59)
[2017-10-25] MEDS: FLUoxetine 10 MG Capsule PO (15:59)
[2017-10-25 16:21] LABS: Bedside Glucose 129 mg/dL (70-110)
[2017-10-25] MEDS: 0.9% NaCl Peripheral Flush Adult/Peds IV (18:43)
[2017-10-25] MEDS: oxyCODONE 5 MG Tablet 10 MG PO (18:45)
[2017-10-25] MEDS: MELATONIN 10 MG TABLET PO (21:13)
[2017-10-25] MEDS: Pantoprazole Sodium 40 MG Tablet PO (21:13)
[2017-10-25 21:56] LABS: Bedside Glucose 303 mg/dL (70-110)
--- NOTE | 2017-10-25 23:43 | NURSING ---
Pt had RN speak with POEric on phone. POEric concerned that pt has had a heart attack. POA concerned that no ECHO has been done. POA stated she doesn't want pt to go home and . RN told STEVE that RN would read through reports this shift and if POEric can call back in the AM, RN will discuss with her what RN has found out.
[2017-10-26] VITALS (11 sets, daily range): BP systolic 98–115; BP diastolic 49–67; PULSE 49–69; RESP 11–18; TEMP 36.7–37.4; O2SAT 93–100
[2017-10-26] MEDS: oxyCODONE 5 MG Tablet 10 MG PO (00:19)
[2017-10-26 05:46] LABS: Hematocrit 26.3 % (37-47); Hemoglobin 8.7 g/dl (12.0-15.0); Mean Corp Hgb Conc 33.1 g/gl (32-36); Mean Corpuscular Hgb 29.5 pg (27.0-32.0); Mean Corpuscular Volume 89.2 fL (81-99); Mean Platelet Vol. 10.2 fl (6.2-12.0); Platelet Count 291 K/mm3 (150-450); RBC Distribution Width CV 15.4 % (11.6-14.6); RBC Distribution Width SD 48.1 fl (35.1-43.9); Red Blood Count 2.95 M/mm3 (4.2-5.4); White Blood Count 7.5 K/mm3 (4.4-11.0)
[2017-10-26 05:48] LABS: Scan Indicated on CBC? Y/N NO
[2017-10-26 05:57] LABS: Anion Gap 10 (5-15); BUN 34 mg/dL (7-18); BUN/Creat Ratio 21.8 RATIO (10-20); Calcium,Total 7.9 mg/dL (8.5-10.1); Chloride 109 mmol/L (98-107); Creatinine, Serum 1.56 mg/dL (0.55-1.02); EST Glomerular Filtration Rate 35 mL/min (>60); Est Glom Filt Rate - Afr Amer 42 mL/min (>60); Estimated Creatinine Clearance 32.31 ml/min; Glucose 111 mg/dL (70-110); Potassium 4.7 mmol/L (3.5-5.1); Sodium Level 136 mmol/L (136-145)
[2017-10-26 06:50] LABS: Bedside Glucose 114 mg/dL (70-110)
[2017-10-26] MEDS: Gabapentin 100 MG Capsule PO ×2 (07:43→11:15)
[2017-10-26] MEDS: Aspirin 81 MG TAB.CHEW PO (07:43)
[2017-10-26] MEDS: Clopidogrel Bisulfate 75 MG Tablet PO (07:44)
[2017-10-26] MEDS: Cyanocobalamin 500 MCG Tablet 1000 MCG PO (07:44)
[2017-10-26] MEDS: Tolterodine Tartrate 4 MG CAP.SA PO (07:44)
[2017-10-26] MEDS: FLUoxetine 10 MG Capsule PO (07:45)
[2017-10-26] MEDS: Senna Tablet 1 TABLET PO (07:47)
[2017-10-26] MEDS: Pantoprazole Sodium 40 MG Tablet PO (07:51)
[2017-10-26] MEDS: 0.9% NaCl Peripheral Flush Adult/Peds IV (07:53)
--- NOTE | 2017-10-26 08:15 | PCM.DC ---
- Discharge Diagnoses Current Active Problems: Current Active and Chronic Problems Nausea & vomiting (Acute) RIK (acute kidney injury) (Acute) Dehydration (Acute) Essential (primary) hypertension (Chronic) NSTEMI (non-ST elevated myocardial infarction) (Acute) Acute kidney injury superimposed on chronic kidney disease (Acute) You will use the following diet at home:: Calorie/Carbohydrate Controlled (specify 1200, 1400, etc) Discharge Activity: Return to Normal Activity Call your doctor if you observe: Fever of 101 or Higher, Shortness of breath, Dizziness, Fainting spells, Chest pain, Increased palpitations (irregular heartbeat) Instructions: ED Nausea Vomiting Allergies/Adverse Reactions: Allergies allopurinol Allergy (Verified 10/20/17 06:16) Unknown bacitracin Allergy (Verified 10/20/17 06:16) Unknown gemfibrozil [Gemfibrozil] Allergy (Verified 10/20/17 06:16) Unknown gentamicin [Gentamicin] Allergy (Verified 10/20/17 06:16) Unknown Penicillins Allergy (Verified 10/20/17 06:16) Unknown pentoxifylline Allergy (Verified 10/20/17 06:16) Unknown pioglitazone Allergy (Verified 10/20/17 06:16) Unknown pioglitazone HCl [From Actos] Allergy (Verified 10/20/17 06:16) Unknown tramadol HCl [From Ultram] Allergy (Verified 10/20/17 06:16) Unknown simvastatin Adverse Reaction (Verified 10/20/17 06:16) Pain in joints Medications to take at Discharge Enalapril Maleate [Vasotec] 10 mg PO DAILY 07/03/13 Gabapentin [Neurontin] 600 mg PO DAILY 07/03/13 Clopidogrel Bisulfate [Plavix] 75 mg PO DAILY 07/18/13 Fluoxetine [Prozac] 10 mg PO DAILY 02/08/14 Metformin HCl [Glucophage] 500 mg PO BID 10/20/17 Oxybutynin Chloride [Ditropan Xl] 15 mg PO DAILY 10/20/17 Aspirin [Aspirin, Baby] 81 mg PO DAILY@0800 #30 tab.chew 10/26/17 Hydrocodone Bitart/Apap 5-325 [[place] 5MG-325MG] 1 tab PO Q4H PRN PRN #30 tab 10/26/17 Metoprolol Tartrate [Lopressor (beta shelby)] 12.5 mg PO BID #60 tab 10/26/17 Pantoprazole Sodium [Protonix] 40 mg PO BID #60 tab 10/26/17 The following prescriptions were given: Hydrocodone Bitart/Apap 5-325 [[place] 5MG-325MG] 1 tab PO Q4H PRN PRN #30 tab PRN Reason: Pain Aspirin [Aspirin, Baby] 81 mg PO DAILY@0800 #30 tab.chew Metoprolol Tartrate [Lopressor (beta shelby)] 12.5 mg PO BID #60 tab Pantoprazole Sodium [Protonix] 40 mg PO BID #60 tab Please follow up with your Primary Care Physician in: 1-2 Weeks Please Follow Up With: Triston Denny MD When: 7-10 Days Please Follow Up With: Malachi Stephen MD When: 4 Weeks Proposed Discharge Date: 10/26/17
--- NOTE | 2017-10-26 10:25 | PCM.DC.SUM ---
Discharge Date and Diagnosis Date of Admission: 10/20/17 Date of Discharge: 10/26/17 - Primary Discharge Diagnosis Active and Suspected Problems 1. Acute blood loss anemia secondary to acute gastric ulcer-prepyloric with hemorrhage requiring 3 units packed red blood cell transfusion 2. Acute kidney injury on chronic kidney disease stage III 3. Non-ST segment elevation [place] - Secondary Discharge Diagnosis Chronic Problems DM2 (diabetes mellitus, type 2) (Chronic) Essential (primary) hypertension (Chronic) CAD/ischemic cardiomyopathy PVD Chronic kidney disease stage III Status post bilateral BKA Hospital Course and Treatment Dr. Stephen- Cardiology Dr. Schafer- Nephrology Dr. Denny- Surgery Operations: None Procedures: 2-D Echocardiogram, EGD Summary of Care Provided: Patient is a 67-year-old male admitted 10/20/2017 due to intractable nausea, vomiting. She has a past medical history of type 2 diabetes mellitus, hypertension, chronic kidney disease stage III, peripheral vascular disease, anemia of chronic disease, bilateral BKA. 1. Acute blood loss anemia secondary to acute hemorrhagic gastric ulcer-prepyloric on anemia of chronic disease-requiring 3 units blood transfusion. Hemoglobin now stable. Continue PPI twice daily. Patient underwent EGD with biopsy 10/25/2017 which demonstrated prepyloric gastric ulcer. She will need to discontinue meloxicam usage at discharge and continue twice daily PPI therapy until further reassessed by surgery. Patient received IV iron prior to discharge. She will follow-up with Dr. Aquino in 7-10 days. 2. Acute kidney injury on chronic kidney disease stage III-acutely suspected secondary to dehydration versus HEATHER inhibitor/meloxicam use. Suspected chronically due to diabetic neuropathy. Nephrology consulted during admission. She can continue outpatient follow-up. 3. CAD/non-ST segment elevation [place]/ischemic cardiomyopathy-cardiology consulted during admission. Patient is to continue medical therapy. Continue aspirin, Plavix, beta-shelby. Patient has a reported allergy to statins. Patient denies chest pain. Heart catheterization deferred given acute anemia and multiple comorbidities. Patient may require cardiac catheterization in the future. She will follow with cardiology as outpatient. Echocardiogram shows an estimated ejection fraction of 30-35%, moderate mitral valve insufficiency. Okay to restart HEATHER inhibitor at discharge per nephrology. 4. PVD-continue aspirin, Plavix. Patient has an intolerance to statins. 5. Type 2 diabetes mellitus-continue home metformin regimen at discharge. Hemoglobin A1c 6.1%. 6. Hypertension-stable, continue current regimen. 7. Bilateral BKA-Patient denies home-going needs. She is wheelchair-bound. General: Alert, Oriented x3, Cooperative HEENT: Atraumatic, PERRLA, EOMI, Normocephalic Neck: Supple, No JVD, Negative Carotid Bruits Lungs: Clear to auscultation, Normal air movement Cardiovascular: Regular rate, Regular Rhythm, Normal S1, Normal S2, No murmurs Abdomen: Bowel Sounds Present, Soft, Non Tender, Non-Distended Extremities: No clubbing, No cyanosis, No edema, Capillary Refill Less than 3 Seconds Skin: No rashes, No breakdown Musculoskeletal: No Tenderness to Palpation of Joints or Extremities, - - Bilateral BKA Neurological: Cranial nerves II-XII grossly intact, Neuro grossly intact Psych/Mental Status: Normal Affect, Appropriate Patient seen and examined prior to discharge. Physical assessment as noted above. Patient is stable for discharge home with recommendations as noted above. This patient was seen by DONNA Carranza under the supervision of Dr. Ruby. Discharge Diet: Carb Control Diet Discharge Activity: Return to Normal Activity Call your doctor if you observe: Fever of 101 or Higher, Shortness of breath, Dizziness, Fainting spells, Chest pain, Increased palpitations (irregular heartbeat) Home Medications: Medications to take at Discharge Enalapril Maleate [Vasotec] 10 mg PO DAILY 07/03/13 Gabapentin [Neurontin] 600 mg PO DAILY 07/03/13 Clopidogrel Bisulfate [Plavix] 75 mg PO DAILY 07/18/13 Fluoxetine [Prozac] 10 mg PO DAILY 02/08/14 Metformin HCl [Glucophage] 500 mg PO BID 10/20/17 Oxybutynin Chloride [Ditropan Xl] 15 mg PO DAILY 10/20/17 Aspirin [Aspirin, Baby] 81 mg PO DAILY@0800 #30 tab.chew 10/26/17 Hydrocodone Bitart/Apap 5-325 [[place] 5MG-325MG] 1 tab PO Q4H PRN PRN #30 tab 10/26/17 Metoprolol Tartrate [Lopressor (beta shelby)] 12.5 mg PO BID #60 tab 10/26/17 Pantoprazole Sodium [Protonix] 40 mg PO BID #60 tab 10/26/17 Following Prescrptions Were Given to Patient: Hydrocodone Bitart/Apap 5-325 [[place] 5MG-325MG] 1 tab PO Q4H PRN PRN #30 tab PRN Reason: Pain Aspirin [Aspirin, Baby] 81 mg PO DAILY@0800 #30 tab.chew Metoprolol Tartrate [Lopressor (beta shelby)] 12.5 mg PO BID #60 tab Pantoprazole Sodium [Protonix] 40 mg PO BID #60 tab Primary Care Physician: Jarret Clark MD [Primary Care Provider] - Please follow up with your Primary Care Physician in: 1-2 Weeks Please Follow Up With: Triston Denny MD When: 7-10 Days Please Follow Up With: Malachi Stephen MD When: 4 Weeks Please Follow Up With: Jarret Clark MD When: 1-2 WEEKS Patient Instructions: ED Nausea Vomiting Disposition: Home Minutes spent on discharge:: 35 Patient Condition:: Stable Meaningful Use Info Meaningful Use Diagnoses (Choose all that apply): None applicable
--- NOTE | 2017-10-26 10:34 | DS.PCM_ITS ---
Discharge Date and Diagnosis Date of Admission: 10/20/17 Date of Discharge: 10/26/17 - Primary Discharge Diagnosis Active and Suspected Problems 1. Acute blood loss anemia secondary to acute gastric ulcer-prepyloric with hemorrhage requiring 3 units packed red blood cell transfusion 2. Acute kidney injury on chronic kidney disease stage III 3. Non-ST segment elevation [place] - Secondary Discharge Diagnosis Chronic Problems DM2 (diabetes mellitus, type 2) (Chronic) Essential (primary) hypertension (Chronic) CAD/ischemic cardiomyopathy PVD Chronic kidney disease stage III Status post bilateral BKA Hospital Course and Treatment Dr. Stephen- Cardiology Dr. Schafer- Nephrology Dr. Denny- Surgery Operations: None Procedures: 2-D Echocardiogram, EGD Summary of Care Provided: Patient is a 67-year-old male admitted 10/20/2017 due to intractable nausea, vomiting. She has a past medical history of type 2 diabetes mellitus, hypertension, chronic kidney disease stage III, peripheral vascular disease, anemia of chronic disease, bilateral BKA. 1. Acute blood loss anemia secondary to acute hemorrhagic gastric ulcer- prepyloric on anemia of chronic disease-requiring 3 units blood transfusion. Hemoglobin now stable. Continue PPI twice daily. Patient underwent EGD with biopsy 10/25/2017 which demonstrated prepyloric gastric ulcer. She will need to discontinue meloxicam usage at discharge and continue twice daily PPI therapy until further reassessed by surgery. Patient received IV iron prior to discharge. She will follow-up with Dr. Aquino in 7-10 days. 2. Acute kidney injury on chronic kidney disease stage III-acutely suspected secondary to dehydration versus HEATHER inhibitor/meloxicam use. Suspected chronically due to diabetic neuropathy. Nephrology consulted during admission. She can continue outpatient follow-up. 3. CAD/non-ST segment elevation [place]/ischemic cardiomyopathy-cardiology consulted during admission. Patient is to continue medical therapy. Continue aspirin, Plavix, beta-shelby. Patient has a reported allergy to statins. Patient denies chest pain. Heart catheterization deferred given acute anemia and multiple comorbidities. Patient may require cardiac catheterization in the future. She will follow with cardiology as outpatient. Echocardiogram shows an estimated ejection fraction of 30-35%, moderate mitral valve insufficiency. Okay to restart HEATHER inhibitor at discharge per nephrology. 4. PVD-continue aspirin, Plavix. Patient has an intolerance to statins. 5. Type 2 diabetes mellitus-continue home metformin regimen at discharge. Hemoglobin A1c 6.1%. 6. Hypertension-stable, continue current regimen. 7. Bilateral BKA-Patient denies home-going needs. She is wheelchair-bound. General: Alert, Oriented x3, Cooperative HEENT: Atraumatic, PERRLA, EOMI, Normocephalic Neck: Supple, No JVD, Negative Carotid Bruits Lungs: Clear to auscultation, Normal air movement Cardiovascular: Regular rate, Regular Rhythm, Normal S1, Normal S2, No murmurs Abdomen: Bowel Sounds Present, Soft, Non Tender, Non-Distended Extremities: No clubbing, No cyanosis, No edema, Capillary Refill Less than 3 Seconds Skin: No rashes, No breakdown Musculoskeletal: No Tenderness to Palpation of Joints or Extremities, - - Bilateral BKA Neurological: Cranial nerves II-XII grossly intact, Neuro grossly intact Psych/Mental Status: Normal Affect, Appropriate Patient seen and examined prior to discharge. Physical assessment as noted above. Patient is stable for discharge home with recommendations as noted above. This patient was seen by DONNA Carranza under the supervision of Dr. Ruby. Discharge Diet: Carb Control Diet Discharge Activity: Return to Normal Activity Call your doctor if you observe: Fever of 101 or Higher, Shortness of breath, Dizziness, Fainting spells, Chest pain, Increased palpitations (irregular heartbeat) Home Medications: Medications to take at Discharge Enalapril Maleate [Vasotec] 10 mg PO DAILY 07/03/13 Gabapentin [Neurontin] 600 mg PO DAILY 07/03/13 Clopidogrel Bisulfate [Plavix] 75 mg PO DAILY 07/18/13 Fluoxetine [Prozac] 10 mg PO DAILY 02/08/14 Metformin HCl [Glucophage] 500 mg PO BID 10/20/17 Oxybutynin Chloride [Ditropan Xl] 15 mg PO DAILY 10/20/17 Aspirin [Aspirin, Baby] 81 mg PO DAILY@0800 #30 tab.chew 10/26/17 Hydrocodone Bitart/Apap 5-325 [[place] 5MG-325MG] 1 tab PO Q4H PRN PRN #30 tab Metoprolol Tartrate [Lopressor (beta shelby)] 12.5 mg PO BID #60 tab 10/26/17 Pantoprazole Sodium [Protonix] 40 mg PO BID #60 tab 10/26/17 Following Prescrptions Were Given to Patient: Hydrocodone Bitart/Apap 5-325 [[place] 5MG-325MG] 1 tab PO Q4H PRN PRN #30 tab PRN Reason: Pain Aspirin [Aspirin, Baby] 81 mg PO DAILY@0800 #30 tab.chew Metoprolol Tartrate [Lopressor (beta shelby)] 12.5 mg PO BID #60 tab Pantoprazole Sodium [Protonix] 40 mg PO BID #60 tab Primary Care Physician: Jarret Clark MD [Primary Care Provider] - Please follow up with your Primary Care Physician in: 1-2 Weeks Please Follow Up With: Triston Denny MD When: 7-10 Days Please Follow Up With: Malachi Stephen MD When: 4 Weeks Please Follow Up With: Jarret Clark MD When: 1-2 WEEKS Patient Instructions: ED Nausea Vomiting Disposition: Home Minutes spent on discharge:: 35 Patient Condition:: Stable Meaningful Use Info Meaningful Use Diagnoses (Choose all that apply): None applicable
[2017-10-26 11:36] LABS: Bedside Glucose 242 mg/dL (70-110)
--- NOTE | 2017-10-26 12:08 | PCM.PN.REN ---
Subjective: no new complaints - Physical Exam General: Alert, Oriented x3, Cooperative HEENT: Atraumatic, PERRLA, EOMI, Normocephalic Neck: Supple, No JVD, Negative Carotid Bruits Lungs: Clear to auscultation, Normal air movement Cardiovascular: Regular rate, No murmurs Abdomen: Bowel Sounds Present, Soft, Non Tender Extremities: No edema, Capillary Refill Less than 3 Seconds Skin: No rashes, No breakdown Musculoskeletal: No Tenderness to Palpation of Joints or Extremities Neurological: Cranial nerves II-XII grossly intact Psych/Mental Status: Normal Affect, Appropriate Vital Signs Temp Pulse Resp BP Pulse Ox 98.3 F 62 18 100/53 L 93 10/26/17 07:40 10/26/17 12:00 10/26/17 07:40 10/26/17 07:44 10/26/17 07:40 Oxygen Flow Rate 2 Oxygen Delivery Method Room Air Weight: 74.4 kg Body Mass Index (BMI) 25.9 Intake and Output for Last 24 Hours 10/24/17 10/25/17 10/26/17 23:59 23:59 23:59 Intake Total 1642 / 1642 2745 / 2745 250 / 250 Output Total 0 / 0 Balance 1642 / 1642 2745 / 2745 250 / 250 Laboratory Tests Past 24 Hrs 10/26/17 10/26/17 05:25 05:25 WBC 7.5 RBC 2.95 L Hgb 8.7 L Hct 26.3 L MCV 89.2 MCH 29.5 MCHC 33.1 RDW 15.4 H RDW Differential 48.1 H Plt Count 291 MPV 10.2 Sodium 136 Potassium 4.7 Chloride 109 H Carbon Dioxide 17.0 L Anion Gap 10 BUN 34 H Creatinine 1.56 H Estim Creat Clear Calc 32.31 Est GFR (MDRD) Af Amer 42 L Est GFR (MDRD) Non-Af 35 L BUN/Creatinine Ratio 21.8 H Glucose 111 H Calcium 7.9 L POC Glucose 10/26/17 10/26/17 10/25/17 11:10 06:47 21:17 POC Glucose 242 H 114 H 303 H 10/25/17 16:04 POC Glucose 129 H Assessment/Plan CKD stage 3 RIK Creatinine is about the same as yesterday. ok to dc today. will arrange f/u as outpatient Anemia. secondary to iron deficiency. received IV Iron NSTEMI. cardiology following
== END 2017-10-26 18:20 | disposition home or self-care (01) | DRG 377 ==
LOC: ED 09:02 → MS3 09:10 → ICU 10-21 10:32 → PCU 10-24 12:52
PROVIDERS: Emergency Medicine; Family Medicine; Internal Medicine Cardiovascular Disease; Internal Medicine Nephrology; Nurse Practitioner Family; Surgery; Admitting Provider Internal Medicine; Emergency Provider Emergency Medicine; Family Provider Family Medicine; PCP Family Medicine; Visit Provider Internal Medicine
PROC: 0DJ08ZZ Inspection of Upper Intestinal Tract, Via Natural or Artificial Opening Endoscopic (ICD-10-PCS; CPT 43235; principal; 2017-10-25 14:25)
DX: K25.0 Acute gastric ulcer with hemorrhage (principal); I21.4 Non-ST elevation (NSTEMI) myocardial infarction; N17.9 Acute kidney failure, unspecified; E87.2 Acidosis; D62 Acute posthemorrhagic anemia; Z89.512 Acquired absence of left leg below knee; E11.22 Type 2 diabetes mellitus with diabetic chronic kidney disease; N18.3 Chronic kidney disease, stage 3 (moderate); I12.9 Hypertensive chronic kidney disease with stage 1 through stage 4 chronic kidney disease, or unspecified chronic kidney disease; E86.0 Dehydration; I25.5 Ischemic cardiomyopathy; I73.9 Peripheral vascular disease, unspecified; D63.8 Anemia in other chronic diseases classified elsewhere; Z99.3 Dependence on wheelchair; Z89.511 Acquired absence of right leg below knee; Z79.84 Long term (current) use of oral hypoglycemic drugs
CPT/HCPCS: 36415; 80048; 80069; 80076; 81001; 82009; 82607; 82746; 82962; 83540; 83550; 83605; 83690; 83735; 84484; 85014; 85018; 85025; 85027; 85045; 85610; 85730; 86850; 86900; 86920; 86922; 87633; 87641; 88305; 88312; 88342; 93005; 93306; 99285; J1756; J7030; J7040; J7050; P9016; A4216; J1940; J2405

== ENCOUNTER 2017-11-04 13:21 | Inpatient (IN) | payer MEDICARE, OTHER, SELFPAY ==
[2017-11-04] VITALS (10 sets, daily range): BP systolic 107–155; BP diastolic 46–95; PULSE 73–86; RESP 13–17; TEMP 36.1–37; O2SAT 96–100; BMI 33.4
--- NOTE | 2017-11-04 13:26 | RAD_ITS ---
STUDY: X-RAY CHEST REASON FOR EXAM: Female, 67 years old. Weakness. Recent SC. TECHNIQUE: Single AP portable view of the chest. COMPARISON: None. FINDINGS: EKG electrodes are seen. The lungs are clear and expanded. There is no demonstrated pleural abnormality. There is borderline cardiomegaly. Normal mediastinum and junior. Normal visualized pulmonary arteries. There is atherosclerotic calcification of the aortic arch with tortuosity. There are diffuse degenerative changes of the visualized thoracic spine. Normal visualized ribs, clavicles, and shoulders. There is no demonstrated abnormality of the visualized soft tissue structures of the upper abdomen. RAD/Chest 1 View (Portable) IMPRESSION: Borderline cardiomegaly. Electronically Signed: Antwon Germain MD at 15:05 EST Tel [phone], Service support ,
--- NOTE | 2017-11-04 13:26 | EKG12_ITS ---
Test Reason : WEAKNESS Blood Pressure : / mmHG Vent. Rate : 079 BPM Atrial Rate : 079 BPM P-R Int : 174 ms QRS Dur : 088 ms QT Int : 460 ms P-R-T Axes : 100 048 153 degrees QTc Int : 527 ms Normal sinus rhythm ST & Marked T wave abnormality, consider anterolateral ischemia Prolonged QT Abnormal ECG Confirmed by DIMAS JOHNSON, SAUNDRA ([id number]), editor sound TEVIN DE LA ROSA ([id number]) on 11/08/2017 3:52:38 PM Referred By: EAN Confirmed By:SAUNDRA COCHRAN MD
--- NOTE | 2017-11-04 13:48 | ED.DCSUM_ITS ---
- ER Visit Summary Date of Service: 11/04/17 Chief Complaint: [] Generalized weakness unable to get out of bed History of Present Illness: The patient is a 67 F [] had a recent NH, history of diabetes hypertension AKA, and has been laying in bed for about a week caregivers cannot manage her and she was brought in for evaluation the patient states she has generalized weakness she is extremely fatigued she has skin breakdown and grade 1 ulcerations to the right hip back region as she has been laying on that side, she denies fever cough chest pain or abdominal pain but does report generalized weakness, she was unable to void and Cheatham catheter was placed as productive of thick yellow urine, again she is awake alert answering questions Physical Examination: [] Afebrile her vital signs are within normal range her blood pressure is 115/80 her mucous membranes are dry her neck is supple her lungs and heart tones are unremarkable the abdomen soft and nontender to the right buttock right lower back hip area there is a grade 1 excoriations to her skin, the rectal area is unremarkable she has AKA amputations are unremarkable neurologically she is awake alert moving all 4 complaint of diffuse fatigue Test Results: [] Emergency Department Course and Treatment: [] Evaluation revealed EKG that showed diffuse T-wave changes present on prior EKG creatinine slightly elevated 1.4 troponin 0 0.10 these are relatively chronic chronic please see the prior reports chest x-ray unremarkable, Cheatham catheter was again productive of thick yellow foul appearing urine and UA did show signs of UTI urine culture sent IV Cipro started, fluid started Caretakers are unable to manage her at home any longer she will likely require ultimate skilled nursing placement I spoke with the hospitalist, spoke with elementary school social worker and she will be admitted for further management Treatment Plan: [] Disposition: [] Stable admit Impression: [] Generalized weakness, urinary tract infection, stage I pressure ulcers right back, recent NH This note was generated with [employer] dictation software. It may contain incorrect words, spelling, and punctuation that were not noted in review of the chart prior to signing ED Disposition - Plan for ED Patient: Chief Complaint: Weakness Referrals: Jarret Clark MD [Primary Care Provider] -
--- NOTE | 2017-11-04 14:08 | CM.ED ---
CNONER referred to see patient due to living conditions and lack of self-care.RN was currently providing care to the patient. I spoke with Janeth Chandra, patient's POA and friend. Janeth stated that the patient was admitted to [facility] with a diagnosis of MS and ulcer around 2016. Janeth stated that the patient told her she was sent home to and refused to see her PCP. Janeth states that patient has refused to eat stating I don't feel good. Janeth states that, for the past two days, the patient has not moved out of her bed and was found covered in urine and feces. Janeth states that the patient said I don't care anymore. POA paperwork was provided by Janeth Chandra. Copies will be scanned into the E-Chart and returned to [facility]. Of note, Janeth states the patient has two sisters who live in [place] and a niece. No children. Per Herminia, family is not involved. ED Provider updated and anticipate that the patient will not be discharging today. Social work will follow-up with seeing the patient tomorrow and planning for safe discharge. Cynthia BUCKNER, RN [facility]
[2017-11-04 14:27] LABS: Mucous, Urine 0 SEEN /hpf (<or=2+)
[2017-11-04 14:29] LABS: Absolute Lymphocyte Count 1.36 X10^3/ul (0.83-4.51); Absolute Neutrophil Count 8.3 X10^3/uL (2.0-7.7); Basophil# 0.03 X10^3/uL; Basophil% 0.3 % (0-1); Eosinophil# 0.34 X10^3/uL; Eosinophils% 3.2 % (0-5); Hematocrit 39.9 % (37-47); Hemoglobin 13.5 g/dl (12.0-15.0); Lymphocyte # 1.36 X10^3/ul (4.0); Lymphocyte % 12.9 % (19-41); Mean Corp Hgb Conc 33.8 g/gl (32-36); Mean Corpuscular Volume 85.6 fL (81-99); Mean Platelet Vol. 9.6 fl (6.2-12.0); Monocyte# 0.53 X10^3/uL; Neutrophil # 8.29 X10^3/uL (2.7-7.7); Neutrophil % 78.5 % (47-70); Platelet Count 375 K/mm3 (150-450); RBC Distribution Width CV 14.7 % (11.6-14.6); RBC Distribution Width SD 46.1 fl (35.1-43.9); Red Blood Count 4.66 M/mm3 (4.2-5.4); White Blood Count 10.6 K/mm3 (4.4-11.0)
[2017-11-04 14:30] LABS: Color, Urine Yellow (Yellow); Glucose, Dipstick Normal (Normal); Ketone-Dipstick 50 mg/dl (Negative); Leukocyte Esterase-Dipstick 500 /ul (Negative); Nitrite-Dipstick Negative (Negative); Occult Blood-Urine 50 /ul (Negative); Protein-Dipstick 100 mg/dl (Negative); Urine Bilirubin Dipstick Negative (Negative); Urine Clarity Sl. Cloudy (Clear); Urine Urobilinogen Normal (Normal)
[2017-11-04 14:31] LABS: POSITIVE COUNT NO; POSITIVE DIFFERENTIAL NO; POSITIVE MORPHOLOGY NO
[2017-11-04 14:36] LABS: Bacteria 2+ /hpf (None Seen); Red Blood Cells-Urine 0-5 SEEN /hpf (0-5); Squamous Epithelial Cells - UA 0-5 SEEN /hpf (5-10); White Blood Cells 25-50 SEEN /hpf (0-5)
[2017-11-04 14:52] LABS: AST(SGOT) 22 U/L (15-37); Alanine Aminotransfer ALT/SGPT 15 U/L (13-56); Albumin, Serum 3.2 g/dL (3.2-5.0); Alkaline Phosphatase 102 U/L (45-117); Anion Gap 13 (5-15); BUN 29 mg/dL (7-18); BUN/Creat Ratio 19.5 RATIO (10-20); Bilirubin, Direct 0.09 mg/dL (0.00-0.30); Calcium,Total 8.5 mg/dL (8.5-10.1); Chloride 103 mmol/L (98-107); Creatinine, Serum 1.49 mg/dL (0.55-1.02); EST Glomerular Filtration Rate 37 mL/min (>60); Est Glom Filt Rate - Afr Amer 45 mL/min (>60); Estimated Creatinine Clearance 38.34 ml/min; Globulin 4.5 g/dL (2.2-4.2); Glucose 114 mg/dL (70-110); Lipase 153 U/L (73-393); Potassium 4.1 mmol/L (3.5-5.1); Protein, Total 7.7 g/dL (6.4-8.2); Sodium Level 135 mmol/L (136-145)
--- NOTE | 2017-11-04 15:50 | NURSING ---
talked w/ Dr. Walden discussed BNP/ and trop. aware he changing orders to PCU.
--- NOTE | 2017-11-04 16:37 | PCM.HP.STD ---
Problem List (1) Generalized weakness Status: Acute (2) DM2 (diabetes mellitus, type 2) Status: Chronic (3) Nausea & vomiting Status: Resolved (4) RIK (acute kidney injury) Status: Resolved (5) Essential (primary) hypertension Status: Chronic (6) NSTEMI (non-ST elevated myocardial infarction) Status: Resolved (7) CKD stage 3 due to type 2 diabetes mellitus Status: Acute (8) Dehydration Status: Acute History of Present Illness Date of Admission: 11/04/17 Chief Complaint: Generalized weakness for 1 week The patient is a 67 year old F with multiple comorbidities as listed above who was recently admitted between October 20- 2017 for acute blood loss anemia, acute kidney injury, non-STEMI came to ER with generalized weakness for last 1 week. She also has diabetes mellitus and bilateral knee amputation and has poor functional capacity. He has been on the bed for about 1 week and her neighbors take care of her. She has a rash on abdominal fold of the skin, groin region and on the back. She also has stage I decubitus ulcer on the right buttock/sacral region. [] In ED, her blood work is at baseline but BNP 1768 and troponin 0 0.1. She denies chest pain, shortness of breath/near syncope. Vitals in the ER 96% on room air and, temperature 99.3?F Past Medical History Past Medical History (Chronic Problems): Chronic Problems DM2 (diabetes mellitus, type 2) (Chronic) Essential (primary) hypertension (Chronic) Allergies allopurinol Allergy (Verified 11/04/17 13:28) Unknown bacitracin Allergy (Verified 11/04/17 13:28) Unknown gemfibrozil [Gemfibrozil] Allergy (Verified 11/04/17 13:28) Unknown gentamicin [Gentamicin] Allergy (Verified 11/04/17 13:28) Unknown Penicillins Allergy (Verified 11/04/17 13:28) Unknown pentoxifylline Allergy (Verified 11/04/17 13:28) Unknown pioglitazone Allergy (Verified 11/04/17 13:28) Unknown pioglitazone HCl [From Actos] Allergy (Verified 11/04/17 13:28) Unknown tramadol HCl [From Ultram] Allergy (Verified 11/04/17 13:28) Unknown simvastatin Adverse Reaction (Verified 11/04/17 13:28) Pain in joints Home Medications: Ambulatory Orders Medication Instructions Recorded Enalapril Maleate [Vasotec] 10 mg PO DAILY 07/03/13 Gabapentin [Neurontin] 600 mg PO BID 07/03/13 Clopidogrel Bisulfate [Plavix] 75 mg PO DAILY 07/18/13 Fluoxetine [Prozac] 10 mg PO DAILY 02/08/14 Metformin HCl [Glucophage] 500 mg PO DAILY 10/20/17 Oxybutynin Chloride [Ditropan Xl] 15 mg PO DAILY 10/20/17 Hydrocodone Bitart/Apap 5-325 1 tab PO Q4H PRN PRN #30 tab 10/26/17 [Seymour 5MG-325MG] Metoprolol Tartrate [Lopressor 12.5 mg PO BID #60 tab 10/26/17 (beta shelby)] Pantoprazole Sodium [Protonix] 40 mg PO BID #60 tab 10/26/17 Aspirin 325 mg PO DAILY@0800 11/04/17 Meloxicam 15 mg PO DAILY 11/04/17 Surgical History: - - Bilateral BKA, previous endovascular interventions for severe peripheral vascular disease Smoking Status: Former smoker - *Family History Maternal History Items: No pertinent history Review of Systems Constitutional: Reports: Malaise, Weakness, Fatigue. Denies: Fever HEENT: Denies: Head Aches, Sinus Congestion, Sinus Drainage Cardiovascular: Denies: Chest Pain, Chest Pressure, Chest Tightness, Palpitations Respiratory: Denies: Cough, Shortness of breath at rest, Sputum production Gastrointestinal: Denies: Abdominal Pain, Nausea, Vomiting Genitourinary: Denies: Dysuria Musculoskeletal: Reports: Joint Pain, Muscle pain, - - Bilateral BKA. Denies: Joint Tenderness Skin: Reports: Rash, Skin Changes Neurological: Denies: Numbness, Tingling, Focal weakness Psychiatric: Denies: Anxiety, Depression, Homicidal Ideations, Suicidal Ideations Hematologic/ Lymphatic: Reports: Easy Bruising. Denies: Easy Bleeding VTE Information - Inpt Only VTE Present on Admission: No VTE Mechan Device Prophylaxis: SCD's VTE Pharm Prophylaxis ordered?: Yes Patient Problems: Active and Suspected Problems Generalized weakness (Acute) CKD stage 3 due to type 2 diabetes mellitus (Acute) Dehydration (Acute) - Physical Exam General: Alert, Oriented x3, Cooperative, - - Dehydrated HEENT: Atraumatic, PERRLA, EOMI, Normocephalic Oral: Dry Mucosa Neck: Supple, No JVD, Negative Carotid Bruits Lungs: Clear to auscultation, No rhonchi, No wheeze, No rales, Diminished Cardiovascular: Regular rate, Regular Rhythm, Normal S1, Normal S2, No murmurs Abdomen: Bowel Sounds Present, Soft, Non Tender, Non-Distended, No Hepato-splenomegaly, - - Hard lumps felt on the abdomen Extremities: No edema, Capillary Refill Less than 3 Seconds Skin: No rashes, No breakdown, Rash Present - Multiple pinpoint, petechial-like rash present over lower back, both buttocks area and groin region. There is no open ulcer or wound but seems non-blanching erythema, suggestive of stage I decubitus ulcer Musculoskeletal: Arthritic Changes, Muscle Wasting, Tenderness - Generalized tenderness over lower extremities, - - Bilateral BKA Neurological: Cranial nerves II-XII grossly intact Psych/Mental Status: Normal Affect, Appropriate Vital Signs Temp Pulse Resp BP Pulse Ox 98.6 F 84 16 124/95 H 100 11/04/17 13:45 11/04/17 15:22 11/04/17 15:22 11/04/17 15:22 11/04/17 15:22 Assessment/Plan Active and Suspected Problems Generalized weakness (Acute) CKD stage 3 due to type 2 diabetes mellitus (Acute) Dehydration (Acute) The patient is a 67 year old F with multiple comorbidities as listed above who was recently admitted between October 20- 2017 for acute blood loss anemia, acute kidney injury, non-STEMI came to ER with generalized weakness for last 1 week. She also has diabetes mellitus and bilateral knee amputation and has poor functional capacity. He has been on the bed for about 1 week and her neighbors take care of her. She has a rash on abdominal fold of the skin, groin region and on the back. She also has stage I decubitus ulcer on the right buttock/sacral region. [] In ED, her blood work is at baseline but BNP 1768 and troponin 0.1. She denies chest pain, shortness of breath/near syncope. Vitals in the ER 96% on room air and, temperature 99.3?F. 1. Generalized weakness with physical decline with erythematous rash over buttocks, perineal and sacral region possible from feces and urine: Patient is being admitted on the regular [facility] floor. IV fluid normal saline. PT and OT ordered. Wound care nurse consult. On antifungal cream 2. Mildly elevated troponin and BNP: Patient does not seem to be in acute heart failure or fluid overload. Elevated troponin, etiology unclear. Recent non-STEMI with acute blood loss anemia secondary to acute gastric ulcerprepyloric with hemorrhage: Patient was admitted last time and required 3 units of PRBC. Executor Of Estate was consulted last time and heart catheterization was deferred secondary to anemia and multiple comorbidities. Patient had echo in October 2017 which showed EF 30-35% with moderate MR. 3. chronic systolic heart failure, Coronary artery disease with ischemic cardiomyopathy: As mentioned above. The patient is currently dehydrated hold her diuretics. 4 CKD stage III secondary to diabetic nephropathy and peripheral vascular disease: Fluid normal saline. Hold her diuretic agents. 5 Diabetic mellitus type II complicated with peripheral vascular disease, foot ulcer status post BKA: Accu-Chek before meals and at bedtime and cover with NovoLog sliding scale. 5. Chronic constipation with possible fecaliths: Abdominal and pelvic x-ray ordered. Stool softener. Might need an MRI if she does not have bowel movement. Functional decline with poor mobility: Patient will need SNF placement. Co Director consult. Advanced directive: Patient has living will which shows DNR CC arrest. As per living will, patient does not want aggressive measures. Code Visit Inpatient E&M: 88400 Init Hosp L3
--- NOTE | 2017-11-04 17:30 | RAD_ITS ---
STUDY: X-RAY - ABDOMEN/PELVIS REASON FOR EXAM: Female, 67 years old. Constipation. Decubitus ulcers. TECHNIQUE: Supine and left lateral decubitus views of the abdomen were performed. COMPARISON: None. FINDINGS: Normal visualized lung bases. Air is seen throughout the colon. Questionable air in nondistended small bowel loops in left midabdomen. There is evidence of air-fluid levels. There is no demonstrated free abdominal air. The visualized liver, spleen and kidneys are grossly normal in size and morphology. Normal soft tissue structures. Normal visualized osseous structures. RAD/Abd Inc Decub and/or Erect IMPRESSION: Nonspecific bowel gas pattern. Electronically Signed: Ayush Enriquez DO at 18:16 EST Tel [phone], Service support ,
[2017-11-04] MEDS: Enoxaparin 30 MG/0.3 ML Syringe SC (17:56)
[2017-11-04] MEDS: 0.9% Normal Saline 1,000 ML 100 ML IV (17:57)
[2017-11-04 17:58] LABS: Magnesium 1.7 mg/dL (1.6-2.6)
[2017-11-04] MEDS: Hydrocortisone 2.5% Crm 1 APPLIC TOPICAL (21:49)
[2017-11-04] MEDS: Senna/Docusate Sodium 1 Tablet 2 TABLET PO (21:50)
[2017-11-04] MEDS: Menthol/Lanolin/Calamine/Znox 113 GM Tube 1 APPLIC TOPICAL (21:50)
[2017-11-04] MEDS: Ciprofloxacin 200 MG/100 ML BAG 100 MG IV (21:51)
[2017-11-04] MEDS: Glucerna Shake 120 ML LIQUID PO (21:51)
[2017-11-04] MEDS: Metoprolol Tartrate 25 MG Tablet 12.5 MG PO (21:51)
[2017-11-04] MEDS: Pantoprazole Sodium 40 MG Tablet PO (21:52)
[2017-11-04] MEDS: Gabapentin 600 MG Tablet PO (21:52)
[2017-11-04] MEDS: HYDROcodone Bitartrate/Apap 5/325 Tablet PO (23:00)
[2017-11-04] MEDS: MELATONIN 10 MG TABLET 5 MG PO (23:01)
[2017-11-05] VITALS (15 sets, daily range): BP systolic 72–126; BP diastolic 44–54; PULSE 48–97; RESP 14–16; TEMP 36.2–37; O2SAT 98–99
[2017-11-05 04:21] LABS: Bedside Glucose 169 mg/dL (70-110)
[2017-11-05 07:11] LABS: Bedside Glucose 161 mg/dL (70-110)
[2017-11-05 07:11] LABS: Hematocrit 29.8 % (37-47); Mean Corp Hgb Conc 33.6 g/gl (32-36); Mean Corpuscular Hgb 29.2 pg (27.0-32.0); Mean Corpuscular Volume 86.9 fL (81-99); Mean Platelet Vol. 9.8 fl (6.2-12.0); Platelet Count 285 K/mm3 (150-450); RBC Distribution Width CV 14.5 % (11.6-14.6); RBC Distribution Width SD 44.8 fl (35.1-43.9); Red Blood Count 3.43 M/mm3 (4.2-5.4); White Blood Count 6.8 K/mm3 (4.4-11.0)
[2017-11-05 07:33] LABS: Scan Indicated on CBC? Y/N NO
[2017-11-05 08:09] LABS: BUN 29 mg/dL (7-18); Creatinine, Serum 1.44 mg/dL (0.55-1.02); Estimated Creatinine Clearance 38.49 ml/min; Glucose 133 mg/dL (70-110)
[2017-11-05 08:10] LABS: Anion Gap 10 (5-15); BUN/Creat Ratio 20.1 RATIO (10-20); Calcium,Total 7.6 mg/dL (8.5-10.1); Chloride 107 mmol/L (98-107); EST Glomerular Filtration Rate 38 mL/min (>60); Est Glom Filt Rate - Afr Amer 47 mL/min (>60); Potassium 4.1 mmol/L (3.5-5.1); Sodium Level 136 mmol/L (136-145)
--- NOTE | 2017-11-05 09:27 | CASEMGMT ---
Chart review completed at this time. Pt was just admitted within the last month. Please see CM assessmen from 10/22/2017 completed by Sydni REID CM. Referral to Jesenia HUERTA at this time for possible SNF placement and psychosocial assessment, voices understanding. CM to follow for any further needs. Yajaira REID CM
[2017-11-05] MEDS: Menthol/Lanolin/Calamine/Znox 113 GM Tube 1 APPLIC TOPICAL ×2 (10:00→21:42)
--- NOTE | 2017-11-05 10:18 | CASEMGMT ---
Addendum entered by Andreea Cordoba 11/05/17 10:30: SW left a message for Herminia Chandra, patient's POA. Andreea ARIZMENDI Original Note: SW reviewed chart. Met with patient, introduced self as well as role at [facility]. Patient said she is depressed. She said she normally does not feel this depressed. She said she came into the hospital recently and they told her she had a heart attack. She said she went home and didn't care. SW talked with her about someone from [facility] Behavioral [facility] coming to talk with her. She reluctantly agreed. SW then talked with her about d/c plan. she said she prefers to go back home. SW told her that we do not feel that would be the safest plan for her at this time. She has been to [facility], but would prefer to go somewhere else. She gave SW permission to talk with her POA. SW to call her POA. Andreea ARIZMENDI
--- NOTE | 2017-11-05 10:45 | NURSING ---
was asked to see patient for redness to bilateral buttocks. No pressure injuries noted. There is some redness noted to the rosalie-rectal area. pt was found to be sitting in urine/feces prior to admission. there is a rugburn type area to the right hip area that is dry and scabbed. no signs of infection noted. applied calmoseptine to the rosalie-rectal area. will monitor as needed.
[2017-11-05] MEDS: Ciprofloxacin 200 MG/100 ML BAG 100 MG IV (10:53)
[2017-11-05] MEDS: Hydrocortisone 2.5% Crm 1 APPLIC TOPICAL ×2 (10:53→21:41)
[2017-11-05] MEDS: Tolterodine Tartrate 4 MG CAP.SA PO (10:54)
[2017-11-05] MEDS: Aspirin 325 MG Tablet PO (10:54)
[2017-11-05] MEDS: Pantoprazole Sodium 40 MG Tablet PO ×2 (10:55→21:40)
[2017-11-05] MEDS: Gabapentin 600 MG Tablet PO ×2 (10:55→21:40)
[2017-11-05] MEDS: Clopidogrel Bisulfate 75 MG Tablet PO (10:55)
[2017-11-05] MEDS: Senna/Docusate Sodium 1 Tablet 2 TABLET PO ×2 (10:56→21:40)
[2017-11-05] MEDS: FLUoxetine 10 MG Capsule PO (10:56)
[2017-11-05] MEDS: Enoxaparin 30 MG/0.3 ML Syringe SC (10:56)
[2017-11-05] MEDS: Glucerna Shake 120 ML LIQUID PO ×3 (11:03→16:56)
[2017-11-05] MEDS: 0.9% NaCl Peripheral Flush Adult/Peds IV (11:04)
--- NOTE | 2017-11-05 11:29 | PCM.PROGNOTE ---
Patient Problems: Active and Suspected Problems Generalized weakness (Acute) CKD stage 3 due to type 2 diabetes mellitus (Acute) Dehydration (Acute) Subjective: Patient seen and examined. Flat affect. When patient was asked what is wrong she stated everything. She states she is tired and not willing to participate in conversation at this time. Denies other complaints. She conveyed to social work that she is depressed. She is also agreeable to long term facility at discharge given she has not been able to care for herself at home. - Physical Exam General: Alert, No apparent distress HEENT: Atraumatic, PERRLA, EOMI, Normocephalic Oral: Dry Mucosa Neck: Supple, No JVD, Negative Carotid Bruits Lungs: Clear to auscultation, Diminished Cardiovascular: Regular rate, Regular Rhythm, Normal S1, Normal S2, No murmurs Abdomen: Bowel Sounds Present, Soft, Non Tender, Non-Distended Extremities: No clubbing, No cyanosis, No edema, Capillary Refill Less than 3 Seconds Skin: - - Stage I decubitus ulcer buttocks, no noted open areas. Musculoskeletal: No Tenderness to Palpation of Joints or Extremities, - - Bilateral BKA Neurological: Cranial nerves II-XII grossly intact, Neuro grossly intact Psych/Mental Status: Flat Affect, Depressed Vital Signs Temp Pulse Resp BP Pulse Ox 97.8 F 49 L 16 98/54 L 98 11/05/17 08:10 11/05/17 10:55 11/05/17 08:10 11/05/17 10:55 11/05/17 08:10 Oxygen Flow Rate 2 Oxygen Delivery Method Room Air Weight: 65.2 kg Body Mass Index (BMI) 33.4 Intake and Output for Last 24 Hours 11/03/17 11/04/17 11/05/17 23:59 23:59 23:59 Intake Total 220 / 220 1463 / 1463 Output Total 650 / 650 Balance 220 / 220 813 / 813 Laboratory Tests Past 24 Hrs 11/04/17 11/04/17 11/05/17 17:20 21:01 01:06 WBC RBC Hgb Hct MCV MCH MCHC RDW RDW Differential Plt Count MPV Sodium Potassium Chloride Carbon Dioxide Anion Gap BUN Creatinine Estim Creat Clear Calc Est GFR (MDRD) Af Amer Est GFR (MDRD) Non-Af BUN/Creatinine Ratio Glucose Calcium Magnesium 1.7 Troponin I 0.10 H 0.12 H 0.11 H 11/05/17 11/05/17 06:50 06:50 WBC 6.8 RBC 3.43 L Hgb 10.0 L Hct 29.8 L MCV 86.9 MCH 29.2 MCHC 33.6 RDW 14.5 RDW Differential 44.8 H Plt Count 285 MPV 9.8 Sodium 136 Potassium 4.1 Chloride 107 Carbon Dioxide 19.0 L Anion Gap 10 BUN 29 H Creatinine 1.44 H Estim Creat Clear Calc 38.49 Est GFR (MDRD) Af Amer 47 L Est GFR (MDRD) Non-Af 38 L BUN/Creatinine Ratio 20.1 H Glucose 133 H Calcium 7.6 L Magnesium Troponin I 0.10 H POC Glucose 11/05/17 11/05/17 07:05 04:00 POC Glucose 161 H 169 H Assessment/Plan Active and Suspected Problems Generalized weakness (Acute) CKD stage 3 due to type 2 diabetes mellitus (Acute) Dehydration (Acute) Patient is a 67-year-old female admitted 11/04/17 due to generalized weakness for 1 week. She was recently admitted October 20-2017 for acute blood loss anemia, acute kidney injury and non-STEMI. Patient was reported to have been in bed for approximately 1 week with neighbors checking on her and she was reported to be found covered in urine and feces. She has a past medical history of type 2 diabetes mellitus, hypertension, chronic kidney disease stage III, peripheral vascular disease, anemia of chronic disease, bilateral BKA. 1. Generalized weakness with physical decline-patient has bilateral BKA and has difficulty caring for self at home. Patient has stage I decubitus ulcer of the buttocks secondary to patient lying in bed for the past week. PT/OT. SW discussed SNF placement with patient and she is agreeable. Wound RN consulted. Nutrition/Fire Sprinkler Installer consult. Patient admits to depression. Behavioral health consulted. 2. Chronic kidney disease stage III-stable, monitor BMP. Follows with nephrology as outpatient. Patient was mildly dehydrated on admission and received IV fluids which have since been discontinued. 3. CAD/recent non-ST segment elevation LA/ischemic cardiomyopathy/chronic CHF-cardiology consulted during recent admission for non-STEMI. She was to continue medical management and follow-up as outpatient for possible heart catheterization in the future. Troponin mildly elevated during admission with a peak of 0.12. Previous troponin on recent admission 10/21/2017, troponin 37.10. Patient denies chest pain. Recent echocardiogram showed an estimated ejection fraction of 30-35%, moderate mitral valve insufficiency. Continue aspirin, Plavix, beta-shelby, HEATHER inhibitor. BNP on admission 1768. No signs of fluid overload. 4. Acute UTI-UA positive, urine culture pending. Patient has Cheatham catheter in place. She was started on Cipro IV. 5. PVD-continue aspirin, Plavix. Patient has an intolerance to statins. 6. Type 2 diabetes mellitus-Hemoglobin A1c 6.1% in 2012. Re-check HA1C. ADA diet. Accu-Cheks before meals at bedtime with sliding scale insulin. 7. Hypertension-stable, continue current regimen. 8. Depression-continue home Prozac regimen. Behavior health consulted. 9. Chronic pjlnoxsalccc-h-tad of abdomen shows nonspecific bowel gas pattern. Continue current bowel regimen. 10. Recent admission for acute blood loss anemia secondary to acute hemorrhagic gastric ulcer-patient was started on PPI twice daily which we will continue. She is to follow-up with Dr. Aquino in 7-10 days which she has not completed. She was also instructed to discontinue meloxicam which she has not done. CBC stable. Discharge planning- Plan for DC to SNF. DVT prophylaxis- Lovenox SC This patient was seen by DONNA Carranza under the supervision of Dr. Montilla.
--- NOTE | 2017-11-05 11:45 | PN_ITS ---
Patient Problems: Active and Suspected Problems Generalized weakness (Acute) CKD stage 3 due to type 2 diabetes mellitus (Acute) Dehydration (Acute) Subjective: Patient seen and examined. Flat affect. When patient was asked what is wrong she stated everything. She states she is tired and not willing to participate in conversation at this time. Denies other complaints. She conveyed to social work that she is depressed. She is also agreeable to halfway facility at discharge given she has not been able to care for herself at home. - Physical Exam General: Alert, No apparent distress HEENT: Atraumatic, PERRLA, EOMI, Normocephalic Oral: Dry Mucosa Neck: Supple, No JVD, Negative Carotid Bruits Lungs: Clear to auscultation, Diminished Cardiovascular: Regular rate, Regular Rhythm, Normal S1, Normal S2, No murmurs Abdomen: Bowel Sounds Present, Soft, Non Tender, Non-Distended Extremities: No clubbing, No cyanosis, No edema, Capillary Refill Less than 3 Seconds Skin: - - Stage I decubitus ulcer buttocks, no noted open areas. Musculoskeletal: No Tenderness to Palpation of Joints or Extremities, - - Bilateral BKA Neurological: Cranial nerves II-XII grossly intact, Neuro grossly intact Psych/Mental Status: Flat Affect, Depressed Vital Signs Temp Pulse Resp BP Pulse Ox 97.8 F 49 L 16 98/54 L 98 11/05/17 08:10 11/05/17 10:55 11/05/17 08:10 11/05/17 10:55 11/05/17 08:10 Oxygen Flow Rate 2 Oxygen Delivery Method Room Air Weight: 65.2 kg Body Mass Index (BMI) 33.4 Intake and Output for Last 24 Hours 11/03/17 11/04/17 11/05/17 23:59 23:59 23:59 Intake Total 220 / 220 1463 / 1463 Output Total 650 / 650 Balance 220 / 220 813 / 813 Laboratory Tests Past 24 Hrs 11/04/17 11/04/17 11/05/17 17:20 21:01 01:06 WBC RBC Hgb Hct MCV MCH MCHC RDW RDW Differential Plt Count MPV Sodium Potassium Chloride Carbon Dioxide Anion Gap BUN Creatinine Estim Creat Clear Calc Est GFR (MDRD) Af Amer Est GFR (MDRD) Non-Af BUN/Creatinine Ratio Glucose Calcium Magnesium 1.7 Troponin I 0.10 H 0.12 H 0.11 H 11/05/17 11/05/17 06:50 06:50 WBC 6.8 RBC 3.43 L Hgb 10.0 L Hct 29.8 L MCV 86.9 MCH 29.2 MCHC 33.6 RDW 14.5 RDW Differential 44.8 H Plt Count 285 MPV 9.8 Sodium 136 Potassium 4.1 Chloride 107 Carbon Dioxide 19.0 L Anion Gap 10 BUN 29 H Creatinine 1.44 H Estim Creat Clear Calc 38.49 Est GFR (MDRD) Af Amer 47 L Est GFR (MDRD) Non-Af 38 L BUN/Creatinine Ratio 20.1 H Glucose 133 H Calcium 7.6 L Magnesium Troponin I 0.10 H POC Glucose 11/05/17 11/05/17 07:05 04:00 POC Glucose 161 H 169 H Assessment/Plan Active and Suspected Problems Generalized weakness (Acute) CKD stage 3 due to type 2 diabetes mellitus (Acute) Dehydration (Acute) Patient is a 67-year-old female admitted 11/04/17 due to generalized weakness for 1 week. She was recently admitted October 20-2017 for acute blood loss anemia, acute kidney injury and non-STEMI. Patient was reported to have been in bed for approximately 1 week with neighbors checking on her and she was reported to be found covered in urine and feces. She has a past medical history of type 2 diabetes mellitus, hypertension, chronic kidney disease stage III, peripheral vascular disease, anemia of chronic disease, bilateral BKA. 1. Generalized weakness with physical decline-patient has bilateral BKA and has difficulty caring for self at home. Patient has stage I decubitus ulcer of the buttocks secondary to patient lying in bed for the past week. PT/OT. SW discussed SNF placement with patient and she is agreeable. Wound RN consulted. Nutrition/Spacecraft Systems Engineer consult. Patient admits to depression. Behavioral health consulted. 2. Chronic kidney disease stage III-stable, monitor BMP. Follows with nephrology as outpatient. Patient was mildly dehydrated on admission and received IV fluids which have since been discontinued. 3. CAD/recent non-ST segment elevation PR/ischemic cardiomyopathy/chronic CHF- cardiology consulted during recent admission for non-STEMI. She was to continue medical management and follow-up as outpatient for possible heart catheterization in the future. Troponin mildly elevated during admission with a peak of 0.12. Previous troponin on recent admission 10/21/2017, troponin 37.10. Patient denies chest pain. Recent echocardiogram showed an estimated ejection fraction of 30-35%, moderate mitral valve insufficiency. Continue aspirin, Plavix, beta-shelby, HEATHER inhibitor. BNP on admission 1768. No signs of fluid overload. 4. Acute UTI-UA positive, urine culture pending. Patient has Cheatham catheter in place. She was started on Cipro IV. 5. PVD-continue aspirin, Plavix. Patient has an intolerance to statins. 6. Type 2 diabetes mellitus-Hemoglobin A1c 6.1% in 2012. Re-check HA1C. ADA diet. Accu-Cheks before meals at bedtime with sliding scale insulin. 7. Hypertension-stable, continue current regimen. 8. Depression-continue home Prozac regimen. Behavior health consulted. 9. Chronic ijrbwxtvkagu-s-nva of abdomen shows nonspecific bowel gas pattern. Continue current bowel regimen. 10. Recent admission for acute blood loss anemia secondary to acute hemorrhagic gastric ulcer-patient was started on PPI twice daily which we will continue. She is to follow-up with Dr. Aquino in 7-10 days which she has not completed. She was also instructed to discontinue meloxicam which she has not done. CBC stable. Discharge planning- Plan for DC to SNF. DVT prophylaxis- Lovenox SC This patient was seen by DONNA Carranza under the supervision of Dr. Montilla.
--- NOTE | 2017-11-05 13:06 | CASEMGMT ---
DEANNA called patient's POA Herminia. Discussed placement. She asked SW to try [facility],[place], and [facility]. She is not able to come in today, but will be in tomorrow. She wanted to talk with this SW then, but SW told her this SW will not be here tomorrow, however she could talk with the covering SW. DEANNA explained Medicare coverage for fdc. DEANNA called Linda at [facility] and she does have a female bed available. DEANNA faxed referral. Await response. Andreea MARTIN MSW
--- NOTE | 2017-11-05 14:01 | CASEMGMT ---
SW spoke with patient letting her know about conversation with her POA. SW told her SW made a referral to [facility]. Andreea MARTIN MSW
[2017-11-05] MEDS: Ceftriaxone 1 GM/50 ML BAG IV (14:26)
--- NOTE | 2017-11-05 14:47 | CASEMGMT ---
DEANNA called [facility] and left a message for Linda inquiring if they have decided on patient. DEANNA also spoke with Wolfgang at Behavioral Health and he will plan on trying to stop by around 4p. Andreea MARTIN MSW
--- NOTE | 2017-11-05 15:40 | CASEMGMT ---
Received a call from Linda at [facility] and they can take patient. They are ok with her coming Wednesday. Convalescent completed on HENS. DEANNA let patient know this information. DEANNA also called her POA, Janeth and let her know. DEANNA also let her know she will likely go tomorrow. DEANNA also told her she will probably go by amb[facility]lette and this is not covered by insurance. Told her approximate cost of $50 base fee and $2.50 per mile. Wolfgang from [facility] came over and talked with patient and he gave her some resources. Green sheet on chart Plan: d/c to [facility] under skilled level of care on a convalescent stay. Staff to set up transport. Andreea MARTIN MSW
--- NOTE | 2017-11-05 16:28 | BH.NOTE ---
BH: Inpatient Note - Notes Behavioral Health Inpatient Note: 11/05/17 16:[address] [facility] from social work due to depressive symptoms effecting self-care and functioning. Met with pt in her room. Denies any suicidal ideations, plan, or intent. Pt was cooperative and smiling throughout the assessment. She denied any current overwhelming depression or anxiety. Reports that prior to coming into the hospital she didn't care about life. Admits to not caring for herself and giving up. Discussed how medical issues and hopelessness led to these feelings. Reports I've had a 180 in the past couple days. Reports I know that God still has things for me to do here. Future-oriented. Protective Factors reported. Motivated to discharge to [facility] to get stronger and better. Reports that she is grateful for her support Herminia and doesn't want to disappoint her. We discussed the benefit to outpatient counseling. Reports a bad interaction with a psychiatrist in the past and some reservations about counseling. Encouraged her to think about re-entering counseling. Pt does not appear to be motivated for this. She was given a list of MH providers in the area in case she changes her mind. Encouraged her to utilize staff at [facility] to set up counseling or director social to talk with while she is rehabbing.
[2017-11-05 17:01] LABS: Bedside Glucose 168 mg/dL (70-110)
[2017-11-05] MEDS: Metoprolol Tartrate 25 MG Tablet 12.5 MG PO (21:40)
[2017-11-05 21:57] LABS: Bedside Glucose 188 mg/dL (70-110)
[2017-11-05] MEDS: MELATONIN 10 MG TABLET 5 MG PO (23:45)
[2017-11-06] VITALS (9 sets, daily range): BP systolic 84–108; BP diastolic 34–56; PULSE 49–59; RESP 16–18; TEMP 36.2–37; O2SAT 96–97
[2017-11-06 06:36] LABS: Hematocrit 27.5 % (37-47); Hemoglobin 9.1 g/dl (12.0-15.0); Mean Corp Hgb Conc 33.1 g/gl (32-36); Mean Corpuscular Hgb 29.1 pg (27.0-32.0); Mean Corpuscular Volume 87.9 fL (81-99); Mean Platelet Vol. 10.6 fl (6.2-12.0); Platelet Count 242 K/mm3 (150-450); RBC Distribution Width CV 14.5 % (11.6-14.6); RBC Distribution Width SD 45.1 fl (35.1-43.9); Red Blood Count 3.13 M/mm3 (4.2-5.4); White Blood Count 5.6 K/mm3 (4.4-11.0)
[2017-11-06 06:49] LABS: Scan Indicated on CBC? Y/N NO
[2017-11-06 06:56] LABS: Anion Gap 12 (5-15); BUN 31 mg/dL (7-18); BUN/Creat Ratio 22.1 RATIO (10-20); Calcium,Total 7.6 mg/dL (8.5-10.1); Chloride 106 mmol/L (98-107); EST Glomerular Filtration Rate 40 mL/min (>60); Est Glom Filt Rate - Afr Amer 48 mL/min (>60); Estimated Creatinine Clearance 39.59 ml/min; Glucose 119 mg/dL (74-106); Potassium 4.1 mmol/L (3.5-5.1); Sodium Level 136 mmol/L (136-145)
[2017-11-06 07:01] LABS: Bedside Glucose 119 mg/dL (70-110)
[2017-11-06] MEDS: Aspirin 325 MG Tablet PO (08:37)
--- NOTE | 2017-11-06 09:26 | EKG12_ITS ---
Test Reason : RYTHM CHANGE Blood Pressure : / mmHG Vent. Rate : 051 BPM Atrial Rate : 051 BPM P-R Int : 190 ms QRS Dur : 094 ms QT Int : 592 ms P-R-T Axes : -49 021 168 degrees QTc Int : 545 ms Unusual P axis, possible ectopic atrial bradycardia with Premature atrial complexes ST & Marked T wave abnormality, consider anterolateral ischemia Prolonged QT Abnormal ECG Confirmed by IKE JOHNSON, JORGE ([id number]), medical editor TEVIN DE LA ROSA ([id number]) on 11/10/2017 3:03:35 PM Referred By: Confirmed By:JORGE RAMIRES MD
[2017-11-06] MEDS: Menthol/Lanolin/Calamine/Znox 113 GM Tube 1 APPLIC TOPICAL (10:41)
[2017-11-06] MEDS: Tolterodine Tartrate 4 MG CAP.SA PO (10:43)
[2017-11-06] MEDS: Glucerna Shake 120 ML LIQUID PO ×2 (10:43→13:25)
[2017-11-06] MEDS: Metoprolol Tartrate 25 MG Tablet 12.5 MG PO (10:44)
[2017-11-06] MEDS: Hydrocortisone 2.5% Crm 1 APPLIC TOPICAL (10:44)
[2017-11-06 10:56] LABS: Bedside Glucose 186 mg/dL (70-110)
[2017-11-06] MEDS: Enoxaparin 30 MG/0.3 ML Syringe SC (10:56)
[2017-11-06] MEDS: Gabapentin 600 MG Tablet PO (10:57)
[2017-11-06] MEDS: Clopidogrel Bisulfate 75 MG Tablet PO (10:58)
[2017-11-06] MEDS: Pantoprazole Sodium 40 MG Tablet PO (10:58)
[2017-11-06] MEDS: FLUoxetine 10 MG Capsule PO (10:58)
[2017-11-06] MEDS: Ceftriaxone 1 GM/50 ML BAG IV (10:59)
[2017-11-06] MEDS: Senna/Docusate Sodium 1 Tablet 2 TABLET PO (11:00)
--- NOTE | 2017-11-06 11:18 | PCM.EXTCARCO ---
- Diet 11/04/17 17:01 Diet: Cardiac/Low Cholesterol Food consistency:: Regular Liquid Consistency:: Regular/Thin Type of Dietary Supplement:: Ensure Clear - Routine Orders/Code Status Enema Type: Fleetz Enema Frequency: Daily PRN Suppository Type: Dulcolax 10mg Suppository Frequency: Daily PRN O2 Liters per Minute: 2 O2 Frequency: PRN Keep PO Greater than or Equal to (%): 90 Routine Lab Work: CBC, BMP, - - Q Week Code Status: [facility] - Therapies Physical Therapy: Eval and Treat Occupational Therapy: Eval and Treat - Allergies/Procedures Done in Hospital Allergies/Adverse Reactions: Allergies allopurinol Allergy (Verified 11/04/17 13:28) Unknown bacitracin Allergy (Verified 11/04/17 13:28) Unknown gemfibrozil [Gemfibrozil] Allergy (Verified 11/04/17 13:28) Unknown gentamicin [Gentamicin] Allergy (Verified 11/04/17 13:28) Unknown Penicillins Allergy (Verified 11/04/17 13:28) Unknown pentoxifylline Allergy (Verified 11/04/17 13:28) Unknown pioglitazone Allergy (Verified 11/04/17 13:28) Unknown pioglitazone HCl [From Actos] Allergy (Verified 11/04/17 13:28) Unknown tramadol HCl [From Ultram] Allergy (Verified 11/04/17 13:28) Unknown simvastatin Adverse Reaction (Verified 11/04/17 13:28) Pain in joints Procedures: None - Type of Care/Length of Stay Estimated LOS: More Than 30 Days Type of Care Needed: Skilled Rehab Potential: Fair Prognosis: Fair - Additional Orders/Day of Discharge H&P will serve as current which was dated: 11/04/17 Day of Discharge: 11/06/17 - Dietary and Speech Recommendations Dietitian Recommendations/Changes: Recommend liberalize diet to Regular d/t unintentional wt loss and 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 Recommend continue Ensure Clear w/ meals. Recommend continue Glucerna Shake 4x/day on medpass routine. Recommend 1 pkt Nilay BID to promote wound healing/skin integrity - please order from pharmacy. - Follow Up Care Primary Care Physician: Jarret Clark MD [Primary Care Provider] - Please follow up with your Primary Care Physician in: 1-2 Weeks Please Follow Up With: Triston Denny MD When: As previously scheduled Please Follow Up With: Malachi Stephen MD When: 2 Weeks
--- NOTE | 2017-11-06 11:28 | TREXTCA.CO_ITS ---
- Diet 11/04/17 17:01 Diet: Cardiac/Low Cholesterol Food consistency:: Regular Liquid Consistency:: Regular/Thin Type of Dietary Supplement:: Ensure Clear - Routine Orders/Code Status Enema Type: Fleetz Enema Frequency: Daily PRN Suppository Type: Dulcolax 10mg Suppository Frequency: Daily PRN O2 Liters per Minute: 2 O2 Frequency: PRN Keep PO Greater than or Equal to (%): 90 Routine Lab Work: CBC, BMP, - - Q Week Code Status: [facility] - Therapies Physical Therapy: Eval and Treat Occupational Therapy: Eval and Treat - Allergies/Procedures Done in Hospital Allergies/Adverse Reactions: Allergies allopurinol Allergy (Verified 11/04/17 13:28) Unknown bacitracin Allergy (Verified 11/04/17 13:28) Unknown gemfibrozil [Gemfibrozil] Allergy (Verified 11/04/17 13:28) Unknown gentamicin [Gentamicin] Allergy (Verified 11/04/17 13:28) Unknown Penicillins Allergy (Verified 11/04/17 13:28) Unknown pentoxifylline Allergy (Verified 11/04/17 13:28) Unknown pioglitazone Allergy (Verified 11/04/17 13:28) Unknown pioglitazone HCl [From Actos] Allergy (Verified 11/04/17 13:28) Unknown tramadol HCl [From Ultram] Allergy (Verified 11/04/17 13:28) Unknown simvastatin Adverse Reaction (Verified 11/04/17 13:28) Pain in joints Procedures: None - Type of Care/Length of Stay Estimated LOS: More Than 30 Days Type of Care Needed: Skilled Rehab Potential: Fair Prognosis: Fair - Additional Orders/Day of Discharge H&P will serve as current which was dated: 11/04/17 Day of Discharge: 11/06/17 - Dietary and Speech Recommendations Dietitian Recommendations/Changes: Recommend liberalize diet to Regular d/t unintentional wt loss and 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 Recommend continue Ensure Clear w / meals. Recommend continue Glucerna Shake 4x/day on medpass routine. Recommend 1 pkt Nilay BID to promote wound healing/skin integrity - please order from pharmacy. - Follow Up Care Primary Care Physician: Jarret Clark MD [Primary Care Provider] - Please follow up with your Primary Care Physician in: 1-2 Weeks Please Follow Up With: Triston Denny MD When: As previously scheduled Please Follow Up With: Malachi Stephen MD When: 2 Weeks
[2017-11-06] MEDS: HYDROcodone Bitartrate/Apap 5/325 Tablet PO (11:41)
--- NOTE | 2017-11-06 12:06 | PCM.DC.SUM ---
Discharge Date and Diagnosis Date of Admission: 11/04/17 Date of Discharge: 11/06/17 - Primary Discharge Diagnosis Active and Suspected Problems 1. Generalized weakness/debility-secondary to a combination of acute urinary tract infection, dehydration and recent episode of increased depression in which patient did not get out of bed for 1 week. 2. Stage I decubitus ulcer-present on admission. - Secondary Discharge Diagnosis Chronic Problems DM2 (diabetes mellitus, type 2) Essential hypertension Hyperlipidemia Chronic kidney disease stage III History of recent non-STEMI History of recent acute GI bleed secondary to gastric ulcer PVD CAD Chronic systolic CHF Depression Chronic constipation Hospital Course and Treatment Imaging Results: Diagnostic Data Chest X-Ray 11/04/17 13:26 IMPRESSION: Borderline cardiomegaly. Electronically Signed: Antwon Germain MD at 15:05 EST Tel [phone], Service support , Abdomen X-Ray 11/04/17 17:30 IMPRESSION: Nonspecific bowel gas pattern. Electronically Signed: Ayush Enriquez DO at 18:16 EST Tel [phone], Service support , Consultations 11/04/17 17:08 Consult: Onc/Wound/watch case polisher Routine Comment: Operations: None Procedures: 2-D Echocardiogram Summary of Care Provided: Patient is a 67-year-old female admitted 11/04/17 due to generalized weakness for 1 week. She was recently admitted October 20-2017 for acute blood loss anemia, acute kidney injury and non-STEMI. Patient was reported to have been in bed for approximately 1 week with neighbors checking on her and she was reported to be found covered in urine and feces. She has a past medical history of type 2 diabetes mellitus, hypertension, chronic kidney disease stage III, peripheral vascular disease, anemia of chronic disease, bilateral BKA. 1. Generalized weakness/debility-secondary to a combination of acute urinary tract infection, dehydration and recent episode of increased depression in which patient did not get out of bed for 1 week. Patient was found to have acute E. coli cystitis. She was treated with IV Rocephin and will be discharged on 5 days of Keflex 500 mg twice daily. Patient was evaluated by behavioral health. She states she was very depressed and did not get out of bed for 1 week. She states since she has been admitted her attitude has changed and she states she has something to live for. She denied need for depression medication adjustment or outpatient counseling. Patient has bilateral BKA which makes caring for herself difficult at times. She will be discharged to [facility]. She will continue PT/OT. 2. Chronic kidney disease stage III-stable, monitor BMP weekly at SNF. Follows with nephrology as outpatient. Patient was mildly dehydrated on admission and received IV fluids. 3. CAD/recent non-ST segment elevation MS/ischemic cardiomyopathy/chronic CHF-cardiology consulted during recent admission for non-STEMI. She was to continue medical management and follow-up as outpatient for possible heart catheterization in the future. Troponin mildly elevated during admission with a peak of 0.12. Previous troponin on recent admission 10/21/2017, troponin 37.10. Patient denies chest pain. Recent echocardiogram showed an estimated ejection fraction of 30-35%, moderate mitral valve insufficiency. Echocardiogram was completed again during this admission which showed an estimated ejection fraction of 35%, moderately severe segmental systolic dysfunction which was no change from prior study. Continue aspirin, Plavix, beta-shelby, HEATHER inhibitor. BNP on admission 1768. No signs of fluid overload. As noted above, patient will need further outpatient follow-up with cardiology. 4. Acute E. coli UTI-patient received IV Rocephin. Will be discharged on 5 days of Keflex as noted above. 5. PVD-continue aspirin, Plavix. Patient has an intolerance to statins. 6. Type 2 diabetes mellitus-Hemoglobin A1c 6.1% in 2012. Continue home regimen. Recommend recheck of hemoglobin A1c but by primary care physician. 7. Hypertension-stable, continue current regimen. 8. Depression-continue home Prozac regimen. Behavior health consulted, patient denies any suicidal ideations. 9. Chronic pjozducrobvh-y-mlo of abdomen shows nonspecific bowel gas pattern. Continue current bowel regimen. 10. Recent admission for acute blood loss anemia secondary to acute hemorrhagic gastric ulcer-continue PPI twice daily. She is to follow-up with Dr. Aquino as previously scheduled. Patient instructed to discontinue meloxicam and other NSAID use. Monitor CBC weekly. 11. Stage I decubitus ulcer-present on admission. Continue frequent position changes. Apply calmoseptine. General: Alert, No apparent distress HEENT: Atraumatic, PERRLA, EOMI, Normocephalic Oral: Dry Mucosa Neck: Supple, No JVD, Negative Carotid Bruits Lungs: Clear to auscultation, Diminished Cardiovascular: Regular rate, Regular Rhythm, Normal S1, Normal S2, No murmurs Abdomen: Bowel Sounds Present, Soft, Non Tender, Non-Distended Extremities: No clubbing, No cyanosis, No edema, Capillary Refill Less than 3 Seconds Skin: - - Stage I decubitus ulcer buttocks, no noted open areas. Musculoskeletal: No Tenderness to Palpation of Joints or Extremities, - - Bilateral BKA Neurological: Cranial nerves II-XII grossly intact, Neuro grossly intact Psych/Mental Status: Flat Affect, Depressed Patient seen and examined prior to discharge. Physical assessment as noted above. Patient feels that her baseline. Denies chest pain, shortness of breath. Patient is agreeable to discharge to SNF. This patient was seen by DONNA Carranza under the supervision of Dr. Montilla. Home Medications: Medications to take at Discharge Enalapril Maleate [Vasotec] 10 mg PO DAILY 07/03/13 Gabapentin [Neurontin] 600 mg PO BID 07/03/13 Clopidogrel Bisulfate [Plavix] 75 mg PO DAILY 07/18/13 Fluoxetine [Prozac] 10 mg PO DAILY 02/08/14 Metformin HCl [Glucophage] 500 mg PO DAILY 10/20/17 Oxybutynin Chloride [Ditropan Xl] 15 mg PO DAILY 10/20/17 Hydrocodone Bitart/Apap 5-325 [Gormania 5/325] 1 tab PO Q4H PRN PRN #30 tab 10/26/17 Aspirin 325 mg PO DAILY@0800 11/04/17 Metoprolol Tartrate [Lopressor (beta shelby)] 12.5 mg PO BID 11/04/17 Pantoprazole Sodium [Protonix] 40 mg PO BID 11/04/17 Cephalexin [Keflex] 500 mg PO Q12 #10 cap 11/06/17 Menthol/Lanolin/Calamine/Znox [Calmoseptine Ointment] 1 applic TOPICAL BID tube 11/06/17 Psyllium [Metamucil] 1 packet PO DAILY PRN PRN packet 11/06/17 Following Prescrptions Were Given to Patient: Cephalexin [Keflex] 500 mg PO Q12 #10 cap Primary Care Physician: Jarret Clark MD [Primary Care Provider] - Please follow up with your Primary Care Physician in: 1-2 Weeks Please Follow Up With: Triston Denny MD When: As previously scheduled Please Follow Up With: Malachi Stephen MD When: 2 Weeks Disposition: Retirement facility Minutes spent on discharge:: 35 Patient Condition:: Stable Meaningful Use Info Meaningful Use Diagnoses (Choose all that apply): None applicable
--- NOTE | 2017-11-06 12:30 | DS.PCM_ITS ---
Discharge Date and Diagnosis Date of Admission: 11/04/17 Date of Discharge: 11/06/17 - Primary Discharge Diagnosis Active and Suspected Problems 1. Generalized weakness/debility-secondary to a combination of acute urinary tract infection, dehydration and recent episode of increased depression in which patient did not get out of bed for 1 week. 2. Stage I decubitus ulcer-present on admission. - Secondary Discharge Diagnosis Chronic Problems DM2 (diabetes mellitus, type 2) Essential hypertension Hyperlipidemia Chronic kidney disease stage III History of recent non-STEMI History of recent acute GI bleed secondary to gastric ulcer PVD CAD Chronic systolic CHF Depression Chronic constipation Hospital Course and Treatment Imaging Results: Diagnostic Data Chest X-Ray 11/04/17 13:26 IMPRESSION: Borderline cardiomegaly. Electronically Signed: Antwon Germain MD at 15:05 EST Tel [phone], Service support , Abdomen X-Ray 11/04/17 17:30 IMPRESSION: Nonspecific bowel gas pattern. Electronically Signed: Ayush Enriquez DO at 18:16 EST Tel [phone], Service support , Consultations 11/04/17 17:08 Consult: Onc/Wound/winding operator Routine Comment: Operations: None Procedures: 2-D Echocardiogram Summary of Care Provided: Patient is a 67-year-old female admitted 11/04/17 due to generalized weakness for 1 week. She was recently admitted October 20-2017 for acute blood loss anemia, acute kidney injury and non-STEMI. Patient was reported to have been in bed for approximately 1 week with neighbors checking on her and she was reported to be found covered in urine and feces. She has a past medical history of type 2 diabetes mellitus, hypertension, chronic kidney disease stage III, peripheral vascular disease, anemia of chronic disease, bilateral BKA. 1. Generalized weakness/debility-secondary to a combination of acute urinary tract infection, dehydration and recent episode of increased depression in which patient did not get out of bed for 1 week. Patient was found to have acute E. coli cystitis. She was treated with IV Rocephin and will be discharged on 5 days of Keflex 500 mg twice daily. Patient was evaluated by behavioral health. She states she was very depressed and did not get out of bed for 1 week. She states since she has been admitted her attitude has changed and she states she has something to live for. She denied need for depression medication adjustment or outpatient counseling. Patient has bilateral BKA which makes caring for herself difficult at times. She will be discharged to [facility]. She will continue PT/OT. 2. Chronic kidney disease stage III-stable, monitor BMP weekly at SNF. Follows with nephrology as outpatient. Patient was mildly dehydrated on admission and received IV fluids. 3. CAD/recent non-ST segment elevation [place]/ischemic cardiomyopathy/chronic CHF- cardiology consulted during recent admission for non-STEMI. She was to continue medical management and follow-up as outpatient for possible heart catheterization in the future. Troponin mildly elevated during admission with a peak of 0.12. Previous troponin on recent admission 10/21/2017, troponin 37.10. Patient denies chest pain. Recent echocardiogram showed an estimated ejection fraction of 30-35%, moderate mitral valve insufficiency. Echocardiogram was completed again during this admission which showed an estimated ejection fraction of 35%, moderately severe segmental systolic dysfunction which was no change from prior study. Continue aspirin, Plavix, beta-shelby, HEATHER inhibitor. BNP on admission 1768. No signs of fluid overload. As noted above, patient will need further outpatient follow-up with cardiology. 4. Acute E. coli UTI-patient received IV Rocephin. Will be discharged on 5 days of Keflex as noted above. 5. PVD-continue aspirin, Plavix. Patient has an intolerance to statins. 6. Type 2 diabetes mellitus-Hemoglobin A1c 6.1% in 2012. Continue home regimen. Recommend recheck of hemoglobin A1c but by primary care physician. 7. Hypertension-stable, continue current regimen. 8. Depression-continue home Prozac regimen. Behavior health consulted, patient denies any suicidal ideations. 9. Chronic [id number]-c-yex of abdomen shows nonspecific bowel gas pattern. Continue current bowel regimen. 10. Recent admission for acute blood loss anemia secondary to acute hemorrhagic gastric ulcer-continue PPI twice daily. She is to follow-up with Dr. Aquino as previously scheduled. Patient instructed to discontinue meloxicam and other NSAID use. Monitor CBC weekly. 11. Stage I decubitus ulcer-present on admission. Continue frequent position changes. Apply calmoseptine. General: Alert, No apparent distress HEENT: Atraumatic, PERRLA, EOMI, Normocephalic Oral: Dry Mucosa Neck: Supple, No JVD, Negative Carotid Bruits Lungs: Clear to auscultation, Diminished Cardiovascular: Regular rate, Regular Rhythm, Normal S1, Normal S2, No murmurs Abdomen: Bowel Sounds Present, Soft, Non Tender, Non-Distended Extremities: No clubbing, No cyanosis, No edema, Capillary Refill Less than 3 Seconds Skin: - - Stage I decubitus ulcer buttocks, no noted open areas. Musculoskeletal: No Tenderness to Palpation of Joints or Extremities, - - Bilateral BKA Neurological: Cranial nerves II-XII grossly intact, Neuro grossly intact Psych/Mental Status: Flat Affect, Depressed Patient seen and examined prior to discharge. Physical assessment as noted above. Patient feels that her baseline. Denies chest pain, shortness of breath. Patient is agreeable to discharge to SNF. This patient was seen by DONNA Carranza under the supervision of Dr. Montilla. Home Medications: Medications to take at Discharge Enalapril Maleate [Vasotec] 10 mg PO DAILY 07/03/13 Gabapentin [Neurontin] 600 mg PO BID 07/03/13 Clopidogrel Bisulfate [Plavix] 75 mg PO DAILY 07/18/13 Fluoxetine [Prozac] 10 mg PO DAILY 02/08/14 Metformin HCl [Glucophage] 500 mg PO DAILY 10/20/17 Oxybutynin Chloride [Ditropan Xl] 15 mg PO DAILY 10/20/17 Hydrocodone Bitart/Apap 5-325 [Wilson 5/325] 1 tab PO Q4H PRN PRN #30 tab Aspirin 325 mg PO DAILY@0800 11/04/17 Metoprolol Tartrate [Lopressor (beta shelby)] 12.5 mg PO BID 11/04/17 Pantoprazole Sodium [Protonix] 40 mg PO BID 11/04/17 Cephalexin [Keflex] 500 mg PO Q12 #10 cap 11/06/17 Menthol/Lanolin/Calamine/Znox [Calmoseptine Ointment] 1 applic TOPICAL BID tube 11/06/17 Psyllium [Metamucil] 1 packet PO DAILY PRN PRN packet 11/06/17 Following Prescrptions Were Given to Patient: Cephalexin [Keflex] 500 mg PO Q12 #10 cap Primary Care Physician: Jarret Clark MD [Primary Care Provider] - Please follow up with your Primary Care Physician in: 1-2 Weeks Please Follow Up With: Triston Denny MD When: As previously scheduled Please Follow Up With: Malachi Stephen MD When: 2 Weeks Disposition: Retirement facility Minutes spent on discharge:: 35 Patient Condition:: Stable Meaningful Use Info Meaningful Use Diagnoses (Choose all that apply): None applicable
--- NOTE | 2017-11-06 14:02 | NURSING ---
Report called to May, nurse at [facility]. Patient has been using [place] for pain since being in the hospital. Per May's request, please send a hard copy script for [place]. Updated LISA Middleton of [facility].
== END 2017-11-06 14:15 | disposition skilled nursing facility (03) | DRG 689 ==
LOC: ED 14:49 → MS3 15:27 → PCU 16:18
PROVIDERS: Nurse Practitioner Family; Admitting Provider Internal Medicine; Emergency Provider Emergency Medicine; Family Provider Family Medicine; PCP Family Medicine; Visit Provider Family Medicine
DX: N39.0 Urinary tract infection, site not specified (principal); I21.4 Non-ST elevation (NSTEMI) myocardial infarction; I13.0 Hypertensive heart and chronic kidney disease with heart failure and stage 1 through stage 4 chronic kidney disease, or unspecified chronic kidney disease; L89.311 Pressure ulcer of right buttock, stage 1; E11.22 Type 2 diabetes mellitus with diabetic chronic kidney disease; I50.22 Chronic systolic (congestive) heart failure; E11.51 Type 2 diabetes mellitus with diabetic peripheral angiopathy without gangrene; N18.3 Chronic kidney disease, stage 3 (moderate); Z89.511 Acquired absence of right leg below knee; Z89.512 Acquired absence of left leg below knee; E86.0 Dehydration; I25.5 Ischemic cardiomyopathy; I25.10 Atherosclerotic heart disease of native coronary artery without angina pectoris; Z79.84 Long term (current) use of oral hypoglycemic drugs; B96.20 Unspecified Escherichia coli [E. coli] as the cause of diseases classified elsewhere; Z87.891 Personal history of nicotine dependence; F32.9 Major depressive disorder, single episode, unspecified; E78.5 Hyperlipidemia, unspecified; K21.9 Gastro-esophageal reflux disease without esophagitis; K59.09 Other constipation; D64.9 Anemia, unspecified; K25.9 Gastric ulcer, unspecified as acute or chronic, without hemorrhage or perforation
CPT/HCPCS: 36415; 71045; 74019; 80048; 80076; 81001; 82962; 83690; 83735; 83880; 84484; 85025; 85027; 87086; 87088; 87186; 93005; 93308; 97161; 97165; 99285; J7030; J7040; J7050; A4216; J0744

== ENCOUNTER 2017-12-25 11:00 | Inpatient (IN) | payer MEDICARE, OTHER, SELFPAY ==
[2017-12-25] VITALS (8 sets, daily range): BP systolic 118–192; BP diastolic 66–110; PULSE 50–62; RESP 16–18; TEMP 36.5–36.9; O2SAT 95–100; BMI 24.0; BMI 22.6; BMI 22.7
--- NOTE | 2017-12-25 11:17 | EKG12_ITS ---
Test Reason : GENERAL ILLNESS Blood Pressure : / mmHG Vent. Rate : 051 BPM Atrial Rate : 051 BPM P-R Int : 178 ms QRS Dur : 080 ms QT Int : 524 ms P-R-T Axes : 000 035 136 degrees QTc Int : 482 ms Sinus bradycardia with Premature supraventricular complexes ST & T wave abnormality, consider anterolateral ischemia Prolonged QT Abnormal ECG Confirmed by DIMAS JOHNSON, SAUNDRA ([id number]), copy editor TEVIN DE LA ROSA ([id number]) on 12/28/2017 1:22:15 PM Referred By: SHANTELL Confirmed By:SAUNDRA COCHRAN MD
[2017-12-25 11:20] LABS: Bedside Glucose 88 mg/dL (70-110)
[2017-12-25 12:03] LABS: Absolute Lymphocyte Count 1.47 X10^3/ul (0.83-4.51); Basophil# 0.02 X10^3/uL; Basophil% 0.3 % (0-1); Eosinophil# 0.13 X10^3/uL; Eosinophils% 2.2 % (0-5); Hematocrit 38.9 % (37-47); Hemoglobin 12.6 g/dl (12.0-15.0); Lymphocyte # 1.47 X10^3/ul (4.0); Lymphocyte % 24.6 % (19-41); Mean Corp Hgb Conc 32.4 g/gl (32-36); Mean Corpuscular Hgb 27.8 pg (27.0-32.0); Mean Corpuscular Volume 85.7 fL (81-99); Mean Platelet Vol. 9.8 fl (6.2-12.0); Monocyte# 0.38 X10^3/uL; Monocyte% 6.4 % (0-10); Neutrophil # 3.96 X10^3/uL (2.7-7.7); Neutrophil % 66.3 % (47-70); Platelet Count 317 K/mm3 (150-450); RBC Distribution Width CV 14.1 % (11.6-14.6); RBC Distribution Width SD 43.9 fl (35.1-43.9); Red Blood Count 4.54 M/mm3 (4.2-5.4)
[2017-12-25 12:04] LABS: POSITIVE COUNT NO; POSITIVE DIFFERENTIAL NO; POSITIVE MORPHOLOGY NO
[2017-12-25 12:22] LABS: ALB/GLOB Ratio 0.8 RATIO (0.9-2.4); AST(SGOT) 25 U/L (15-37); Alanine Aminotransfer ALT/SGPT 26 U/L (13-56); Albumin, Serum 3.5 g/dL (3.2-5.0); Alkaline Phosphatase 72 U/L (45-117); Anion Gap 10 (5-15); BUN 25 mg/dL (7-18); Calcium,Total 9.1 mg/dL (8.5-10.1); Chloride 104 mmol/L (98-107); Creatinine, Serum 1.47 mg/dL (0.55-1.02); EST Glomerular Filtration Rate 38 mL/min (>60); Est Glom Filt Rate - Afr Amer 45 mL/min (>60); Estimated Creatinine Clearance 35.62 ml/min; Globulin 4.2 g/dL (2.2-4.2); Glucose 93 mg/dL (74-106); Potassium 4.8 mmol/L (3.5-5.1); Protein, Total 7.7 g/dL (6.4-8.2); Sodium Level 137 mmol/L (136-145)
[2017-12-25 12:26] LABS: CPK Total, Creatine Kinase 54 U/L (26-192)
[2017-12-25 12:29] LABS: Lactic Acid 1.4 mmol/L (0.4-2.0)
[2017-12-25] MEDS: 0.9% Normal Saline 1,000 ML 250 ML IV (12:33)
[2017-12-25 12:37] LABS: Bacteria 0 SEEN /hpf (None Seen); Mucous, Urine 0 SEEN /hpf (<or=2+); Red Blood Cells-Urine 0 SEEN /hpf (0-5)
[2017-12-25 12:38] LABS: Color, Urine Yellow (Yellow); Glucose, Dipstick Normal (Normal); Ketone-Dipstick 15 mg/dl (Negative); Leukocyte Esterase-Dipstick 500 /ul (Negative); Nitrite-Dipstick Negative (Negative); Occult Blood-Urine Negative /ul (Negative); Protein-Dipstick 100 mg/dl (Negative); Specific Gravity, Urine 1.015 (1.002-1.030); Urine Bilirubin Dipstick Negative (Negative); Urine Clarity Sl. Cloudy (Clear); Urine Urobilinogen Normal (Normal)
[2017-12-25 12:43] LABS: Amorphous Sediment 1+; Squamous Epithelial Cells - UA 0-5 SEEN /hpf (5-10); White Blood Cells 5-10 SEEN /hpf (0-5)
--- NOTE | 2017-12-25 13:25 | ED.VISSUMM ---
- ER Visit Summary Date of Service: 12/25/17 Chief Complaint: Found in bed by visiting health provider saturated with urine and stool History of Present Illness: The patient is a 67 F who has been in bed for the past 3 days. She denies p.o. intake. She states she was unable to get up from the bed and transfer her to her wheelchair secondary to left hip pain. The left hip pain is secondary to degenerative arthritis. There is no history of trauma. Patient has no complaint other than generalized weakness and left hip pain. She denies fever, chills night sweats. She denies any ocular, visual or auditory symptoms. She denies any cardiac or respiratory symptoms. She denies any GI or symptoms. She denies myalgias, arthralgias or motor weakness. She denies headache. She denies bruising easily. Please read written note for complete details Physical Examination: blood pressure is elevated 160/76. She is bradycardic with a heart rate of 56. Rooms has odor of urine. Pupils equal round reactive. Extra muscles intact. Sclerae nonicteric. TMs are normal. Mucosa is dry. Heart is slow and regular without murmur gallop or rub. Lungs are clear. Abdomen soft nontender. Lower extremity exam is marked for amputation bilaterally. She is alert she is oriented. Sensory and motor strength are intact upper extremity. She appears depressed. Surprisingly there is no decubiti. Test Results: CBC, hepatic, troponin and CPK are normal. BUN is slightly elevated at 25 and creatinine 1.47. EEG reveals sinus bradycardia rate of 51 with premature atrial beats and ST-T wave segment abnormalitY anterolateral leads. Emergency Department Course and Treatment: Was established and she received IV fluids at 250 an hour. Blood work was obtained to assess for metabolic disorder, infectious disorder UTI and CPK was added to evaluate for rhabdomyolysis and she has been lying in bed for 3 days. EKG was obtained to assess for cardiac ischemia. Treatment Plan: Since patient is able to care for self the hospitalist was paged for 23 observation and case management consultation to help with appropriate disposition Disposition: Medical surgical floor Impression: 1. Failure to thrive 2. Left hip pain secondary to degenerative arthritis 3. Sinus bradycardia 4. History of coronary disease status post non-ST elevation [place] 5. History of type 2 diabetes 6. History of hypertension 7. History of stage III renal disease. 8. History of peripheral vascular disease is post amputation right and left lower extremity This note was generated with [employer] dictation software. It may contain incorrect words, spelling, and punctuation that were not noted in review of the chart prior to signing ED Disposition - Plan for ED Patient: Chief Complaint: General Illness Referrals: Jarret Clark MD [Primary Care Provider] -
--- NOTE | 2017-12-25 13:31 | ED.DCSUM_ITS ---
- ER Visit Summary Date of Service: 12/25/17 Chief Complaint: Found in bed by visiting health provider saturated with urine and stool History of Present Illness: The patient is a 67 F who has been in bed for the past 3 days. She denies p.o. intake. She states she was unable to get up from the bed and transfer her to her wheelchair secondary to left hip pain. The left hip pain is secondary to degenerative arthritis. There is no history of trauma. Patient has no complaint other than generalized weakness and left hip pain. She denies fever, chills night sweats. She denies any ocular, visual or auditory symptoms. She denies any cardiac or respiratory symptoms. She denies any GI or symptoms. She denies myalgias, arthralgias or motor weakness. She denies headache. She denies bruising easily. Please read written note for complete details Physical Examination: blood pressure is elevated 160/76. She is bradycardic with a heart rate of 56. Rooms has odor of urine. Pupils equal round reactive. Extra muscles intact. Sclerae nonicteric. TMs are normal. Mucosa is dry. Heart is slow and regular without murmur gallop or rub. Lungs are clear. Abdomen soft nontender. Lower extremity exam is marked for amputation bilaterally. She is alert she is oriented. Sensory and motor strength are intact upper extremity. She appears depressed. Surprisingly there is no decubiti. Test Results: CBC, hepatic, troponin and CPK are normal. BUN is slightly elevated at 25 and creatinine 1.47. EEG reveals sinus bradycardia rate of 51 with premature atrial beats and ST-T wave segment abnormalitY anterolateral leads. Emergency Department Course and Treatment: Was established and she received IV fluids at 250 an hour. Blood work was obtained to assess for metabolic disorder , infectious disorder UTI and CPK was added to evaluate for rhabdomyolysis and she has been lying in bed for 3 days. EKG was obtained to assess for cardiac ischemia. Treatment Plan: Since patient is able to care for self the hospitalist was paged for 23 observation and case management consultation to help with appropriate disposition Disposition: Medical surgical floor Impression: 1. Failure to thrive 2. Left hip pain secondary to degenerative arthritis 3. Sinus bradycardia 4. History of coronary disease status post non-ST elevation [place] 5. History of type 2 diabetes 6. History of hypertension 7. History of stage III renal disease. 8. History of peripheral vascular disease is post amputation right and left lower extremity This note was generated with [employer] dictation software. It may contain incorrect words, spelling, and punctuation that were not noted in review of the chart prior to signing ED Disposition - Plan for ED Patient: Chief Complaint: General Illness Referrals: Jarret Clark MD [Primary Care Provider] -
[2017-12-25 13:36] LABS: International Normalized Ratio 1.1
[2017-12-25 13:44] LABS: Partial Thromboplast Time 26.9 Seconds (24.1-36.2)
--- NOTE | 2017-12-25 13:51 | PCM.HP.STD ---
<Ismael Echeverria - Last Filed: 12/25/17 13:51> Problem List (1) Generalized weakness Status: Chronic (2) Arthritis Status: Chronic (3) Depression Status: Chronic (4) CAD (coronary artery disease) Status: Chronic (5) PVD (peripheral vascular disease) with claudication Status: Chronic (6) CKD stage 3 due to type 2 diabetes mellitus Status: Chronic (7) DM2 (diabetes mellitus, type 2) Status: Chronic (8) Essential (primary) hypertension Status: Chronic History of Present Illness Date of Admission: 12/25/17 Chief Complaint: left hip pain The patient is a 67 year old F who presents to the ER with left hip pain. She was recently admitted to [facility] in November for generalized weakness and covered in feces and urine at home and was admitted, then discharged to [facility]. She was discharged from [facility] 2 days ago and had home health aids and her neighbors checking on her. She now presents in a similar circumstance. She had not gotten out of bed since being discharged from [facility] 2 days ago and home health care found her covered in urine and feces. When asked why she did not get out of bed and why she was not taking care of herself she says because her left hip hurt so bad she did not want to get out of bed. She says this is a chronic pain and not new, and has not injured herself. She denies any other complaints at this time. She states she wants to be admitted so that she can get stronger and go home. At this time she is stating she wants to go from here to home and does not want to go to a alf even if PTOT suggests it. She denies CP, SOB, cough, fevers, chills, abdominal pain, nausea, vomiting, diarrhea, OMALLEY, dizziness, LH. 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 She also has a hx of CAD and ischemic cardiomyopathy with recent MSTEMI, CKD III, DMt2, PVD, HTN, depression. She was seen by behavioral health at last admission for depression. [] Past Medical History Past Medical History (Chronic Problems): Chronic Problems (Last Updated 11/24/17 @ 11:36 by RANJIT Sheth) Arthritis (Chronic) Depression (Chronic) CAD (coronary artery disease) (Chronic) PVD (peripheral vascular disease) with claudication (Chronic) Cardiomyopathy, ischemic (Chronic) Generalized weakness (Chronic) CKD stage 3 due to type 2 diabetes mellitus (Chronic) DM2 (diabetes mellitus, type 2) (Chronic) Essential (primary) hypertension (Chronic) Allergies allopurinol Allergy (Verified 12/25/17 12:03) Unknown bacitracin Allergy (Verified 12/25/17 12:03) Unknown gemfibrozil [Gemfibrozil] Allergy (Verified 12/25/17 12:03) Unknown gentamicin [Gentamicin] Allergy (Verified 12/25/17 12:03) Unknown Penicillins Allergy (Verified 12/25/17 12:03) Unknown pentoxifylline Allergy (Verified 12/25/17 12:03) Unknown pioglitazone Allergy (Verified 12/25/17 12:03) Unknown pioglitazone HCl [From Actos] Allergy (Verified 12/25/17 12:03) Unknown tramadol HCl [From Ultram] Allergy (Verified 12/25/17 12:03) Unknown simvastatin Adverse Reaction (Verified 12/25/17 12:03) Pain in joints Home Medications: Ambulatory Orders Medication Instructions Recorded Gabapentin [Neurontin] 600 mg PO BID 07/03/13 Clopidogrel Bisulfate [Plavix] 75 mg PO DAILY 07/18/13 Fluoxetine [Prozac] 20 mg PO DAILY 02/08/14 Oxybutynin Chloride [Ditropan Xl] 15 mg PO DAILY 10/20/17 Pantoprazole Sodium [Protonix] 40 mg PO BID 11/04/17 Psyllium [Metamucil] 1 packet PO DAILY PRN PRN packet 11/06/17 Acetaminophen [Mapap] 1,000 mg PO BID 12/25/17 Aspirin [Aspirin, Baby] 81 mg PO DAILY@0800 12/25/17 Melatonin 3 mg PO QHS 12/25/17 Ondansetron [Zofran Odt] 4 mg PO Q6H PRN PRN 12/25/17 Oxycodone [Oxyir] 5 mg PO Q4H PRN PRN 12/25/17 Sennosides [Senna] 2 tab PO DAILY 12/25/17 glyBURIDE [Micronase] 2.5 mg PO DAILY 12/25/17 Surgical History: appendectomy, tonsillectomy, - - Bilateral BKA, previous endovascular interventions for severe peripheral vascular disease Psychiatric History: Depression [employer] History: No pertinent [employer] history Lives: Alone Smoking Status: Former smoker - quit a year and a half ago, 20 years smoker. Tobacco Use: Non-smoker - *Family History Maternal History Items: No pertinent history Paternal History Items: Heart Disease Review of Systems Constitutional: Reports: Weakness. Denies: Chills, Fever, Weight Change HEENT: Denies: Head Aches, Sinus Congestion, Sinus Drainage Cardiovascular: Denies: Chest Pain, Palpitations Respiratory: Denies: Cough, Shortness of breath at rest, Sputum production Gastrointestinal: Denies: Abdominal Pain, Nausea, Vomiting Genitourinary: Denies: Dysuria Musculoskeletal: Reports: Joint Pain - left hip pain. Denies: Joint Tenderness Skin: Denies: Rash, Wounds Neurological: Denies: Numbness, Tingling, Focal weakness Psychiatric: Denies: Anxiety, Depression, Homicidal Ideations, Suicidal Ideations Hematologic/ Lymphatic: Denies: Easy Bruising, Easy Bleeding VTE Information - Inpt Only VTE Present on Admission: No VTE Mechan Device Prophylaxis: SCD's VTE Pharm Prophylaxis ordered?: Yes - Physical Exam General: Alert, Oriented x3, Cooperative HEENT: Atraumatic, PERRLA, EOMI, Normocephalic Neck: Supple, No JVD, Negative Carotid Bruits Lungs: Clear to auscultation, Normal air movement Cardiovascular: Regular rate, No murmurs Abdomen: Bowel Sounds Present, Soft, Non Tender Extremities: No edema, Capillary Refill Less than 3 Seconds Skin: No rashes, No breakdown Musculoskeletal: No Tenderness to Palpation of Joints or Extremities, - - s/p BL BKA. stumps appear non acute. No swelling, discharge, or erythema Neurological: Cranial nerves II-XII grossly intact Psych/Mental Status: Appropriate, Flat Affect, Alert and oriented to time, place, person, mood and affect Vital Signs Temp Pulse Resp BP Pulse Ox 97.7 F L 59 L 18 139/110 H 98 12/25/17 11:01 12/25/17 13:42 12/25/17 13:42 12/25/17 13:42 12/25/17 13:42 Oxygen Delivery Method Room Air Weight: 69.7 kg Body Mass Index (BMI) 24.0 Finger Stick Blood Glucose 88 Laboratory Tests Past 24 Hrs 12/25/17 12/25/1718 11:45 11:45 11:45 WBC 6.0 RBC 4.54 Hgb 12.6 Hct 38.9 MCV 85.7 MCH 27.8 MCHC 32.4 RDW 14.1 RDW Differential 43.9 Plt Count 317 MPV 9.8 Immature Gran % (Auto) 0.200 Neut % (Auto) 66.3 Lymph % (Auto) 24.6 [place] % (Auto) 6.4 Eos % (Auto) 2.2 Baso % (Auto) 0.3 Absolute Neuts (auto) 4.0 Absolute Lymphs (auto) 1.47 Total Counted Not Reportable PT Cancelled INR Cancelled APTT Cancelled Sodium 137 Potassium 4.8 Chloride 104 Carbon Dioxide 23.0 Anion Gap 10 BUN 25 H Creatinine 1.47 H Estim Creat Clear Calc 35.62 Est GFR (MDRD) Af Amer 45 L Est GFR (MDRD) Non-Af 38 L BUN/Creatinine Ratio 17.0 Glucose 93 Lactic Acid Calcium 9.1 Total Bilirubin 0.50 AST 25 ALT 26 Alkaline Phosphatase 72 Total Creatine Kinase Troponin I < 0.02 Total Protein 7.7 Albumin 3.5 Globulin 4.2 Albumin/Globulin Ratio 0.8 L Urine Color Urine Clarity Urine pH Ur Specific Jessie Urine Protein Urine Glucose (UA) Urine Ketones Urine Occult Blood Urine Nitrite Urine Bilirubin Urine Urobilinogen Ur Leukocyte Esterase Urine RBC Urine WBC Ur Squamous Epith Cells Amorphous Sediment Urine Bacteria Urine Mucus 12/25/17 12/25/17 12/25/17 11:45 11:45 12:30 WBC RBC Hgb Hct MCV MCH MCHC RDW RDW Differential Plt Count MPV Immature Gran % (Auto) Neut % (Auto) Lymph % (Auto) [place] % (Auto) Eos % (Auto) Baso % (Auto) Absolute Neuts (auto) Absolute Lymphs (auto) Total Counted PT INR APTT Sodium Potassium Chloride Carbon Dioxide Anion Gap BUN Creatinine Estim Creat Clear Calc Est GFR (MDRD) Af Amer Est GFR (MDRD) Non-Af BUN/Creatinine Ratio Glucose Lactic Acid 1.4 Calcium Total Bilirubin AST ALT Alkaline Phosphatase Total Creatine Kinase 54 Troponin I Total Protein Albumin Globulin Albumin/Globulin Ratio Urine Color Yellow Urine Clarity Sl. Cloudy Urine pH 6.0 Ur Specific Jessie 1.015 Urine Protein 100 H Urine Glucose (UA) Normal Urine Ketones 15 H Urine Occult Blood Negative Urine Nitrite Negative Urine Bilirubin Negative Urine Urobilinogen Normal Ur Leukocyte Esterase 500 H Urine RBC 0 SEEN Urine WBC 5-10 SEEN Ur Squamous Epith Cells 0-5 SEEN Amorphous Sediment 1+ Urine Bacteria 0 SEEN Urine Mucus 0 SEEN 12/25/17 12/25/17 12:30 13:15 WBC RBC Hgb Hct MCV MCH MCHC RDW RDW Differential Plt Count MPV Immature Gran % (Auto) Neut % (Auto) Lymph % (Auto) [place] % (Auto) Eos % (Auto) Baso % (Auto) Absolute Neuts (auto) Absolute Lymphs (auto) Total Counted PT Cancelled 14.0 INR Cancelled 1.1 APTT Cancelled 26.9 Sodium Potassium Chloride Carbon Dioxide Anion Gap BUN Creatinine Estim Creat Clear Calc Est GFR (MDRD) Af Amer Est GFR (MDRD) Non-Af BUN/Creatinine Ratio Glucose Lactic Acid Calcium Total Bilirubin AST ALT Alkaline Phosphatase Total Creatine Kinase Troponin I Total Protein Albumin Globulin Albumin/Globulin Ratio Urine Color Urine Clarity Urine pH Ur Specific Jessie Urine Protein Urine Glucose (UA) Urine Ketones Urine Occult Blood Urine Nitrite Urine Bilirubin Urine Urobilinogen Ur Leukocyte Esterase Urine RBC Urine WBC Ur Squamous Epith Cells Amorphous Sediment Urine Bacteria Urine Mucus POC Glucose 12/25/17 11:13 POC Glucose 88 Assessment/Plan 1. Generalized Weakness and Debility 2/2 chronic left hip pain - She laid in bed for about 2 days. CK negative and renal function normal and no signs of rhabdo. Atraumatic. Pt laid in bed since discharge from [facility] after being admitted under similar circumstances in November of this year. pt will be admitted for pain control and PTOT evals. She currently has [facility]. Last admission required behavioral health consult for a component of depression and she likely would benefit from this again. UA negative. LA negative. 2. CKD III - stable 3. DMt2 - sliding scale, home meds. 4. CAD, prior NSTEMI, ischemic cardiomyopahy and chronic CHF - continue home meds. EKG sinus kelly with PVCs non specific ST pattern. No CP and troponin negative. Intolerant of statins. On asa/plavix. 5. PVD - home meds 6. Depression - continue home meds and consider behavioral health c/s as above 7. Hx blood loss anemia from gastric ulcer. Continue PPI. H/H stable. 8. Chronic constipation - home meds. 9. s/p BL BKA x 8 years ago DVT ppx: heparin DC planning: needs placed although pt is reluctant This patient was seen by Ismael Echeverria PA-C under the supervision of Doctor Jeovany. <Leslie Thayer E - Last Filed: 12/25/17 16:53> History of Present Illness The patient is a 67 year old F [] Past Medical History Allergies allopurinol Allergy (Verified 12/25/17 12:03) Unknown bacitracin Allergy (Verified 12/25/17 12:03) Unknown gemfibrozil [Gemfibrozil] Allergy (Verified 12/25/17 12:03) Unknown gentamicin [Gentamicin] Allergy (Verified 12/25/17 12:03) Unknown Penicillins Allergy (Verified 12/25/17 12:03) Unknown pentoxifylline Allergy (Verified 12/25/17 12:03) Unknown pioglitazone Allergy (Verified 12/25/17 12:03) Unknown pioglitazone HCl [From Actos] Allergy (Verified 12/25/17 12:03) Unknown tramadol HCl [From Ultram] Allergy (Verified 12/25/17 12:03) Unknown simvastatin Adverse Reaction (Verified 12/25/17 12:03) Pain in joints - Physical Exam Vital Signs Temp Pulse Resp BP Pulse Ox 98.4 F 53 L 18 158/75 H 99 12/25/17 14:29 12/25/17 14:29 12/25/17 14:29 12/25/17 14:29 12/25/17 14:29 Oxygen Flow Rate (L/min) 2 Oxygen Delivery Method Room Air Weight: 144 lb 12.8 oz Body Mass Index (BMI) 22.6 Laboratory Tests Past 24 Hrs 12/25/17 15:45 Total Creatine Kinase 36 TSH 1.46 POC Glucose 12/25/17 16:10 POC Glucose 90 Assessment/Plan Hospitalist note: I am seeing this patient in conjunction with Ismael Echeverria. I independently seen and examined the patient. History and physical and laboratory data reviewed and I agree with above admission and treatment plan. Patient was transferred to the ER from her house because she laid in bed for about 2 days she she was discharged from the alf couple of days ago. Reportedly, patient was feces and urine at home. She has bilateral below knee amputation due to diabetic complications. At this time, her only complaint that she is cold and left hip pain which is chronic.. She denied any other complaints. Her blood pressure was elevated, other vital signs are stable. - Physical Exam General: Alert, Oriented x3, Cooperative, No apparent distress. HEENT: Atraumatic, PERRLA, EOMI. Neck: Supple, No JVD, Negative Carotid Bruits, Trachea Midline, Thyroid Normal. Lungs: Clear to auscultation, Normal air movement, No rhonchi, No wheeze, No rales. Cardiovascular: Regular rate, Regular Rhythm, Normal S1, Normal S2, PMI Normal. Abdomen: Bowel Sounds Present, Soft, Non Tender, Non-Distended, No Hepato-splenomegaly. Extremities: Status post below knee amputation bilaterally. Skin: No rashes, No breakdown Neurological: Neuro grossly intact Assessment and plan: #1 physical debility/functional decline/weakness: Patient is unable to take care of herself at home, was laid in bed for 2 days and covered in feces and urine. She has bilateral below knee amputation due to diabetic complications. She was discharged from alf 2 days ago. Plan for pain control, PT OT evaluation and treatment and patient will likely need placement to [facility] facility. She mentioned that she can go back home and take care of herself which is apparently unlikely. #2 probable genital/perianal Chapis: We will start nystatin powder. #3 other chronic medical problems: Stable, continue current medications as above. This note was generated with [employer] dictation software. It may contain incorrect words, spelling, and punctuation that were not noted in checking the note before signing. Code Visit Inpatient E&M: 25547 Init Hosp L2
--- NOTE | 2017-12-25 14:06 | HP.PCM_ITS ---
<Ismael Echeverria - Last Filed: 12/25/17 13:51> Problem List (1) Generalized weakness Status: Chronic (2) Arthritis Status: Chronic (3) Depression Status: Chronic (4) CAD (coronary artery disease) Status: Chronic (5) PVD (peripheral vascular disease) with claudication Status: Chronic (6) CKD stage 3 due to type 2 diabetes mellitus Status: Chronic (7) DM2 (diabetes mellitus, type 2) Status: Chronic (8) Essential (primary) hypertension Status: Chronic History of Present Illness Date of Admission: 12/25/17 Chief Complaint: left hip pain The patient is a 67 year old F who presents to the ER with left hip pain. She was recently admitted to [facility] in November for generalized weakness and covered in feces and urine at home and was admitted, then discharged to [facility]. She was discharged from [facility] 2 days ago and had home health aids and her neighbors checking on her. She now presents in a similar circumstance. She had not gotten out of bed since being discharged from [facility] 2 days ago and home health care found her covered in urine and feces. When asked why she did not get out of bed and why she was not taking care of herself she says because her left hip hurt so bad she did not want to get out of bed. She says this is a chronic pain and not new, and has not injured herself. She denies any other complaints at this time. She states she wants to be admitted so that she can get stronger and go home. At this time she is stating she wants to go from here to home and does not want to go to a detention even if PTOT suggests it. She denies CP, SOB, cough, fevers, chills, abdominal pain, nausea, vomiting, diarrhea, OMALLEY, dizziness, LH. 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 She also has a hx of CAD and ischemic cardiomyopathy with recent MSTEMI, CKD III, DMt2, PVD, HTN, depression. She was seen by behavioral health at last admission for depression. [] Past Medical History Past Medical History (Chronic Problems): Chronic Problems (Last Updated 11/24/17 @ 11:36 by RANJIT Sheth) Arthritis (Chronic) Depression (Chronic) CAD (coronary artery disease) (Chronic) PVD (peripheral vascular disease) with claudication (Chronic) Cardiomyopathy, ischemic (Chronic) Generalized weakness (Chronic) CKD stage 3 due to type 2 diabetes mellitus (Chronic) DM2 (diabetes mellitus, type 2) (Chronic) Essential (primary) hypertension (Chronic) Allergies allopurinol Allergy (Verified 12/25/17 12:03) Unknown bacitracin Allergy (Verified 12/25/17 12:03) Unknown gemfibrozil [Gemfibrozil] Allergy (Verified 12/25/17 12:03) Unknown gentamicin [Gentamicin] Allergy (Verified 12/25/17 12:03) Unknown Penicillins Allergy (Verified 12/25/17 12:03) Unknown pentoxifylline Allergy (Verified 12/25/17 12:03) Unknown pioglitazone Allergy (Verified 12/25/17 12:03) Unknown pioglitazone HCl [From Actos] Allergy (Verified 12/25/17 12:03) Unknown tramadol HCl [From Ultram] Allergy (Verified 12/25/17 12:03) Unknown simvastatin Adverse Reaction (Verified 12/25/17 12:03) Pain in joints Home Medications: Ambulatory Orders Medication Instructions Recorded Gabapentin [Neurontin] 600 mg PO BID 07/03/13 Clopidogrel Bisulfate [Plavix] 75 mg PO DAILY 07/18/13 Fluoxetine [Prozac] 20 mg PO DAILY 02/08/14 Oxybutynin Chloride [Ditropan Xl] 15 mg PO DAILY 10/20/17 Pantoprazole Sodium [Protonix] 40 mg PO BID 11/04/17 Psyllium [Metamucil] 1 packet PO DAILY PRN PRN packet 11/06/17 Acetaminophen [Mapap] 1,000 mg PO BID 12/25/17 Aspirin [Aspirin, Baby] 81 mg PO DAILY@0800 12/25/17 Melatonin 3 mg PO QHS 12/25/17 Ondansetron [Zofran Odt] 4 mg PO Q6H PRN PRN 12/25/17 Oxycodone [Oxyir] 5 mg PO Q4H PRN PRN 12/25/17 Sennosides [Senna] 2 tab PO DAILY 12/25/17 glyBURIDE [Micronase] 2.5 mg PO DAILY 12/25/17 Surgical History: appendectomy, tonsillectomy, - - Bilateral BKA, previous endovascular interventions for severe peripheral vascular disease Psychiatric History: Depression CROZER History: No pertinent CROZER history Lives: Alone Smoking Status: Former smoker - quit a year and a half ago, 20 years smoker. Tobacco Use: Non-smoker - *Family History Maternal History Items: No pertinent history Paternal History Items: Heart Disease Review of Systems Constitutional: Reports: Weakness. Denies: Chills, Fever, Weight Change HEENT: Denies: Head Aches, Sinus Congestion, Sinus Drainage Cardiovascular: Denies: Chest Pain, Palpitations Respiratory: Denies: Cough, Shortness of breath at rest, Sputum production Gastrointestinal: Denies: Abdominal Pain, Nausea, Vomiting Genitourinary: Denies: Dysuria Musculoskeletal: Reports: Joint Pain - left hip pain. Denies: Joint Tenderness Skin: Denies: Rash, Wounds Neurological: Denies: Numbness, Tingling, Focal weakness Psychiatric: Denies: Anxiety, Depression, Homicidal Ideations, Suicidal Ideations Hematologic/ Lymphatic: Denies: Easy Bruising, Easy Bleeding VTE Information - Inpt Only VTE Present on Admission: No VTE Mechan Device Prophylaxis: SCD's VTE Pharm Prophylaxis ordered?: Yes - Physical Exam General: Alert, Oriented x3, Cooperative HEENT: Atraumatic, PERRLA, EOMI, Normocephalic Neck: Supple, No JVD, Negative Carotid Bruits Lungs: Clear to auscultation, Normal air movement Cardiovascular: Regular rate, No murmurs Abdomen: Bowel Sounds Present, Soft, Non Tender Extremities: No edema, Capillary Refill Less than 3 Seconds Skin: No rashes, No breakdown Musculoskeletal: No Tenderness to Palpation of Joints or Extremities, - - s/p BL BKA. stumps appear non acute. No swelling, discharge, or erythema Neurological: Cranial nerves II-XII grossly intact Psych/Mental Status: Appropriate, Flat Affect, Alert and oriented to time, place , person, mood and affect Vital Signs Temp Pulse Resp BP Pulse Ox 97.7 F L 59 L 18 139/110 H 98 12/25/17 11:01 12/25/17 13:42 12/25/17 13:42 12/25/17 13:42 12/25/17 13:42 Oxygen Delivery Method Room Air Weight: 69.7 kg Body Mass Index (BMI) 24.0 Finger Stick Blood Glucose 88 Laboratory Tests Past 24 Hrs 12/25/17 12/25/1718 11:45 11:45 11:45 WBC 6.0 RBC 4.54 Hgb 12.6 Hct 38.9 MCV 85.7 MCH 27.8 MCHC 32.4 RDW 14.1 RDW Differential 43.9 Plt Count 317 MPV 9.8 Immature Gran % (Auto) 0.200 Neut % (Auto) 66.3 Lymph % (Auto) 24.6 Fannin % (Auto) 6.4 Eos % (Auto) 2.2 Baso % (Auto) 0.3 Absolute Neuts (auto) 4.0 Absolute Lymphs (auto) 1.47 Total Counted Not Reportable PT Cancelled INR Cancelled APTT Cancelled Sodium 137 Potassium 4.8 Chloride 104 Carbon Dioxide 23.0 Anion Gap 10 BUN 25 H Creatinine 1.47 H Estim Creat Clear Calc 35.62 Est GFR (MDRD) Af Amer 45 L Est GFR (MDRD) Non-Af 38 L BUN/Creatinine Ratio 17.0 Glucose 93 Lactic Acid Calcium 9.1 Total Bilirubin 0.50 AST 25 ALT 26 Alkaline Phosphatase 72 Total Creatine Kinase Troponin I < 0.02 Total Protein 7.7 Albumin 3.5 Globulin 4.2 Albumin/Globulin Ratio 0.8 L Urine Color Urine Clarity Urine pH Ur Specific [place] Urine Protein Urine Glucose (UA) Urine Ketones Urine Occult Blood Urine Nitrite Urine Bilirubin Urine Urobilinogen Ur Leukocyte Esterase Urine RBC Urine WBC Ur Squamous Epith Cells Amorphous Sediment Urine Bacteria Urine Mucus 12/25/17 12/25/17 12/25/17 11:45 11:45 12:30 WBC RBC Hgb Hct MCV MCH MCHC RDW RDW Differential Plt Count MPV Immature Gran % (Auto) Neut % (Auto) Lymph % (Auto) Fannin % (Auto) Eos % (Auto) Baso % (Auto) Absolute Neuts (auto) Absolute Lymphs (auto) Total Counted PT INR APTT Sodium Potassium Chloride Carbon Dioxide Anion Gap BUN Creatinine Estim Creat Clear Calc Est GFR (MDRD) Af Amer Est GFR (MDRD) Non-Af BUN/Creatinine Ratio Glucose Lactic Acid 1.4 Calcium Total Bilirubin AST ALT Alkaline Phosphatase Total Creatine Kinase 54 Troponin I Total Protein Albumin Globulin Albumin/Globulin Ratio Urine Color Yellow Urine Clarity Sl. Cloudy Urine pH 6.0 Ur Specific [place] 1.015 Urine Protein 100 H Urine Glucose (UA) Normal Urine Ketones 15 H Urine Occult Blood Negative Urine Nitrite Negative Urine Bilirubin Negative Urine Urobilinogen Normal Ur Leukocyte Esterase 500 H Urine RBC 0 SEEN Urine WBC 5-10 SEEN Ur Squamous Epith Cells 0-5 SEEN Amorphous Sediment 1+ Urine Bacteria 0 SEEN Urine Mucus 0 SEEN 12/25/17 12/25/17 12:30 13:15 WBC RBC Hgb Hct MCV MCH MCHC RDW RDW Differential Plt Count MPV Immature Gran % (Auto) Neut % (Auto) Lymph % (Auto) Fannin % (Auto) Eos % (Auto) Baso % (Auto) Absolute Neuts (auto) Absolute Lymphs (auto) Total Counted PT Cancelled 14.0 INR Cancelled 1.1 APTT Cancelled 26.9 Sodium Potassium Chloride Carbon Dioxide Anion Gap BUN Creatinine Estim Creat Clear Calc Est GFR (MDRD) Af Amer Est GFR (MDRD) Non-Af BUN/Creatinine Ratio Glucose Lactic Acid Calcium Total Bilirubin AST ALT Alkaline Phosphatase Total Creatine Kinase Troponin I Total Protein Albumin Globulin Albumin/Globulin Ratio Urine Color Urine Clarity Urine pH Ur Specific [place] Urine Protein Urine Glucose (UA) Urine Ketones Urine Occult Blood Urine Nitrite Urine Bilirubin Urine Urobilinogen Ur Leukocyte Esterase Urine RBC Urine WBC Ur Squamous Epith Cells Amorphous Sediment Urine Bacteria Urine Mucus POC Glucose 12/25/17 11:13 POC Glucose 88 Assessment/Plan 1. Generalized Weakness and Debility 2/2 chronic left hip pain - She laid in bed for about 2 days. CK negative and renal function normal and no signs of rhabdo. Atraumatic. Pt laid in bed since discharge from [facility] after being admitted under similar circumstances in November of this year. pt will be admitted for pain control and PTOT evals. She currently has [facility]. Last admission required behavioral health consult for a component of depression and she likely would benefit from this again. UA negative. LA negative. 2. CKD III - stable 3. DMt2 - sliding scale, home meds. 4. CAD, prior NSTEMI, ischemic cardiomyopahy and chronic CHF - continue home meds. EKG sinus kelly with PVCs non specific ST pattern. No CP and troponin negative. Intolerant of statins. On asa/plavix. 5. PVD - home meds 6. Depression - continue home meds and consider behavioral health c/s as above 7. Hx blood loss anemia from gastric ulcer. Continue PPI. H/H stable. 8. Chronic constipation - home meds. 9. s/p BL BKA x 8 years ago DVT ppx: heparin DC planning: needs placed although pt is reluctant This patient was seen by Ismael Echeverria PA-C under the supervision of Doctor Jeovany. <Leslie Thayer E - Last Filed: 12/25/17 16:53> History of Present Illness The patient is a 67 year old F [] Past Medical History Allergies allopurinol Allergy (Verified 12/25/17 12:03) Unknown bacitracin Allergy (Verified 12/25/17 12:03) Unknown gemfibrozil [Gemfibrozil] Allergy (Verified 12/25/17 12:03) Unknown gentamicin [Gentamicin] Allergy (Verified 12/25/17 12:03) Unknown Penicillins Allergy (Verified 12/25/17 12:03) Unknown pentoxifylline Allergy (Verified 12/25/17 12:03) Unknown pioglitazone Allergy (Verified 12/25/17 12:03) Unknown pioglitazone HCl [From Actos] Allergy (Verified 12/25/17 12:03) Unknown tramadol HCl [From Ultram] Allergy (Verified 12/25/17 12:03) Unknown simvastatin Adverse Reaction (Verified 12/25/17 12:03) Pain in joints - Physical Exam Vital Signs Temp Pulse Resp BP Pulse Ox 98.4 F 53 L 18 158/75 H 99 12/25/17 14:29 12/25/17 14:29 12/25/17 14:29 12/25/17 14:29 12/25/17 14:29 Oxygen Flow Rate (L/min) 2 Oxygen Delivery Method Room Air Weight: 144 lb 12.8 oz Body Mass Index (BMI) 22.6 Laboratory Tests Past 24 Hrs 12/25/17 15:45 Total Creatine Kinase 36 TSH 1.46 POC Glucose 12/25/17 16:10 POC Glucose 90 Assessment/Plan Hospitalist note: I am seeing this patient in conjunction with Ismael Echeverria. I independently seen and examined the patient. History and physical and laboratory data reviewed and I agree with above admission and treatment plan. Patient was transferred to the ER from her house because she laid in bed for about 2 days she she was discharged from the detention couple of days ago. Reportedly, patient was feces and urine at home. She has bilateral below knee amputation due to diabetic complications. At this time, her only complaint that she is cold and left hip pain which is chronic.. She denied any other complaints. Her blood pressure was elevated, other vital signs are stable. - Physical Exam General: Alert, Oriented x3, Cooperative, No apparent distress. HEENT: Atraumatic, PERRLA, EOMI. Neck: Supple, No JVD, Negative Carotid Bruits, Trachea Midline, Thyroid Normal. Lungs: Clear to auscultation, Normal air movement, No rhonchi, No wheeze, No rales. Cardiovascular: Regular rate, Regular Rhythm, Normal S1, Normal S2, PMI Normal. Abdomen: Bowel Sounds Present, Soft, Non Tender, Non-Distended, No Hepato- splenomegaly. Extremities: Status post below knee amputation bilaterally. Skin: No rashes, No breakdown Neurological: Neuro grossly intact Assessment and plan: #1 physical debility/functional decline/weakness: Patient is unable to take care of herself at home, was laid in bed for 2 days and covered in feces and urine. She has bilateral below knee amputation due to diabetic complications. She was discharged from detention 2 days ago. Plan for pain control, PT OT evaluation and treatment and patient will likely need placement to nursing home facility. She mentioned that she can go back home and take care of herself which is apparently unlikely. #2 probable genital/perianal Chapis: We will start nystatin powder. #3 other chronic medical problems: Stable, continue current medications as above. This note was generated with [employer] dictation software. It may contain incorrect words, spelling, and punctuation that were not noted in checking the note before signing. Code Visit Inpatient E&M: 72261 Init Hosp L2
--- NOTE | 2017-12-25 14:36 | NURSING ---
HOME MED LIST REVIEWED WITH PT, PT CONFLICTS SELF WHEN VERBALIZED LAST TAKE. FIRST STATES HASN'T TAKEN FOR DAYS THEN STATES HAD TODAY. PT VERBALIZED ALWAYS LIVES AT HOME, THEN STATES HAVEN'T BEEN HOME FOR DAYS, THEN VERBALIZED WAS NEVER IN ECF.
[2017-12-25] MEDS: 0.9% Normal Saline 1,000 ML 75 ML IV (15:00)
[2017-12-25 16:21] LABS: Bedside Glucose 90 mg/dL (70-110)
[2017-12-25 16:26] LABS: CPK Total, Creatine Kinase 36 U/L (26-192); Thyroid Stim Hormone (TSH) 1.46 uIU/mL (0.358-3.74)
[2017-12-25] MEDS: Gabapentin 600 MG Tablet PO (17:48)
[2017-12-25] MEDS: Acetaminophen 500 MG Tablet 1000 MG PO (17:51)
[2017-12-25] MEDS: Nystatin Powder 15gm Bottle 1 APPLIC TOPICAL (22:15)
[2017-12-25] MEDS: Pantoprazole Sodium 40 MG Tablet PO (22:16)
[2017-12-25] MEDS: Heparin Injection 5,000 UNITS/ML Syringe 5000 UNITS SC (22:16)
[2017-12-25] MEDS: MELATONIN 3 MG TABLET PO (22:16)
[2017-12-25 23:06] LABS: Bedside Glucose 152 mg/dL (70-110)
[2017-12-26] MEDS: oxyCODONE 5 MG Tablet PO (00:08)
[2017-12-26 03:05] VITALS: BP 110/55; PULSE 49; RESP 16; TEMP 36.8; O2SAT 98
[2017-12-26] MEDS: Heparin Injection 5,000 UNITS/ML Syringe 5000 UNITS SC ×3 (05:07→22:27)
[2017-12-26 06:46] LABS: Bedside Glucose 106 mg/dL (70-110)
[2017-12-26] MEDS: Acetaminophen 500 MG Tablet 1000 MG PO ×2 (08:47→22:27)
[2017-12-26] MEDS: Gabapentin 600 MG Tablet PO ×2 (08:47→17:08)
[2017-12-26] MEDS: FLUoxetine 20 MG Capsule PO (08:47)
[2017-12-26] MEDS: Aspirin 81 MG TAB.CHEW PO (08:47)
[2017-12-26] MEDS: Pantoprazole Sodium 40 MG Tablet PO ×2 (08:48→22:27)
[2017-12-26] MEDS: Tolterodine Tartrate 4 MG CAP.SA PO (08:48)
[2017-12-26] MEDS: Senna Tablet 2 TABLET PO (08:48)
[2017-12-26] MEDS: Nystatin Powder 15gm Bottle 1 APPLIC TOPICAL ×2 (08:49→22:27)
[2017-12-26] MEDS: Clopidogrel Bisulfate 75 MG Tablet PO (08:49)
[2017-12-26 08:57] VITALS: BP 141/72; PULSE 46; RESP 16; TEMP 36.7; O2SAT 96
[2017-12-26 09:11] LABS: Bedside Glucose 103 mg/dL (70-110)
--- NOTE | 2017-12-26 11:45 | NURSING ---
talked w/ cyanide case hardener Noy regarding mental health/crisis consult. aware social worker health services will contact behavior health tomorrow as reason for consult not suicidal ideations.
[2017-12-26 12:50] LABS: Bedside Glucose 115 mg/dL (70-110)
--- NOTE | 2017-12-26 13:29 | PCM.PROGNOTE ---
<Ismael Echeverria - Last Filed: 12/26/17 13:29> Subjective: Pt currently denying complaints including SOB, cough, CP, abdominal pain, nausea/vomiting/ or diarrhea. She still is insisting that she should go home from here and not to a care home despite that she was not functioning at home. She has not been out of bed yet, and needs to work with PTOT. - Physical Exam General: Alert, Oriented x3, Cooperative HEENT: Atraumatic, PERRLA, EOMI, Normocephalic Neck: Supple, No JVD, Negative Carotid Bruits Lungs: Clear to auscultation, Normal air movement Cardiovascular: Regular rate, No murmurs Abdomen: Bowel Sounds Present, Soft, Non Tender Extremities: No edema, Capillary Refill Less than 3 Seconds Skin: No rashes, No breakdown Musculoskeletal: No Tenderness to Palpation of Joints or Extremities, - - s/p BL BKA Neurological: Cranial nerves II-XII grossly intact Psych/Mental Status: Flat Affect, Alert and oriented to time, place, person, mood and affect Vital Signs Temp Pulse Resp BP Pulse Ox 98.0 F 46 L 16 141/72 H 96 12/26/17 08:57 12/26/17 08:57 12/26/17 08:57 12/26/17 08:57 12/26/17 08:57 Oxygen Delivery Method Room Air Weight: 65.7 kg Intake and Output for Last 24 Hours 12/24/17 12/25/17 12/26/17 23:59 23:59 23:59 Intake Total 1795 / 1795 100 / 100 Output Total 400 / 400 150 / 150 Balance 1395 / 1395 -50 / -50 Laboratory Tests Past 24 Hrs 12/25/17 15:45 Total Creatine Kinase 36 TSH 1.46 POC Glucose 12/26/17 12/26/17 12/26/17 11:22 08:46 06:36 POC Glucose 115 H 103 106 12/25/17 12/25/17 22:13 16:10 POC Glucose 152 H 90 Medical Necessity - Tobacco Use Smoking Status: Former smoker Tobacco Use: Non-smoker Assessment/Plan 1. Generalized Weakness and Debility 2/2 chronic left hip pain - PTOT, placement. Behavioral health consult for depression as this was helpful on last admission for same reason. UA neg. 2. CKD III - stable 3. DMt2 - sliding scale, home meds. 4. CAD, prior NSTEMI, ischemic cardiomyopahy and chronic CHF - continue home meds. EKG sinus kelly with PVCs non specific ST pattern. No CP and troponin negative. Intolerant of statins. On asa/plavix. 5. PVD - home meds 6. Depression - continue home meds. Suspect major depression 2/2 debility and loss of independence. 7. Hx blood loss anemia from gastric ulcer. Continue PPI. H/H stable. 8. Chronic constipation - home meds. 9. s/p BL BKA x 8 years ago DVT ppx: heparin DC planning: needs placed although pt is reluctant This patient was seen by Ismael Echeverria PA-C under the supervision of Doctor Jeovany. <Leslie Thayer E - Last Filed: 12/26/17 13:57> - Physical Exam Vital Signs Temp Pulse Resp BP Pulse Ox 98.0 F 46 L 16 141/72 H 96 12/26/17 08:57 12/26/17 08:57 12/26/17 08:57 12/26/17 08:57 12/26/17 08:57 Oxygen Delivery Method Room Air Weight: 144 lb 13.499 oz Intake and Output for Last 24 Hours 12/24/17 12/25/17 12/26/17 23:59 23:59 23:59 Intake Total 1795 / 1795 220 / 220 Output Total 400 / 400 300 / 300 Balance 1395 / 1395 -80 / -80 Laboratory Tests Past 24 Hrs 12/25/17 15:45 Total Creatine Kinase 36 TSH 1.46 POC Glucose 12/26/17 12/26/17 12/26/17 11:22 08:46 06:36 POC Glucose 115 H 103 106 12/25/17 12/25/17 22:13 16:10 POC Glucose 152 H 90 Assessment/Plan Hospitalist note: I am seeing this patient in conjunction with Ismael Echeverria. I independently seen and examined the patient. Progress note above reviewed and I agree with above treatment plan. Today, patient denies any significant complaints. Her vital signs are stable. - Physical Exam General: Alert, Oriented x3, Cooperative, No apparent distress. HEENT: Atraumatic, PERRLA, EOMI. Neck: Supple, No JVD, Negative Carotid Bruits, Trachea Midline, Thyroid Normal. Lungs: Clear to auscultation, Normal air movement, No rhonchi, No wheeze, No rales. Cardiovascular: Regular rate, Regular Rhythm, Normal S1, Normal S2, PMI Normal. Abdomen: Bowel Sounds Present, Soft, Non Tender, Non-Distended, No Hepato-splenomegaly. Extremities: Status post below knee amputation bilaterally. Skin: No rashes, No breakdown Neurological: Neuro grossly intact Assessment and plan: #1 physical debility/functional decline/weakness: Patient is unable to take care of herself at home, was laid in bed for 2 days and covered in feces and urine. Plan is for PT OT evaluation and treatment, behavioral health consult for depression. #2 probable genital/perianal Chapis: On nystatin powder. #3 other chronic medical problems: Stable, continue current medications as above. This note was generated with [employer] dictation software. It may contain incorrect words, spelling, and punctuation that were not noted in checking the note before signing. Code Visit Inpatient E&M: 19445 Subs Hosp L2
--- NOTE | 2017-12-26 13:32 | PN_ITS ---
<Ismael Echeverria - Last Filed: 12/26/17 13:29> Subjective: Pt currently denying complaints including SOB, cough, CP, abdominal pain, nausea /vomiting/ or diarrhea. She still is insisting that she should go home from here and not to a shelter despite that she was not functioning at home. She has not been out of bed yet, and needs to work with PTOT. - Physical Exam General: Alert, Oriented x3, Cooperative HEENT: Atraumatic, PERRLA, EOMI, Normocephalic Neck: Supple, No JVD, Negative Carotid Bruits Lungs: Clear to auscultation, Normal air movement Cardiovascular: Regular rate, No murmurs Abdomen: Bowel Sounds Present, Soft, Non Tender Extremities: No edema, Capillary Refill Less than 3 Seconds Skin: No rashes, No breakdown Musculoskeletal: No Tenderness to Palpation of Joints or Extremities, - - s/p BL BKA Neurological: Cranial nerves II-XII grossly intact Psych/Mental Status: Flat Affect, Alert and oriented to time, place, person, mood and affect Vital Signs Temp Pulse Resp BP Pulse Ox 98.0 F 46 L 16 141/72 H 96 12/26/17 08:57 12/26/17 08:57 12/26/17 08:57 12/26/17 08:57 12/26/17 08:57 Oxygen Delivery Method Room Air Weight: 65.7 kg Intake and Output for Last 24 Hours 12/24/17 12/25/17 12/26/17 23:59 23:59 23:59 Intake Total 1795 / 1795 100 / 100 Output Total 400 / 400 150 / 150 Balance 1395 / 1395 -50 / -50 Laboratory Tests Past 24 Hrs 12/25/17 15:45 Total Creatine Kinase 36 TSH 1.46 POC Glucose 12/26/17 12/26/17 12/26/17 11:22 08:46 06:36 POC Glucose 115 H 103 106 12/25/17 12/25/17 22:13 16:10 POC Glucose 152 H 90 Medical Necessity - Tobacco Use Smoking Status: Former smoker Tobacco Use: Non-smoker Assessment/Plan 1. Generalized Weakness and Debility 2/2 chronic left hip pain - PTOT, placement. Behavioral health consult for depression as this was helpful on last admission for same reason. UA neg. 2. CKD III - stable 3. DMt2 - sliding scale, home meds. 4. CAD, prior NSTEMI, ischemic cardiomyopahy and chronic CHF - continue home meds. EKG sinus kelly with PVCs non specific ST pattern. No CP and troponin negative. Intolerant of statins. On asa/plavix. 5. PVD - home meds 6. Depression - continue home meds. Suspect major depression 2/2 debility and loss of independence. 7. Hx blood loss anemia from gastric ulcer. Continue PPI. H/H stable. 8. Chronic constipation - home meds. 9. s/p BL BKA x 8 years ago DVT ppx: heparin DC planning: needs placed although pt is reluctant This patient was seen by Ismael Echeverria PA-C under the supervision of Doctor Jeovany. <Leslie Thayer E - Last Filed: 12/26/17 13:57> - Physical Exam Vital Signs Temp Pulse Resp BP Pulse Ox 98.0 F 46 L 16 141/72 H 96 12/26/17 08:57 12/26/17 08:57 12/26/17 08:57 12/26/17 08:57 12/26/17 08:57 Oxygen Delivery Method Room Air Weight: 144 lb 13.499 oz Intake and Output for Last 24 Hours 12/24/17 12/25/17 12/26/17 23:59 23:59 23:59 Intake Total 1795 / 1795 220 / 220 Output Total 400 / 400 300 / 300 Balance 1395 / 1395 -80 / -80 Laboratory Tests Past 24 Hrs 12/25/17 15:45 Total Creatine Kinase 36 TSH 1.46 POC Glucose 12/26/17 12/26/17 12/26/17 11:22 08:46 06:36 POC Glucose 115 H 103 106 12/25/17 12/25/17 22:13 16:10 POC Glucose 152 H 90 Assessment/Plan Hospitalist note: I am seeing this patient in conjunction with Ismael Echeverria. I independently seen and examined the patient. Progress note above reviewed and I agree with above treatment plan. Today, patient denies any significant complaints. Her vital signs are stable. - Physical Exam General: Alert, Oriented x3, Cooperative, No apparent distress. HEENT: Atraumatic, PERRLA, EOMI. Neck: Supple, No JVD, Negative Carotid Bruits, Trachea Midline, Thyroid Normal. Lungs: Clear to auscultation, Normal air movement, No rhonchi, No wheeze, No rales. Cardiovascular: Regular rate, Regular Rhythm, Normal S1, Normal S2, PMI Normal. Abdomen: Bowel Sounds Present, Soft, Non Tender, Non-Distended, No Hepato- splenomegaly. Extremities: Status post below knee amputation bilaterally. Skin: No rashes, No breakdown Neurological: Neuro grossly intact Assessment and plan: #1 physical debility/functional decline/weakness: Patient is unable to take care of herself at home, was laid in bed for 2 days and covered in feces and urine. Plan is for PT OT evaluation and treatment, behavioral health consult for depression. #2 probable genital/perianal Chapis: On nystatin powder. #3 other chronic medical problems: Stable, continue current medications as above. This note was generated with [employer] dictation software. It may contain incorrect words, spelling, and punctuation that were not noted in checking the note before signing. Code Visit Inpatient E&M: 73976 Subs Hosp L2
[2017-12-26 16:00] VITALS: BP 122/58; PULSE 51; RESP 18; TEMP 37.1; O2SAT 97
[2017-12-26 17:30] LABS: Bedside Glucose 135 mg/dL (70-110)
[2017-12-26 20:00] VITALS: BP 123/65; PULSE 52; RESP 16; TEMP 36.5; O2SAT 98
[2017-12-26] MEDS: MELATONIN 3 MG TABLET PO (22:27)
[2017-12-26 22:30] VITALS: BP 111/58; PULSE 53; RESP 16; TEMP 36.7; O2SAT 97
[2017-12-26 22:35] LABS: Bedside Glucose 174 mg/dL (70-110)
[2017-12-27 03:00] VITALS: BP 125/69; PULSE 55; RESP 16; TEMP 36.7; O2SAT 97
[2017-12-27] MEDS: Heparin Injection 5,000 UNITS/ML Syringe 5000 UNITS SC ×3 (05:14→22:29)
[2017-12-27 06:45] LABS: Bedside Glucose 112 mg/dL (70-110)
[2017-12-27 08:07] VITALS: BP 121/68; PULSE 44; RESP 20; TEMP 37.1; O2SAT 100
[2017-12-27] MEDS: Tolterodine Tartrate 4 MG CAP.SA PO (08:15)
[2017-12-27] MEDS: Clopidogrel Bisulfate 75 MG Tablet PO (08:15)
[2017-12-27] MEDS: FLUoxetine 20 MG Capsule PO (08:15)
[2017-12-27] MEDS: Gabapentin 600 MG Tablet PO ×2 (08:15→17:33)
[2017-12-27] MEDS: Pantoprazole Sodium 40 MG Tablet PO ×2 (08:15→22:28)
[2017-12-27] MEDS: Aspirin 81 MG TAB.CHEW PO (08:15)
[2017-12-27] MEDS: Senna Tablet 2 TABLET PO (08:16)
[2017-12-27] MEDS: Acetaminophen 500 MG Tablet 1000 MG PO ×2 (09:27→22:28)
[2017-12-27] MEDS: Nystatin Powder 15gm Bottle 1 APPLIC TOPICAL (09:28)
--- NOTE | 2017-12-27 09:52 | CASEMGMT ---
Social Work Assessment Referral Date: 12/27 Date of Assessment: 12/27 Reason for consult: Initial assessment Informant: Self-Referral SW met with patient to complete assessment. SW introduced self and role at [facility]. Pt states that she lives alone in a one story home with no steps. Pt confirms that she was at [facility] 2 days prior to being admitted into hospital. Pt states that she has close friends and family that is able to assist her when needed. She states that she has a wheelchair at home and that she was able to complete ADLs independently prior to coming to [facility]. Pt states that her plan is to go back home. Per, nursing note, nurse was wondering if crisis needed to be consulted due to behavior/mental health. Nursing note states that the crisis consult is not due to suicidal ideation. SW asked pt if she would be willing to speak with behavioral health. Pt denied stating I don't think I really need it. SW encouraged client to ask nurse for drug abuse social worker if any needs or concerns arise. Pt states understanding. Substance Abuse HX: Pt states that she used to smoke cigarettes but reports that she no longer does. Mental Health HX: Pt denied Interventions: Initial assessment to determine needs and discharge plans. Plan: Pt is stating that she will return home Margaux Jeffers NETWORK PROFESSIONAL, TRACK BROOM OPERATOR
[2017-12-27 11:26] LABS: Bedside Glucose 177 mg/dL (70-110)
--- NOTE | 2017-12-27 13:14 | PN_ITS ---
<Ismael Echeverria - Last Filed: 12/27/17 13:12> Subjective: Pt worked with OT and did poorly, she refused to work with PT yesterday. Encouraged her to do so today. She denies hip pain today. She denies other symptoms including chest pain, cough, shortness of breath, wheezing, nausea, vomiting, diarrhea, abdominal pain, fevers or chills. She still does not want placement. - Physical Exam General: Alert, Oriented x3, Cooperative HEENT: Atraumatic, PERRLA, EOMI, Normocephalic Neck: Supple, No JVD, Negative Carotid Bruits Lungs: Clear to auscultation, Normal air movement Cardiovascular: Regular rate, No murmurs Abdomen: Bowel Sounds Present, Soft, Non Tender Extremities: No edema, Capillary Refill Less than 3 Seconds, - - Status post bilateral BKA. Skin: No rashes, No breakdown Musculoskeletal: No Tenderness to Palpation of Joints or Extremities Neurological: Cranial nerves II-XII grossly intact Psych/Mental Status: Flat Affect, Alert and oriented to time, place, person, mood and affect Vital Signs Temp Pulse Resp BP Pulse Ox 98.7 F 44 L 20 H 121/68 H 100 12/27/17 08:07 12/27/17 08:07 12/27/17 08:07 12/27/17 08:07 12/27/17 08:07 Oxygen Delivery Method Room Air Weight: 65.7 kg Intake and Output for Last 24 Hours 12/25/17 12/26/17 12/27/17 23:59 23:59 23:59 Intake Total 1795 / 1795 440 / 440 600 / 600 Output Total 400 / 400 500 / 500 800 / 800 Balance 1395 / 1395 -60 / -60 -200 / -200 POC Glucose 12/27/17 12/27/17 12/26/17 11:16 06:39 22:25 POC Glucose 177 H 112 H 174 H 12/26/17 17:05 POC Glucose 135 H Medical Necessity - Tobacco Use Smoking Status: Former smoker Tobacco Use: Non-smoker Assessment/Plan 1. Generalized Weakness and Debility 2/2 chronic left hip pain - PTOT, placement. Behavioral health consult for depression as this was helpful on last admission for same reason. UA neg. she remains asymptomatic other than weakness. 2. CKD III - stable 3. DMt2 - sliding scale, home meds. 4. CAD, prior NSTEMI, ischemic cardiomyopahy and chronic CHF - continue home meds. EKG sinus kelly with PVCs non specific ST pattern. No CP and troponin negative. Intolerant of statins. On asa/plavix. 5. PVD - home meds 6. Depression - continue home meds. Suspect major depression 2/2 debility and loss of independence. 7. Hx blood loss anemia from gastric ulcer. Continue PPI. H/H stable. 8. Chronic constipation - home meds. 9. s/p BL BKA x 8 years ago DVT ppx: heparin DC planning: After working with PT today if she continues to refuse placement she will be discharged home with home care. This patient was seen by Ismael Echeverria PA-C under the supervision of Doctor Jeovany. <Leslie Thayer E - Last Filed: 12/27/17 14:08> - Physical Exam Vital Signs Temp Pulse Resp BP Pulse Ox 98.7 F 44 L 20 H 121/68 H 100 12/27/17 08:07 12/27/17 08:07 12/27/17 08:07 12/27/17 08:07 12/27/17 08:07 Oxygen Delivery Method Room Air Weight: 144 lb 13.499 oz Intake and Output for Last 24 Hours 12/25/17 12/26/17 12/27/17 23:59 23:59 23:59 Intake Total 1795 / 1795 440 / 440 600 / 600 Output Total 400 / 400 500 / 500 800 / 800 Balance 1395 / 1395 -60 / -60 -200 / -200 POC Glucose 12/27/17 12/27/17 12/26/17 11:16 06:39 22:25 POC Glucose 177 H 112 H 174 H 12/26/17 17:05 POC Glucose 135 H Assessment/Plan Hospitalist note: I am seeing this patient in conjunction with Ismael Echeverria. I independently seen and examined the patient. Progress note above reviewed and I agree with above treatment plan. Today, patient denies any significant complaints. Her vital signs are stable. - Physical Exam General: Alert, Oriented x3, Cooperative, No apparent distress. HEENT: Atraumatic, PERRLA, EOMI. Neck: Supple, No JVD, Negative Carotid Bruits, Trachea Midline, Thyroid Normal. Lungs: Clear to auscultation, Normal air movement, No rhonchi, No wheeze, No rales. Cardiovascular: Regular rate, Regular Rhythm, Normal S1, Normal S2, PMI Normal. Abdomen: Bowel Sounds Present, Soft, Non Tender, Non-Distended, No Hepato- splenomegaly. Extremities: Status post below knee amputation bilaterally. Skin: No rashes, No breakdown Neurological: Neuro grossly intact Assessment and plan: #1 physical debility/functional decline/weakness: Patient is unable to take care of herself at home, was laid in bed for 2 days and covered in feces and urine. Plan is for PT OT evaluation and treatment, behavioral health consult for depression. Patient refused to go to retirement facility and we are planning to have PT OT see her and if patient still refusing to go to retirement facility, she will be discharged home with home health. #2 probable genital/perianal Chapis: On nystatin powder. #3 other chronic medical problems: Stable, continue current medications as above. This note was generated with [employer] dictation software. It may contain incorrect words, spelling, and punctuation that were not noted in checking the note before signing.
--- NOTE | 2017-12-27 14:44 | CHAPLAIN ---
Type of Pastoral Visit _x__ Initial Visit ___ Follow-up Visit ___ On-call Visit ___ General Patient Visit ___ Spiritual Assessment ___ Family Conference ___ Bereavement ___ Rapid Response ___ Code Blue ___ Other (describe below) Pastoral Care Referral From _x__ Patient ___ Family ___ Nurse ___ Physician ___ Sand Mill Operator Facing Sand ___ Student Affairs Vice President ___ Other (describe below) Sacrament/Intervention _x__ Active listening ___ Anointing ___ Temple ___ Bereavement ___ Communion ___ Sabina exploration ___ ___ Life review _x__ Prayer ___ Reconciliation ___ Sacrament of Sick _x__ Supportive presence ___ Wedding ___ Other (describe below) Pastoral Comments
--- NOTE | 2017-12-27 14:52 | CASEMGMT ---
SW met with patient to discuss discharge planning. SW asked pt if she would consider going to a chcf facility short term for rehabilitation to gain her strength. Pt was receptive to this. SW asked pt if she had a nursing facility in mind. PT states [facility]. SW informed pt that this SW will have to call [facility] and send a referral to see if they would accept pt. PT was receptive to this. DEANNA called [facility] and left a message for Linda. DEANNA faxed clinicals to [facility]. Cement Finishing Supervisor will continue to follow. Plan: [facility] pending acceptance and approved pre-cert. Margaux Jeffers NURSES' ASSOCIATION EXECUTIVE DIRECTOR, SOLAR FIELD INSTALLATION CREW MEMBER
--- NOTE | 2017-12-27 15:28 | CASEMGMT ---
DEANNA Hoffman OLIVE KNOCKER, WRAPPER OPERATOR received call from STEVE Chandra, at [phone] asking for update on patient. DEANNA met with patient to ask if it was allowed for this social insurance adviser to call Pt's POA. Pt gave verbal approval for this social insurance adviser to call POA. DEANNA spoke with STEVE Chandra and provided updated. DEANNA informed Janeth Chandra that pt is agreeable to go to [facility] pending acceptance from facility. POA was receptive to this. lawn service worker will continue to follow and update Pt and POA as needed. Plan: [facility] pending acceptance from [facility] Margaux Jeffers OLIVE KNOCKER, WRAPPER OPERATOR
[2017-12-27 16:17] VITALS: BP 123/56; PULSE 48; RESP 18; TEMP 36.6; O2SAT 100
--- NOTE | 2017-12-27 16:22 | CASEMGMT ---
Social Work Note Placed call to Linda, admission at [facility], and left a vm as she was still in a meeting with their senior linux systems administrator regarding the pt's referral. Will provide determination tomorrow. Hong Echeverria paged with update. DEANNA to continue to follow and assist with discharge planning. Plan: [facility] for rehabilitation pending acceptance. Emi Abrams, DECORATOR STORE, REPLANTER
[2017-12-27 16:41] LABS: Bedside Glucose 138 mg/dL (70-110)
[2017-12-27 20:30] VITALS: BP 116/61; PULSE 54; RESP 16; TEMP 36.9; O2SAT 98
[2017-12-27] MEDS: MELATONIN 3 MG TABLET PO (22:28)
[2017-12-27] MEDS: 0.9% NaCl Peripheral Flush Adult/Peds IV (23:59)
[2017-12-28] MEDS: 0.9% Normal Saline 1,000 ML 75 ML IV
[2017-12-28 00:26] LABS: Bedside Glucose 182 mg/dL (70-110)
[2017-12-28 02:30] VITALS: BP 129/72; PULSE 49; RESP 16; TEMP 37.1; O2SAT 100
[2017-12-28] MEDS: Heparin Injection 5,000 UNITS/ML Syringe 5000 UNITS SC (06:58)
[2017-12-28 07:05] LABS: Bedside Glucose 105 mg/dL (70-110)
--- NOTE | 2017-12-28 08:19 | CASEMGMT ---
Social Work Note Call from [facility] stating that they are not able to accept the pt back. Will seek alternative placement options. SW to continue to follow and assist with discharge planning. Plan: SNF pending acceptance. Emi Abrams, FILLER PICKER, ELECTRIC METER INSPECTOR
--- NOTE | 2017-12-28 08:59 | CASEMGMT ---
Social Work Note [facility] won't accept pt back. Met with pt to ask for second choice for facility. Pt state [facility]. SW faxed clinicals to [facility]. SW also completed Geriatric Depression Scale. Pt scored a two on Geriatric Depression scale indicating normal. Erection Shop Supervisor will continue to follow to assist with discharge planning. Plan: [facility] pending acceptance from facility Margaux ARIZMENDI, AFFILIATE MARKETING COORDINATOR.
--- NOTE | 2017-12-28 09:08 | CASEMGMT ---
Social Work Note Met with pt to get opinions on other facilities she is interested in. Pt states I am fine with whichever facilities are close to my home. Pt states that she lives on [address]. SW asked pt if she approved SW sending referrals to facilities in [place] and pt agreed. SW faced clinicals to [facility]. Value Stream Coach will continue to follow. Plan: Discharge to nursing facility pending acceptance from facility. Margaux Jeffers PREASSEMBLER PRINTED CIRCUIT BOARD, REGIONAL FACILITIES SPECIALIST
[2017-12-28 09:14] VITALS: BP 119/57; PULSE 85; RESP 18; TEMP 36.4; O2SAT 100
[2017-12-28] MEDS: Nystatin Powder 15gm Bottle 1 APPLIC TOPICAL (09:18)
[2017-12-28] MEDS: Senna Tablet 2 TABLET PO (09:18)
[2017-12-28] MEDS: Clopidogrel Bisulfate 75 MG Tablet PO (09:19)
[2017-12-28] MEDS: Acetaminophen 500 MG Tablet 1000 MG PO (09:19)
[2017-12-28] MEDS: Aspirin 81 MG TAB.CHEW PO (09:19)
[2017-12-28] MEDS: Tolterodine Tartrate 4 MG CAP.SA PO (09:19)
[2017-12-28] MEDS: FLUoxetine 20 MG Capsule PO (09:19)
[2017-12-28] MEDS: Pantoprazole Sodium 40 MG Tablet PO (09:19)
[2017-12-28] MEDS: Gabapentin 600 MG Tablet PO (09:19)
--- NOTE | 2017-12-28 11:36 | CASEMGMT ---
Social Work Note Call from [facility] stating that they are not able to accept. Call from Janet, admissions at [facility], that they are able to accept the pt this date. Paged Hong Echeverria PA-C. Anticipate discharge this date. Pt and HCPOA to be notified. Emi Abrams, PSYCHOLOGIST DEVELOPMENTAL, CAPTAIN WAITER
--- NOTE | 2017-12-28 11:37 | CASEMGMT ---
Social Work Note Per Yasmin ASSET MANAGEMENT LEAD, SCHOOL OFFICE ASSISTANT, [facility] can accept pt. SW informed pt that [facility] can accept. PT states understanding. Plan: [facility] at discharge Margaux Jeffers ASSET MANAGEMENT LEAD, SCHOOL OFFICE ASSISTANT
[2017-12-28] MEDS: oxyCODONE 5 MG Tablet PO (11:38)
[2017-12-28 11:45] LABS: Bedside Glucose 105 mg/dL (70-110)
--- NOTE | 2017-12-28 11:54 | TREXTCAR_ITS ---
- Routine Orders/Code Status Suppository Type: Dulcolax 10mg Suppository Frequency: Daily PRN Routine Lab Work: CBC, BMP - Wound(s) RECTAL AREA Wound Type: SCATTERED SPOTS cleft Wound Type: Pressure Injury - Therapies Physical Therapy: Eval and Treat Occupational Therapy: Eval and Treat - Problem/Diagnosis (1) Generalized weakness Status: Chronic Current Visit: No (2) Arthritis Status: Chronic Current Visit: Yes (3) Depression Status: Chronic Current Visit: Yes (4) CAD (coronary artery disease) Status: Chronic Current Visit: No (5) PVD (peripheral vascular disease) with claudication Status: Chronic Current Visit: No (6) CKD stage 3 due to type 2 diabetes mellitus Status: Chronic Current Visit: No (7) DM2 (diabetes mellitus, type 2) Status: Chronic Current Visit: No (8) Essential (primary) hypertension Status: Chronic Current Visit: No - Allergies/Procedures Done in Hospital Allergies/Adverse Reactions: Allergies allopurinol Allergy (Verified 12/25/17 12:03) Unknown bacitracin Allergy (Verified 12/25/17 12:03) Unknown gemfibrozil [Gemfibrozil] Allergy (Verified 12/25/17 12:03) Unknown gentamicin [Gentamicin] Allergy (Verified 12/25/17 12:03) Unknown Penicillins Allergy (Verified 12/25/17 12:03) Unknown pentoxifylline Allergy (Verified 12/25/17 12:03) Unknown pioglitazone Allergy (Verified 12/25/17 12:03) Unknown pioglitazone HCl [From Actos] Allergy (Verified 12/25/17 12:03) Unknown tramadol HCl [From Ultram] Allergy (Verified 12/25/17 12:03) Unknown simvastatin Adverse Reaction (Verified 12/25/17 12:03) Pain in joints Procedures: None - Type of Care/Length of Stay Estimated LOS: Convalescent Care Less Than 30 days Type of Care Needed: Skilled Rehab Potential: Fair Prognosis: Fair - Additional Orders/Day of Discharge Day of Discharge: 12/28/17 - Dietary and Speech Recommendations Dietitian Recommendations/Changes: Suggest cardiac/liberal carbohydrate- controlled diet as needed. Will try ensure clear on medpass as tolerated. Suggest Nilay 1 packet BID for skin integrity/red coccyx. - Follow Up Care Primary Care Physician: Jarret Clark MD [Primary Care Provider] - Please follow up with your Primary Care Physician in: 2 weeks
--- NOTE | 2017-12-28 12:22 | CASEMGMT ---
Social Work Note DEANNA completed HENS, set up transport and faxed discharge paperwork to [facility]. DEANNA spoke with Chastity at [facility] and transportation is set up for 2:30pm. Notified Isac RN, and pt's POA of discharge time. Copies of HENS on chart and SNF packet. Copies of discharge paperwork on chart and originals on packet. Plan: [facility] for continued rehab. HENS submitted. Transport set up through [facility] via cot at 2:30pm. Margaux Jeffers ANALYSIS REPORTING DEVELOPER, DIGESTER OPERATOR HELPER
--- NOTE | 2017-12-28 13:50 | PCM.DC.SUM ---
Discharge Date and Diagnosis Date of Admission: 12/25/17 Date of Discharge: 12/28/17 - Primary Discharge Diagnosis Weakness and debility Arthritis Depression CAD PVD CKDIII DMt2 HTN - Secondary Discharge Diagnosis Chronic Problems (Last Updated 11/24/17 @ 11:36 by RANJIT Sheth) Arthritis (Chronic) Depression (Chronic) CAD (coronary artery disease) (Chronic) PVD (peripheral vascular disease) with claudication (Chronic) Cardiomyopathy, ischemic (Chronic) Generalized weakness (Chronic) CKD stage 3 due to type 2 diabetes mellitus (Chronic) DM2 (diabetes mellitus, type 2) (Chronic) Essential (primary) hypertension (Chronic) Hospital Course and Treatment Operations: None Procedures: None Summary of Care Provided: Physical exam on day of discharge: General: Resting comfortably NAD Psych: A/Ox3 normal affect HEENT: PEARRLA AT NC Neck: Supple NT CV: RRR no m/t/r/g/h Resp: CTA Abd: [id number] Soft NT no guarding or rigidity Ext: DP2+= no edema Skin: W/D normal turgor Lymph/Heme: No active bleeding or adenopathy Neuro: CN2-12 intact Hospital course: The patient is a 67 year old F with a hx of DMt2 s/p BL BKA, CKD, depresion, CAD, HTN, who presented to the ED from home after being found by her home care nurses covered in urine and stool. She had been discharged from SNF 2 days prior to home with [facility]. She laid in bed that whole time and never got up and was not taking care of herself. She had a similar occurrence recently and was sent to the hospital and subsequently discharged to [facility], and had been there up until this period. She was very weak and complained of right hip pain from arthritis. The patient was admitted for debility and pain control and placement. There were concerns for major depression as this was a concern on last admission that required a behavioral consult, however she refused to meet with behavioral. She initially refused to consider SNF placement. Ultimately she was very debilitated and she agreed to placement. She remained in stable condition throughout stay with good pain control in her hip. She was discharged in stable condition to [facility]. This patient was seen by Ismael Echeverria PA-C under the supervision of Doctor Ruby. Discharge Diet: Low fat/ Low Cholesterol, 1800 Calorie Control Diet, 2000 mg Sodium Diet Discharge Activity: Return to Normal Activity Home Medications: Medications to take at Discharge Gabapentin [Neurontin] 600 mg PO BID 07/03/13 Clopidogrel Bisulfate [Plavix] 75 mg PO DAILY 07/18/13 Fluoxetine [Prozac] 20 mg PO DAILY 02/08/14 Oxybutynin Chloride [Ditropan Xl] 15 mg PO DAILY 10/20/17 Pantoprazole Sodium [Protonix] 40 mg PO BID 11/04/17 Psyllium [Metamucil] 1 packet PO DAILY PRN PRN packet 11/06/17 Acetaminophen [Mapap] 1,000 mg PO BID 12/25/17 Aspirin [Aspirin, Baby] 81 mg PO DAILY@0800 12/25/17 Melatonin 3 mg PO QHS 12/25/17 Ondansetron [Zofran Odt] 4 mg PO Q6H PRN PRN 12/25/17 Sennosides [Senna] 2 tab PO DAILY 12/25/17 glyBURIDE [Micronase] 2.5 mg PO DAILY 12/25/17 Oxycodone [Oxyir] 5 mg PO Q4H PRN PRN 2 Days #12 tab 12/28/17 Following Prescrptions Were Given to Patient: Oxycodone [Oxyir] 5 mg PO Q4H PRN PRN 2 Days #12 tab PRN Reason: Pain Primary Care Physician: Jarret Clark MD [Primary Care Provider] - Please follow up with your Primary Care Physician in: 2 weeks Disposition: Intermediate facility Minutes spent on discharge:: 35 Patient Condition:: Stable Medical Necessity - Tobacco Use Smoking Status: Former smoker Tobacco Use: Non-smoker Meaningful Use Info Meaningful Use Diagnoses (Choose all that apply): None applicable
--- NOTE | 2017-12-28 13:57 | DS.PCM_ITS ---
Discharge Date and Diagnosis Date of Admission: 12/25/17 Date of Discharge: 12/28/17 - Primary Discharge Diagnosis Weakness and debility Arthritis Depression CAD PVD CKDIII DMt2 HTN - Secondary Discharge Diagnosis Chronic Problems (Last Updated 11/24/17 @ 11:36 by RANJIT Sheth) Arthritis (Chronic) Depression (Chronic) CAD (coronary artery disease) (Chronic) PVD (peripheral vascular disease) with claudication (Chronic) Cardiomyopathy, ischemic (Chronic) Generalized weakness (Chronic) CKD stage 3 due to type 2 diabetes mellitus (Chronic) DM2 (diabetes mellitus, type 2) (Chronic) Essential (primary) hypertension (Chronic) Hospital Course and Treatment Operations: None Procedures: None Summary of Care Provided: Physical exam on day of discharge: General: Resting comfortably NAD Psych: A/Ox3 normal affect HEENT: PEARRLA AT NC Neck: Supple NT CV: RRR no m/t/r/g/h Resp: CTA Abd: [id number] Soft NT no guarding or rigidity Ext: DP2+= no edema Skin: W/D normal turgor Lymph/Heme: No active bleeding or adenopathy Neuro: CN2-12 intact Hospital course: The patient is a 67 year old F with a hx of DMt2 s/p BL BKA, CKD, depresion, CAD , HTN, who presented to the ED from home after being found by her home care nurses covered in urine and stool. She had been discharged from SNF 2 days prior to home with [facility]. She laid in bed that whole time and never got up and was not taking care of herself. She had a similar occurrence recently and was sent to the hospital and subsequently discharged to [facility], and had been there up until this period. She was very weak and complained of right hip pain from arthritis. The patient was admitted for debility and pain control and placement. There were concerns for major depression as this was a concern on last admission that required a behavioral consult, however she refused to meet with behavioral. She initially refused to consider SNF placement. Ultimately she was very debilitated and she agreed to placement. She remained in stable condition throughout stay with good pain control in her hip. She was discharged in stable condition to [place]. This patient was seen by Ismael Echeverria PA-C under the supervision of Doctor Ruby. Discharge Diet: Low fat/ Low Cholesterol, 1800 Calorie Control Diet, 2000 mg Sodium Diet Discharge Activity: Return to Normal Activity Home Medications: Medications to take at Discharge Gabapentin [Neurontin] 600 mg PO BID 07/03/13 Clopidogrel Bisulfate [Plavix] 75 mg PO DAILY 07/18/13 Fluoxetine [Prozac] 20 mg PO DAILY 02/08/14 Oxybutynin Chloride [Ditropan Xl] 15 mg PO DAILY 10/20/17 Pantoprazole Sodium [Protonix] 40 mg PO BID 11/04/17 Psyllium [Metamucil] 1 packet PO DAILY PRN PRN packet 11/06/17 Acetaminophen [Mapap] 1,000 mg PO BID 12/25/17 Aspirin [Aspirin, Baby] 81 mg PO DAILY@0800 12/25/17 Melatonin 3 mg PO QHS 12/25/17 Ondansetron [Zofran Odt] 4 mg PO Q6H PRN PRN 12/25/17 Sennosides [Senna] 2 tab PO DAILY 12/25/17 glyBURIDE [Micronase] 2.5 mg PO DAILY 12/25/17 Oxycodone [Oxyir] 5 mg PO Q4H PRN PRN 2 Days #12 tab 12/28/17 Following Prescrptions Were Given to Patient: Oxycodone [Oxyir] 5 mg PO Q4H PRN PRN 2 Days #12 tab PRN Reason: Pain Primary Care Physician: Jarret Clark MD [Primary Care Provider] - Please follow up with your Primary Care Physician in: 2 weeks Disposition: Nursing Home facility Minutes spent on discharge:: 35 Patient Condition:: Stable Medical Necessity - Tobacco Use Smoking Status: Former smoker Tobacco Use: Non-smoker Meaningful Use Info Meaningful Use Diagnoses (Choose all that apply): None applicable
--- NOTE | 2017-12-28 14:43 | NURSING ---
Report called to Emi Cox at this time.
== END 2017-12-28 14:39 | disposition skilled nursing facility (03) | DRG 948 ==
LOC: ED 12:22 → MS3 14:13
PROVIDERS: Admitting Provider Hospitalist; Emergency Provider Emergency Medicine; Family Provider Family Medicine; PCP Family Medicine; Visit Provider Internal Medicine
DX: R53.1 Weakness (principal); E11.22 Type 2 diabetes mellitus with diabetic chronic kidney disease; E11.51 Type 2 diabetes mellitus with diabetic peripheral angiopathy without gangrene; R53.81 Other malaise; M16.12 Unilateral primary osteoarthritis, left hip; Z89.512 Acquired absence of left leg below knee; Z89.511 Acquired absence of right leg below knee; N18.3 Chronic kidney disease, stage 3 (moderate); I25.10 Atherosclerotic heart disease of native coronary artery without angina pectoris; Z87.891 Personal history of nicotine dependence; I25.2 Old myocardial infarction; G89.29 Other chronic pain; F32.9 Major depressive disorder, single episode, unspecified; K59.09 Other constipation; I25.5 Ischemic cardiomyopathy; I12.9 Hypertensive chronic kidney disease with stage 1 through stage 4 chronic kidney disease, or unspecified chronic kidney disease; Z79.84 Long term (current) use of oral hypoglycemic drugs; Z79.899 Other long term (current) drug therapy
CPT/HCPCS: 36415; 51702; 80053; 81001; 82550; 82962; 83605; 84443; 84484; 85025; 85610; 85730; 93005; 97162; 97166; 97802; 99285; J7030; A4216

== ENCOUNTER 2018-04-25 23:12 | Emergency (ER) | payer MEDICARE, OTHER, SELFPAY ==
[2018-04-25 23:14] VITALS: BP 104/79; PULSE 60; RESP 22; TEMP 36.7; O2SAT 97; BMI 79.3
--- NOTE | 2018-04-25 23:36 | CT_ITS ---
STUDY: CT CERVICAL SPINE WITHOUT CONTRAST REASON FOR EXAM: Female, 67 years old. Fall. Forehead laceration. RADIATION DOSAGE (If Supplied By Facility): CTDIvol = ( 23.68 ) mGy, DLP = ( 436.11 ) mGycm TECHNIQUE: High resolution transaxial imaging was performed without contrast material. Sagittal and coronal images were reconstructed. Individualized dose optimization techniques were used for this CT. COMPARISON: None FINDINGS: Normal craniovertebral junction. Normal anterior atlantoaxial articulation. Normal odontoid process. Normal cervical lordosis. Normal vertebral bodies and posterior osseous elements. C2-3: Normal endplates. Normal disc height and morphology. Normal central canal and intervertebral neuroforamina. C3-4: Normal endplates. Normal disc height and morphology. Normal central canal and intervertebral neuroforamina. C4-5: Normal endplates. Normal disc height and morphology. Normal central canal. Left neural foramina narrowing. C5-6: Normal endplates. Normal disc height and morphology. Normal central canal. Left neural foramina narrowing. C6-7: Normal endplates. Normal disc height and morphology. Normal central canal. Left neural foramina narrowing. C7-T1: Normal endplates. Normal disc height and morphology. Normal central canal and intervertebral neuroforamina. Normal visualized soft tissue structures. Bilateral pleural effusions. CT/Spine Cervical without Contras IMPRESSION: Degenerative changes of the cervical spine, no fracture identified. Bilateral pleural effusions. Electronically Signed: Wei Castorena MD at 0:19 EDT , Service support ,
--- NOTE | 2018-04-25 23:36 | CT_ITS ---
STUDY: CT BRAIN WITHOUT CONTRAST REASON FOR EXAM: Female, 67 years old. Fall. Laceration to forehead. RADIATION DOSAGE (If Supplied By Facility): CTDIvol = ( 44.99 ) mGy, DLP = ( 745.49 ) mGycm TECHNIQUE: Transaxial CT imaging of the brain was performed without administration of intravenous contrast material. Individualized dose optimization techniques were used for this CT. COMPARISON: None. FINDINGS: Mild midline frontal scalp swelling. Normal calvarium. Normal size ventricles and extra-axial spaces for the patient's age. Normal white matter tracts of the cerebral hemispheres. Small old bilateral basal ganglia lacunar infarctions. Normal thalami. Normal brainstem. Normal cerebellum. There is no intracranial hemorrhage. There are no findings of an acute ischemic infarction. Normal visualized paranasal sinuses. CT/Brain/Head without Contrast IMPRESSION: No acute intracranial abnormality. Midline frontal scalp swelling. Old small bilateral basal ganglia lacunar infarctions. Electronically Signed: Wei Castorena MD at 0:13 EDT , Service support ,
--- NOTE | 2018-04-26 00:42 | ED.VISSUMM ---
- ER Visit Summary Date of Service: 04/26/18 Chief Complaint: [] Mechanical fall with forehead injury History of Present Illness: The patient is a 67 F suffered a laceration of her forehead just prior to arrival. She was unwitnessed while transferring from her wheelchair to bed. She elected for head just above her eye. Tetanus is up-to-date per patient. She denies any significant complaints. No significant neck pain. No headache. Physical Examination: [] Vital signs reviewed General: Well-nourished well-developed Head: Normocephalic atraumatic. Forehead she has a 2 cm laceration Eyes: Pupils equal round and reactive to light extraocular movements intact ENT: TMs clear no hemotympanum no trauma Neck: Nontender full range of motion Cardiovascular: Regular rate rhythm no murmurs normal S1-S2 Respiratory: No distress clear to auscultation bilaterally chest nontender Abdomen: Soft nontender nondistended normal bowel sounds no masses Back: Nontender no CVA tenderness Extremities: Nontender active range of motion ?4 extremities no trauma. Bilateral [id number] amputations Skin: Forehead laceration Neuro alert oriented cranial nerves II through XII intact normal strength sensation reflexes Test Results: [] Emergency Department Course and Treatment: [] CT head neck showed nothing acute. Bilateral pleural effusions noted on this CT cervical. Patient denies any shortness of breath or other symptoms. Wound was cleansed with chlorhexidine and washed with 500 cc of saline. Anesthetized with 3 cc of lidocaine and closed with 4 simple sutures. She will be discharged Treatment Plan: [] Disposition: [] Impression: [] Mechanical fall Forehead laceration This note was generated with [employer] dictation software. It may contain incorrect words, spelling, and punctuation that were not noted in review of the chart prior to signing ED Disposition - Plan for ED Patient: Chief Complaint: Fall Referrals: Jarret Clark MD [Primary Care Provider] -
--- NOTE | 2018-04-26 00:43 | ED.DEP ---
ED Disposition - Plan for ED Patient: Disposition: Home or Assisted Living Chief Complaint: Fall Instructions: ED Mechanical Fall, ED Laceration All Referrals: Jarret Clark MD [Primary Care Provider] -
[2018-04-26 01:01] VITALS: BP 100/65; PULSE 57; RESP 20; O2SAT 98
--- NOTE | 2018-04-26 01:09 | ED.RN ---
called to give report to gabriel at [facility], gabriel does not have any questions at this time. notified transport to be here shortly.
== END 2018-04-26 01:15 | disposition home or self-care (01) ==
PROVIDERS: Emergency Provider Emergency Medicine; Family Provider Family Medicine; PCP Family Medicine
DX: S01.81XA Laceration without foreign body of other part of head, initial encounter (principal); W19.XXXA Unspecified fall, initial encounter; Y93.9 Activity, unspecified; Y92.9 Unspecified place or not applicable; J90 Pleural effusion, not elsewhere classified; I25.10 Atherosclerotic heart disease of native coronary artery without angina pectoris; E11.22 Type 2 diabetes mellitus with diabetic chronic kidney disease; I12.9 Hypertensive chronic kidney disease with stage 1 through stage 4 chronic kidney disease, or unspecified chronic kidney disease; N18.9 Chronic kidney disease, unspecified; F32.9 Major depressive disorder, single episode, unspecified; I25.2 Old myocardial infarction; I73.9 Peripheral vascular disease, unspecified; Z87.19 Personal history of other diseases of the digestive system; Z79.82 Long term (current) use of aspirin; Z79.02 Long term (current) use of antithrombotics/antiplatelets; Z79.84 Long term (current) use of oral hypoglycemic drugs; Z79.899 Other long term (current) drug therapy; Z72.0 Tobacco use
CPT/HCPCS: 12011; 70450; 72125; 99285

== ENCOUNTER 2018-05-07 13:53 | Emergency (ER) | payer MEDICARE, OTHER, SELFPAY ==
[2018-05-07 13:54] VITALS: BP 144/87; PULSE 85; RESP 17; TEMP 36.4; O2SAT 95; BMI 26.4
--- NOTE | 2018-05-07 14:01 | CT_ITS ---
STUDY: CT BRAIN WITHOUT CONTRAST REASON FOR EXAM: Female, 67 years old. Found on floor. RADIATION DOSAGE (If Supplied By Facility): CTDIvol = ( 44.99 ) mGy, DLP = ( 745.49 ) mGycm TECHNIQUE: Transaxial CT imaging of the brain was performed without administration of intravenous contrast material. Individualized dose optimization techniques were used for this CT. COMPARISON: April 25, 2018 FINDINGS: There is a soft tissue defect overlying the frontal calvarium consistent with underlying laceration. There is associated mild soft tissue on this is high in attenuation overlying the frontal calvarium consistent with a superficial hematoma. Stable calvarium. Normal size ventricles and extra-axial spaces for the patient's age. Normal white matter tracts of the cerebral hemispheres. Normal basal ganglia and thalami. Normal brainstem. Normal cerebellum. There is no intracranial hemorrhage. There are no findings of an acute ischemic infarction. Normal visualized paranasal sinuses. CT/Brain/Head without Contrast IMPRESSION: No acute intracranial process. Electronically Signed: Jennyfer Echavarria MD at 14:36 EDT Tel , Service support ,
--- NOTE | 2018-05-07 14:01 | CT_ITS ---
STUDY: CT CERVICAL SPINE WITHOUT CONTRAST REASON FOR EXAM: Female, 67 years old. Found on floor. RADIATION DOSAGE (If Supplied By Facility): CTDIvol = ( 25.61 ) mGy, DLP = ( 516.53 ) mGycm TECHNIQUE: High resolution transaxial imaging was performed without contrast material. Sagittal and coronal images were reconstructed. Individualized dose optimization techniques were used for this CT. COMPARISON: April 25, 2018 FINDINGS: Normal craniovertebral junction. There are degenerative changes of the anterior atlantoaxial articulation. Normal odontoid process. There is straightening of the normal cervical lordosis. The vertebral body heights are preserved. There is multilevel facet hypertrophy. C2-3: Normal endplates. Normal disc height and morphology. Normal central canal and intervertebral neuroforamina. C3-4: Normal endplates. Normal disc height and morphology. Normal central canal and intervertebral neuroforamina. C4-5: There is endplate spondylosis. There is narrowing of the left intervertebral neuroforamina. C5-6: There is endplate spondylosis. There is narrowing of the left intervertebral neuroforamina. C6-7: Normal endplates. Normal disc height and morphology. Normal central canal and intervertebral neuroforamina. C7-T1: Normal endplates. Normal disc height and morphology. Normal central canal and intervertebral neuroforamina. There are bilateral pleural effusions. CT/Spine Cervical without Contras IMPRESSION: Multilevel degenerative changes, as described above. Bilateral pleural effusions. Electronically Signed: Jennyfer Echavarria MD at 14:43 EDT Tel , Service support ,
--- NOTE | 2018-05-07 14:04 | ED.DCSUM_ITS ---
- ER Visit Summary Date of Service: 05/07/18 Chief Complaint: Fall History of Present Illness: The patient is a 67 F who comes from a assisted after a fall. [facility] personnel states the patient fell and her head was against the wall. Patient has a history of falls in the past. She was seen here a couple weeks ago after a fall. She had negative imaging at that time. She denies LOC. She states that her pain is mostly in her back and legs today. 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 She denies any head trauma. Physical Examination: Vital signs reviewed. HEENT exam reveals a an old laceration to the middle of the forehead. No other pain. Neck is nontender. Heart is regular rate and rhythm. Lungs clear to auscultation bilaterally. Abdomen soft nontender. Back is nontender. Extremity exam reveals a below knee bilaterally. She does have some mild left hand tenderness. She has an old wound on the left elbow. Her GCS is 15. Her neurologic exam is otherwise intact. She is alert and oriented ?3. Test Results: CAT scan of the head and cervical spine reveal nothing acute. X- rays of the left hand reveal degenerative changes. Lumbar x-rays also reveal degenerative changes Emergency Department Course and Treatment: Nursing spoke with the assisted states that the patient was in her wheelchair and fell forward and had her head stuck in between the toilet and the wall. Imaging is all negative here. Patient will be discharged back to her facility. She was given Tylenol here for her pain Treatment Plan: [] Disposition: Discharge Impression: Mechanical fall Left hand contusion This note was generated with [place] [employer] dictation software. It may contain incorrect words, spelling, and punctuation that were not noted in review of the chart prior to signing ED Disposition - Plan for ED Patient: Chief Complaint: Fall Referrals: Jarret Clark MD [Primary Care Provider] -
--- NOTE | 2018-05-07 14:04 | RAD_ITS ---
STUDY: X-RAY - LUMBAR SPINE REASON FOR EXAM: Female, 67 years old. Fell. TECHNIQUE: 3 view(s) of the lumbar spine were obtained. COMPARISON: CT of the abdomen and pelvis dated January 28, 2011 FINDINGS: Normal lumbar lordosis. There is no substantial scoliosis. There is a normal alignment of the vertebrae. There is multilevel endplate spondylosis of the lumbar vertebrae. There is multi-level degenerative disc disease with multi-level disc space narrowing. There is atherosclerotic calcification of the abdominal aorta without a demonstrated aneurysm. There are surgical clips within the right upper quadrant consistent prior cholecystectomy. RAD/Lumbar Spine 2 or 3 Views IMPRESSION: Degenerative changes of the spine, as detailed above. Atherosclerosis. Electronically Signed: Jennyfer Echavarria MD at 15:53 EDT Tel , Service support ,
--- NOTE | 2018-05-07 14:33 | RAD_ITS ---
STUDY: X-RAY - LEFT HAND REASON FOR EXAM: Female, 67 years old. Fell. TECHNIQUE: 3 view(s) of the hand. COMPARISON: None. FINDINGS: The bones are diffusely demineralized. There is joint space narrowing of the radiocarpal articulation consistent with degenerative arthrosis. Normal distal radioulnar joint. Normal visualized carpal bones. Normal carpal articulations Normal carpometacarpal articulation of the thumb. Normal second through fifth carpometacarpal joints. Normal metacarpi. Normal metacarpophalangeal joint of the thumb. Normal interphalangeal joint of the thumb. Normal proximal and distal phalanges of the thumb. Normal metacarpophalangeal joints of the second through fifth fingers. There is diffuse articular joint space narrowing of the proximal and distal interphalangeal joints of the second through fifth fingers, but without erosive changes or periarticular soft tissue swelling. There is a sclerotic focus within the fourth distal phalanx that likely reflects underlying bone island. The soft tissue structures are unremarkable. RAD/Hand Min 3 Views IMPRESSION: Degenerative changes. Electronically Signed: Jennyfer Echavarria MD at 15:12 EDT Tel , Service support ,
--- NOTE | 2018-05-07 15:18 | ED.DEP ---
ED Disposition - Plan for ED Patient: Disposition: Home or Assisted Living Chief Complaint: Fall Instructions: ED Mechanical Fall Referrals: Jarret Clark MD [Primary Care Provider] -
[2018-05-07 16:10] VITALS: BP 104/67; PULSE 75; RESP 14; O2SAT 96
[2018-05-07 16:55] VITALS: BP 127/80; PULSE 76; RESP 16; O2SAT 100
== END 2018-05-07 17:03 | disposition home or self-care (01) ==
PROVIDERS: Emergency Provider Emergency Medicine; Family Provider Family Medicine; PCP Family Medicine
DX: S60.222A Contusion of left hand, initial encounter (principal); R51 Headache; M54.9 Dorsalgia, unspecified; M79.604 Pain in right leg; M79.605 Pain in left leg; W05.0XXA Fall from non-moving wheelchair, initial encounter; Z91.81 History of falling; Y93.9 Activity, unspecified; Y92.129 Unspecified place in nursing home as the place of occurrence of the external cause; K21.9 Gastro-esophageal reflux disease without esophagitis; E11.9 Type 2 diabetes mellitus without complications; I10 Essential (primary) hypertension; F32.9 Major depressive disorder, single episode, unspecified; Z89.512 Acquired absence of left leg below knee; Z89.511 Acquired absence of right leg below knee; Z79.82 Long term (current) use of aspirin; Z79.899 Other long term (current) drug therapy
CPT/HCPCS: 70450; 72100; 72125; 73130; 99284